=== PATIENT | female | born 1965 | race African-American/Black ===

== ENCOUNTER 2024-03-29 13:36 | Outpatient (CLI) | payer MEDICARE, MEDICAID, SELFPAY ==
--- NOTE | ~2024-03-29 | US_ITS ---
EXAM: RENAL ULTRASOUND HISTORY: CHRONIC KIDNEY DISEASE COMPARISON: None FINDINGS: RIGHT KIDNEY: 10.2 x 4.3 x 4.7 cm. The parenchyma of the right kidney is unremarkable in echogenicity. Mild hydronephrosis. No renal calculi. A single rounded anechoic avascular foci detected within the interpolar region measuring 5.4 x 5.3 x 5.9 mm, consistent with a simple cyst. LEFT KIDNEY: 10.0 x 5.1 x 4.8 cm No hydronephrosis or renal calculi. The parenchyma of the left kidney is unremarkable in echogenicity. BLADDER: The bladder is minimally distended. Bilateral ureteral jets were utilized. IMPRESSION: Mild right-sided hydronephrosis. Simple cyst within the right kidney for which no further follow-up is needed. Examination is otherwise unremarkable. Reviewed, dictated and finalized at location A. S FARMER
--- OUTSIDE RECORDS SUMMARY | 2024-03-29 13:43 | XMS_ITS | Encounter Summary ---
Author Organization [facility] Care Team Providers Care Brake Repairer Bus Name Role Phone Unknown, Notinfile Primary Care Provider Unavail able Lesli Willis MD Primary Care Provider [phone] Unknown, Notinfile Unavailable Unavailable Carly Woods MD Primary Care Provider Encounter Details Date Type Department Care Team (Latest Contact Info) Description 01/09/2018 Orders Only [facility] ProviderJune MD [address] [place] [id number] Social History Tobacco Use Types Packs/Day Years Used Date Smoking Tobacco: Never Assessed Comments Unknown Sex and Gender Information Value Date Recorded Sex Assigned at Not on file 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 Historical Provider [facility] Final Result documented in this encounter Visit Diagnoses Not on filedocumented in this encounter Care Teams Brake Repairer Bus Relationship Specialty Start Date End Date Unknown, Notinfile PCP - General 02/12/18 06/20/18 Lesli Willis MD [address] [facility] [address] [place] [address] PCP - General Internal Medicine 06/21/18 09/11/23 Carly Woods MD [address] [facility] [address] [place] [address] PCP - General Internal Medicine 09/12/23 Unknown, Notinfile 06/21/18 documented as of this encounter
--- OUTSIDE RECORDS SUMMARY | 2024-03-29 13:43 | XMS_ITS | Encounter Summary ---
Author Organization [facility] Care Team Providers Care Reuse Technician Name Role Phone Unknown, Notinfile Primary Care Provider Unavail able Lesli Willis MD Primary Care Provider [phone] Unknown, Notinfile Unavailable Unavailable Carly Woods MD Primary Care Provider Encounter Details Date Type Department Care Team (Latest Contact Info) Description 12/24/2014 Orders Only [facility]INCON[facility] ProviderJune MD [address] [place] [id number] Social History Tobacco Use Types Packs/Day Years Used Date Smoking Tobacco: Never Assessed Comments Unknown Sex and Gender Information Value Date Recorded Sex Assigned at Not on file 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 Historical Provider [facility]ELVIN Final Result documented in this encounter Visit Diagnoses Not on filedocumented in this encounter Care Teams Reuse Technician Relationship Specialty Start Date End Date Unknown, Notinfile PCP - General 02/12/18 06/20/18 Lesli Willis MD [address] [facility] [address] [place] [address] PCP - General Internal Medicine 06/21/18 09/11/23 Carly Woods MD [address] [facility] [address] [place] [address] PCP - General Internal Medicine 09/12/23 Unknown, Notinfile 06/21/18 documented as of this encounter
--- OUTSIDE RECORDS SUMMARY | 2024-03-29 13:43 | XMS_ITS | Patient Health Summary ---
Author Organization [facility] Address [address] [place] [address] Care Team Providers Care Mail Caller Name Role Phone Lesli Willis MD Primary Care Provider [phone] Olinda Bermudez RN Unavailable Unavailabl e Note from [facility],non-owned Affiliates and Associated Physician Practices is amultiple site organization consisting of ambulatory clinics and hospital sitesin [place], [place], [place] and [place]. This disclosure is being madepursuant to the Care Everywhere program and may not contain all information available regarding this patient. Last updated 17.[facility] Allergies * Ampicillin(Itching) -Low Criticality * Aspirin(Other) -Low Criticality * Codeine(Anaphylaxis) -High Criticality Medications * Be aware that medications may not be up to date on this document. Alwaysverify current medications with the patient. * metoprolol succinate XL 24hr (TOPROL XL) 100 MG tablet(Started 03/15/2017) Take 1 (one) tablet by mouth DAILY * albuterol HFA (PROAIR HFA) 108 (90 BASE) MCG/ACT inhaler(Started 11/03/2015) Inhale 2 (two) puffs by mouth every 6 hours as needed for Shortness of Breath or Cough * Iron-Vitamin C (IRON 100/C PO) Take 1 tablet by mouth once daily 100 mg iron 75 mg vitamin c per talbet * amLODIPine (NORVASC) 10 MG tablet(Started 08/04/2017) Take 1 (one) tablet by mouth once daily * budesonide-formoterol (SYMBICORT) 160-4.5 MCG/ACT inhaler(Started 03/03/2020) Inhale 2 (two) puffs by mouth 2 times daily * gabapentin (NEURONTIN) 600 MG tablet(Started 06/21/2021) Take 1 (one) tablet by mouth at bedtime * tiZANidine (Zanaflex) 4 MG tablet(Started 12/12/2021) Take 1 (one) tablet by mouth once daily as needed * losartan (Cozaar) 100 MG tablet Take 1 (one) tablet by mouth once daily * omeprazole (PriLOSEC) 20 MG capsule(Started 10/25/2023) TAKE 1 CAPSULE BY MOUTH EVERY DAY BEFORE BREAKFAST 1 refill by 10/24/2024 Active Problems Problem Noted Date Diagnosed Date Bariatric surgery status 01/05/2022 Pre-op testing 06/09/2017 Thyrotoxicosis without thyroid storm 06/18/2015 Immunizations * FLU VACCINE QUAD IIV4 SPLIT 0.25 ML IM(Given 11/07/2017) * HEP B VACCINE, ADULT 3 DOSE(Given 04/17/2007) * INFLUENZA VACCINE, QUADR. (FLUZONE; FLULAVAL; FLUARIX; AFLURIA QUADRIVALENT; 6MO+), 0.5 ML (IIV4)(Given 12/10/2021, 03/03/2020) Social History Tobacco Use Types Packs/Day Years Used Date Smoking Tobacco: Former Cigarettes Q uit: 06/17/2009 Smokeless Tobacco: Never Alcohol Use Standard Drinks/Week Comments No 0 (1 standard drink = 0.6 oz pur e alcohol) Hunger Vital Sign Answer Date Recorded Within the past 12 months, y ou worried that your food would run out before you got the money to buy more. Never true 01/07/20 22 Within the past 12 months, t he food you bought just didn't last and you didn't have money to get more. Never true 01/06/2022 Sex and Gender Information Value Date Recorded Sex Assigned at Not on file Gender Identity Not on file Sexual Orientation Not on file Last Filed Vital Signs Vital Sign Reading Time Taken Comments Blood Pressure 131/84 01/06/2023 10:13 AM MAILER APPRENTICE Pulse 55 01/06/2023 10:13 AM MAILER APPRENTICE Temperature 36.3 ??C (97.4 ??F) 01/06/2023 10:[address] Respiratory Rate 18 02/04/2022 8:34 AM MAILER APPRENTICE Oxygen Saturation 99% 01/06/2023 10:13 AM MAILER APPRENTICE Inhaled Oxygen Concentration - - Weight 87.6 kg (193 lb 3.2 oz) 01/06/2023 10:13 AM MAILER APPRENTICE Height 162.6 cm (5' 4 ) 01/06/2023 10:13 AM MAILER APPRENTICE Body Mass Index 33.16 01/06/2023 10:13 AM MAILER APPRENTICE Medical Devices Implanted Type Area Hammersmith Helper Device Identifier Shelf Expiration Date Model / Serial / Lot Stent Uret 6fr 26cm Pstnr Brd Teth Implanted:Qty: 1 on 06/09/2017 by Aleksander Marino MD at [facility] Left: [employer] 01/24/2021 [id number] / / Stent Uret 6fr 26cm Pgtl Crv Tpr Tip Implanted:Qty: 1 on 07/11/2017 by Aleksander Marino MD at [facility] [employer] 12/23/2019 [id number] / / [id number] Explanted Type Area Hammersmith Helper Device Identifier Shelf Expiration Date Model / Serial / Lot Stent Uret 6fr 24cm Pgtl Crv Tpr Tip Implanted:Qty: 1 Explanted:Qty: 1 on 06/09/2017 at [facility] Left: Ureter [place] [employer] 04/11/2020 [id number] / / Procedures * IRON + TIBC PANEL(Performed 01/06/2023) Performed for Morbid obesity (HCC), Bariatric surgery status, Vitamin deficiency, Vitamin D deficiency, Postsurgical malabsorption (HCC) * FOLATE(Performed 01/06/2023) Performed for Morbid obesity (HCC), Bariatric surgery status, Vitamin deficiency, Vitamin D deficiency, Postsurgical malabsorption (HCC) * VITAMIN D 25-HYDROXY(Performed 01/06/2023) Performed for Morbid obesity (HCC), Bariatric surgery status, Vitamin deficiency, Vitamin D deficiency, Postsurgical malabsorption (HCC) * PREALBUMIN(Performed 01/06/2023) Performed for Morbid obesity (HCC), Bariatric surgery status, Vitamin deficiency, Vitamin D deficiency, Postsurgical malabsorption (HCC) * MAGNESIUM BLOOD(Performed 01/06/2023) Performed for Morbid obesity (HCC), Bariatric surgery status, Vitamin deficiency, Vitamin D deficiency, Postsurgical malabsorption (HCC) * FERRITIN(Performed 01/06/2023) Performed for Morbid obesity (HCC), Bariatric surgery status, Vitamin deficiency, Vitamin D deficiency, Postsurgical malabsorption (HCC) * COPPER BLOOD(Performed 01/06/2023) Performed for Morbid obesity (HCC), Bariatric surgery status, Vitamin deficiency, Vitamin D deficiency, Postsurgical malabsorption (HCC) * COMPREHENSIVE METABOLIC PANEL(Performed 01/06/2023) Performed for Morbid obesity (HCC), Bariatric surgery status, Vitamin deficiency, Vitamin D deficiency, Postsurgical malabsorption (HCC) * CBC W/O DIFFERENTIAL(Performed 01/06/2023) Performed for Morbid obesity (HCC), Bariatric surgery status, Vitamin deficiency, Vitamin D deficiency, Postsurgical malabsorption (HCC) * REF LAB-REQUEST PROBLEM(Performed 01/06/2023) * ZINC BLOOD(Performed 01/06/2023) Performed for Morbid obesity (HCC), Bariatric surgery status, Vitamin deficiency, Vitamin D deficiency, Postsurgical malabsorption (HCC) * VITAMIN K1(Performed 01/06/2023) Performed for Morbid obesity (HCC), Bariatric surgery status, Vitamin deficiency, Vitamin D deficiency, Postsurgical malabsorption (HCC) * VITAMIN E(Performed 01/06/2023) Performed for Morbid obesity (HCC), Bariatric surgery status, Vitamin deficiency, Vitamin D deficiency, Postsurgical malabsorption (HCC) * VITAMIN B12(Performed 01/06/2023) Performed for Morbid obesity (HCC), Bariatric surgery status, Vitamin deficiency, Vitamin D deficiency, Postsurgical malabsorption (HCC) * VITAMIN B1(Performed 01/06/2023) Performed for Morbid obesity (HCC), Bariatric surgery status, Vitamin deficiency, Vitamin D deficiency, Postsurgical malabsorption (HCC) * VITAMIN A(Performed 01/06/2023) Performed for Morbid obesity (HCC), Bariatric surgery status, Vitamin deficiency, Vitamin D deficiency, Postsurgical malabsorption (HCC) * PTH INTACT(Performed 01/06/2023) Performed for Morbid obesity (HCC), Bariatric surgery status, Vitamin deficiency, Vitamin D deficiency, Postsurgical malabsorption (HCC) * VITAMIN D 25-HYDROXY(Performed 08/05/2022) Performed for Morbid obesity (HCC), Bariatric surgery status, Vitamin deficiency, Vitamin D deficiency, Postsurgical malabsorption (HCC) * IRON + TIBC PANEL(Performed 08/05/2022) Performed for Morbid obesity (HCC), Bariatric surgery status, Vitamin deficiency, Vitamin D deficiency, Postsurgical malabsorption (HCC) * FOLATE(Performed 08/05/2022) Performed for Morbid obesity (HCC), Bariatric surgery status, Vitamin deficiency, Vitamin D deficiency, Postsurgical malabsorption (HCC) * ZINC BLOOD(Performed 08/05/2022) Performed for Morbid obesity (HCC), Bariatric surgery status, Vitamin deficiency, Vitamin D deficiency, Postsurgical malabsorption (HCC) * VITAMIN K1(Performed 08/05/2022) Performed for Morbid obesity (HCC), Bariatric surgery status, Vitamin deficiency, Vitamin D deficiency, Postsurgical malabsorption (HCC) * VITAMIN E(Performed 08/05/2022) Performed for Morbid obesity (HCC), Bariatric surgery status, Vitamin deficiency, Vitamin D deficiency, Postsurgical malabsorption (HCC) * VITAMIN B12(Performed 08/05/2022) Performed for Morbid obesity (HCC), Bariatric surgery status, Vitamin deficiency, Vitamin D deficiency, Postsurgical malabsorption (HCC) * VITAMIN B1(Performed 08/05/2022) Performed for Morbid obesity (HCC), Bariatric surgery status, Vitamin deficiency, Vitamin D deficiency, Postsurgical malabsorption (HCC) * VITAMIN A(Performed 08/05/2022) Performed for Morbid obesity (HCC), Bariatric surgery status, Vitamin deficiency, Vitamin D deficiency, Postsurgical malabsorption (HCC) * PTH INTACT(Performed 08/05/2022) Performed for Morbid obesity (HCC), Bariatric surgery status, Vitamin deficiency, Vitamin D deficiency, Postsurgical malabsorption (HCC) * PREALBUMIN(Performed 08/05/2022) Performed for Morbid obesity (HCC), Bariatric surgery status, Vitamin deficiency, Vitamin D deficiency, Postsurgical malabsorption (HCC) * MAGNESIUM BLOOD(Performed 08/05/2022) Performed for Morbid obesity (HCC), Bariatric surgery status, Vitamin deficiency, Vitamin D deficiency, Postsurgical malabsorption (HCC) * FERRITIN(Performed 08/05/2022) Performed for Morbid obesity (HCC), Bariatric surgery status, Vitamin deficiency, Vitamin D deficiency, Postsurgical malabsorption (HCC) * COPPER BLOOD(Performed 08/05/2022) Performed for Morbid obesity (HCC), Bariatric surgery status, Vitamin deficiency, Vitamin D deficiency, Postsurgical malabsorption (HCC) * COMPREHENSIVE METABOLIC PANEL(Performed 08/05/2022) Performed for Morbid obesity (HCC), Bariatric surgery status, Vitamin deficiency, Vitamin D deficiency, Postsurgical malabsorption (HCC) * CBC W/O DIFFERENTIAL(Performed 08/05/2022) Performed for Morbid obesity (HCC), Bariatric surgery status, Vitamin deficiency, Vitamin D deficiency, Postsurgical malabsorption (HCC) * VITAMIN D 25-HYDROXY(Performed 04/28/2022) Performed for Morbid obesity (HCC), Bariatric surgery status, Vitamin deficiency, Vitamin D deficiency, Postsurgical malabsorption (HCC) * IRON + TIBC PANEL(Performed 04/28/2022) Performed for Morbid obesity (HCC), Bariatric surgery status, Vitamin deficiency, Vitamin D deficiency, Postsurgical malabsorption (HCC) * FOLATE(Performed 04/28/2022) Performed for Morbid obesity (HCC), Bariatric surgery status, Vitamin deficiency, Vitamin D deficiency, Postsurgical malabsorption (HCC) * ZINC BLOOD(Performed 04/28/2022) Performed for Morbid obesity (HCC), Bariatric surgery status, Vitamin deficiency, Vitamin D deficiency, Postsurgical malabsorption (HCC) * VITAMIN K1(Performed 04/28/2022) Performed for Morbid obesity (HCC), Bariatric surgery status, Vitamin deficiency, Vitamin D deficiency, Postsurgical malabsorption (HCC) * VITAMIN E(Performed 04/28/2022) Performed for Morbid obesity (HCC), Bariatric surgery status, Vitamin deficiency, Vitamin D deficiency, Postsurgical malabsorption (HCC) * VITAMIN B12(Performed 04/28/2022) Performed for Morbid obesity (HCC), Bariatric surgery status, Vitamin deficiency, Vitamin D deficiency, Postsurgical malabsorption (HCC) * VITAMIN B1(Performed 04/28/2022) Performed for Morbid obesity (HCC), Bariatric surgery status, Vitamin deficiency, Vitamin D deficiency, Postsurgical malabsorption (HCC) * VITAMIN A(Performed 04/28/2022) Performed for Morbid obesity (HCC), Bariatric surgery status, Vitamin deficiency, Vitamin D deficiency, Postsurgical malabsorption (HCC) * PTH INTACT(Performed 04/28/2022) Performed for Morbid obesity (HCC), Bariatric surgery status, Vitamin deficiency, Vitamin D deficiency, Postsurgical malabsorption (HCC) * PREALBUMIN(Performed 04/28/2022) Performed for Morbid obesity (HCC), Bariatric surgery status, Vitamin deficiency, Vitamin D deficiency, Postsurgical malabsorption (HCC) * MAGNESIUM BLOOD(Performed 04/28/2022) Performed for Morbid obesity (HCC), Bariatric surgery status, Vitamin deficiency, Vitamin D deficiency, Postsurgical malabsorption (HCC) * IRON BLOOD(Performed 04/28/2022) Performed for Morbid obesity (HCC), Bariatric surgery status, Vitamin deficiency, Vitamin D deficiency, Postsurgical malabsorption (HCC) * FERRITIN(Performed 04/28/2022) Performed for Morbid obesity (HCC), Bariatric surgery status, Vitamin deficiency, Vitamin D deficiency, Postsurgical malabsorption (HCC) * COPPER BLOOD(Performed 04/28/2022) Performed for Morbid obesity (HCC), Bariatric surgery status, Vitamin deficiency, Vitamin D deficiency, Postsurgical malabsorption (HCC) * COMPREHENSIVE METABOLIC PANEL(Performed 04/28/2022) Performed for Morbid obesity (HCC), Bariatric surgery status, Vitamin deficiency, Vitamin D deficiency, Postsurgical malabsorption (HCC) * CBC W/O DIFFERENTIAL(Performed 04/28/2022) Performed for Morbid obesity (HCC), Bariatric surgery status, Vitamin deficiency, Vitamin D deficiency, Postsurgical malabsorption (HCC) * CARDIAC RHYTHM STRIP ORDER(Performed 01/18/2022) * EKG 12-LEAD(Performed 01/07/2022) Performed for Bariatric surgery status * CBC W AUTO DIFFERENTIAL(Performed 01/07/2022) * BASIC METABOLIC PANEL (CALCIUM TOTAL)(Performed 01/07/2022) * GLUCOSE - POINT OF CARE(Performed 01/06/2022) * FL UGI SERIES(Performed 01/06/2022) Performed for Bariatric surgery status * GLUCOSE - POINT OF CARE(Performed 01/06/2022) * B-TYPE NATRIURETIC PEPTIDE(Performed 01/06/2022) * VITAMIN D 25-HYDROXY(Performed 01/06/2022) * CBC W AUTO DIFFERENTIAL(Performed 01/06/2022) * BASIC METABOLIC PANEL (CALCIUM TOTAL)(Performed 01/06/2022) * TROPONIN I(Performed 01/06/2022) * GLUCOSE - POINT OF CARE(Performed 01/05/2022) * TROPONIN I(Performed 01/05/2022) * GLUCOSE - POINT OF CARE(Performed 01/05/2022) * GLUCOSE - POINT OF CARE(Performed 01/05/2022) * ENDOTRACHEAL TUBE NOTE(Performed 01/05/2022) * LAPAROSCOPIC REVISION GASTRIC BYPASS/KYM-EN-Y(Performed 01/05/2022) * GLUCOSE - POINT OF CARE(Performed 01/05/2022) * POTASSIUM BLOOD(Performed 01/05/2022) Performed for Pre-op evaluation * COMPREHENSIVE METABOLIC PANEL(Performed 12/15/2021) Performed for Pre-op evaluation * EKG 12-LEAD(Performed 12/15/2021) Performed for Pre-op evaluation * HELICOBACTER PYLORI UREA BREATH TEST(Performed 12/03/2021) Performed for H. pylori infection * HELICOBACTER PYLORI UREASE (STL)(Performed 10/29/2021) Performed for Diagnosis deferred * [place] ED EGD FLEX TRANSORAL DX(Performed 10/29/2021) * EGD(Performed 10/29/2021) * FL UGI SERIES(Performed 08/09/2021) Performed for Morbid obesity (HCC), Intestinal malabsorption, unspecified type (HCC), Bariatric surgery status * ZINC BLOOD(Performed 08/02/2021) Performed for Morbid obesity (HCC), Intestinal malabsorption, unspecified type (HCC), Bariatric surgery status * VITAMIN K1(Performed 08/02/2021) Performed for Morbid obesity (HCC), Intestinal malabsorption, unspecified type (HCC), Bariatric surgery status * VITAMIN E(Performed 08/02/2021) Performed for Morbid obesity (HCC), Intestinal malabsorption, unspecified type (HCC), Bariatric surgery status * VITAMIN D 25-HYDROXY(Performed 08/02/2021) Performed for Morbid obesity (HCC), Intestinal malabsorption, unspecified type (HCC), Bariatric surgery status * VITAMIN B12(Performed 08/02/2021) Performed for Morbid obesity (HCC), Intestinal malabsorption, unspecified type (HCC), Bariatric surgery status * VITAMIN B1(Performed 08/02/2021) Performed for Morbid obesity (HCC), Intestinal malabsorption, unspecified type (HCC), Bariatric surgery status * VITAMIN A(Performed 08/02/2021) Performed for Morbid obesity (HCC), Intestinal malabsorption, unspecified type (HCC), Bariatric surgery status * PREALBUMIN(Performed 08/02/2021) Performed for Morbid obesity (HCC), Intestinal malabsorption, unspecified type (HCC), Bariatric surgery status * IRON + TIBC PANEL(Performed 08/02/2021) Performed for Morbid obesity (HCC), Intestinal malabsorption, unspecified type (HCC), Bariatric surgery status * FERRITIN(Performed 08/02/2021) Performed for Morbid obesity (HCC), Intestinal malabsorption, unspecified type (HCC), Bariatric surgery status * COPPER BLOOD(Performed 08/02/2021) Performed for Morbid obesity (HCC), Intestinal malabsorption, unspecified type (HCC), Bariatric surgery status * COMPREHENSIVE METABOLIC PANEL(Performed 08/02/2021) Performed for Morbid obesity (HCC), Intestinal malabsorption, unspecified type (HCC), Bariatric surgery status * CBC W AUTO DIFFERENTIAL(Performed 08/02/2021) Performed for Morbid obesity (HCC), Intestinal malabsorption, unspecified type (HCC), Bariatric surgery status * CARDIAC EKG ORDER(Performed 01/12/2018) * CARDIAC EKG ORDER(Performed 07/13/2017) * STONE ANALYSIS QUANT(Performed 07/11/2017) Performed for Renal calculus or stone * PATHOLOGY TISSUE(Performed 07/11/2017) Performed for Kidney stone * FL KOMAL SURGERY(Performed 07/11/2017) Performed for Renal calculus or stone * CYSTOSCOPY WITH RETROGRADE PYELOGRAM(Performed 07/11/2017) Performed for Kidney stone * CYSTOSCOPY URETEROSCOPY WITH LASER/HOLMIUM LITHOTRIPSY(Performed 07/11/2017) Performed for Kidney stone * ENDOTRACHEAL TUBE NOTE(Performed 07/11/2017) * POTASSIUM (EPOC) CHARLES - POCT(Performed 07/11/2017) * EKG 12-LEAD(Performed 07/11/2017) Performed for Pre-op testing * LAB RESULTS ORDER(Performed 07/07/2017) * XR ABDOMEN KUB(Performed 06/23/2017) Performed for Renal stones * CARDIAC RHYTHM STRIP ORDER(Performed 06/13/2017) * LARYNGEAL MASK AIRWAY(Performed 06/09/2017) * CYSTOSCOPY WITH INSERTION URETERAL STENT(Performed 06/09/2017) Performed for Diagnosis unknown * EXTRACORPOREAL SHOCK WAVE LITHOTRIPSY (ESWL)(Performed 06/09/2017) Performed for Diagnosis unknown * XR ABDOMEN KUB(Performed 06/09/2017) Performed for Pre-op testing * XR ABDOMEN KUB(Performed 05/10/2017) Performed for Calculus of kidney * URINALYSIS AUTO - POINT OF CARE (AMB) [facility](Performed 05/10/2017) * CBC W AUTO DIFFERENTIAL(Performed 05/10/2017) * BASIC METABOLIC PANEL (CALCIUM TOTAL)(Performed 05/10/2017) * CULTURE URINE(Performed 05/10/2017) * CT ABDOMEN PELVIS WO CONTRAST(Performed 03/23/2017) Performed for Kidney stones * URINALYSIS AUTO - POINT OF CARE (AMB) [facility](Performed 03/15/2017) * REF LAB-PLEASE NOTE(Performed 03/15/2017) * CULTURE URINE(Performed 03/15/2017) * LAB HISTORICAL RESULTS-ONBASE(Performed 11/05/2015) Results * (ABNORMAL) IRON + TIBC PANEL (01/06/2023 12:42 PM MAILER APPRENTICE) Only the most recent of4 resultswithin the time period is included. TIBC 290 250 - 450 ug/dL [facility] INSURANCE BILL UIBC 253 131 - 425 ug/dL [facility] INSURANCE BILL Iron 37 27 - 159 ug/dL [facility] INSURANCE BILL Iron Saturation 13(L) 15 - 55 % [facility] INSURANCE BILL Comment:FASTING Blood BLOOD SPECIMEN / Unknown 01/06/2023 12:42 PM MAILER APPRENTICE 01/06/2023 Narrative Resulting Agency Comment Lab Testing performed at: [facility] [place] [address] ??[facility] [id number] Karin Delvalle [facility] - CHEMIS TRY ORDERABLES Performing Organization Address City/State/[facility] Co de Phone Number [facility] INSURANCE BILL [address] [place] [address] * FOLATE (01/06/2023 12:42 PM MAILER APPRENTICE) Only the most recent of3 resultswithin the time period is included. Folate >20.0 >3.0 ng/mL [facility] INSURANCE BILL Comment: A serum folate concentration of less than 3.1 ng/mL is considered to represent clinical deficiency. FASTING Blood BLOOD SPECIMEN / Unknown 01/06/2023 12:42 PM MAILER APPRENTICE 01/06/2023 Narrative Resulting Agency Comment Lab Testing performed at: [facility] [place] [address] ??[facility] [id number] Karin Delvalle APRN-[employer]ING ROLLING MACHINE OPERATOR LAB - CHEMIS TRY ORDERABLES [facility] INSURANCE BILL [address] [place] [address] * COPPER BLOOD (01/06/2023 12:41 PM MAILER APPRENTICE) Only the most recent of4 resultswithin the time period is included. Copper 92 80 - 158 ug/dL [facility] Comment: ? Detection Limit = 5 FASTING Blood BLOOD SPECIMEN / Unknown 01/06/2023 12:41 PM MAILER APPRENTICE 01/06/2023 Narrative [facility] - 01/17/2023 4:07 PM MAILER APPRENTICE Test(s) [id number], Serum or Plasma was developed and its performance characteristics determined by [employer]. It has not been cleared or approved by the Food and Drug Administration. Resulting Agency Comment Lab Testing performed at: [facility] ??[facility] [id number] Karin Delvalle APRN-RING ROLLING MACHINE OPERATOR LAB - CHEMIS TRY ORDERABLES Performing Organization Address City/[facility] Co de Phone Number [facility] INSURANCE BILL [address] [place] [address] * VITAMIN D 25-HYDROXY (01/06/2023 12:41 PM MAILER APPRENTICE) Only the most recent of5 resultswithin the time period is included. Vitamin D, 25 Hydroxy 38.7 30.0 - 100.0 ng/mL [facility] Comment: Vitamin D deficiency has been defined by the [place] of Medicine and an Endocrine Society practice guideline as a level of serum 25-OH vitamin D less than 20 ng/mL (1,2). The Endocrine Society went on to further define vitamin D insufficiency as a level between 21 and 29 ng/mL (2). 1. IOM ([place] of Medicine). 2010. Dietary reference ?? intakes for calcium and D. [place]: The ?? National Academies Press. 2. Neli MF, Mary LOMAX, Maximus SAMAYOA et al. ?? Evaluation, treatment, and prevention of vitamin D ?? deficiency: an Endocrine Society clinical practice ?? guideline. JCEM. 2011 Aug; 96(7):1911-30. FASTING Blood BLOOD SPECIMEN / Unknown 01/06/2023 12:41 PM MAILER APPRENTICE 01/06/2023 Narrative Resulting Agency Comment Lab Testing performed at: [facility] [place] [address] ??[facility] [phone] Karin Delvalle APRN-RING ROLLING MACHINE OPERATOR LAB - CHEMIS TRY ORDERABLES [facility] INSURANCE BILL [address] [place] [address] * CBC W/O DIFFERENTIAL (01/06/2023 12:41 PM MAILER APPRENTICE) Only the most recent of3 resultswithin the time period is included. WBC 6.2 3.4 - 10.8 x10E3/uL [facility] INSURANCE BILL RBC 4.20 3.77 - 5.28 x10E6/uL [facility] INSURANCE BILL Hemoglobin 11.2 11.1 - 15.9 g/dL [facility] INSURANCE BILL Hematocrit 35.2 34.0 - 46.6 % [facility] INSURANCE BILL MCV 84 79 - 97 fL [facility] INSURANCE BILL MCH 26.7 26.6 - 33.0 pg [facility] INSURANCE BILL MCHC 31.8 31.5 - 35.7 g/dL [facility] INSURANCE BILL RDW 13.1 11.7 - 15.4 % [facility] INSURANCE BILL Platelet Count 179 150 - 450 x10E3/uL [facility] INSURANCE BILL nRBC NOT AVAILABLE [facility] INSURANCE BILL Comment: FASTING Result cannot be obtained for this observation. Blood BLOOD SPECIMEN / Unknown 01/06/2023 12:41 PM MAILER APPRENTICE 01/06/2023 Narrative Resulting Agency Comment Lab Testing performed at: [facility] [place] [address] ??[facility] [phone] Karin Delvalle APRN-RING ROLLING MACHINE OPERATOR LAB - HEMATO LOGY ORDERABLES [facility] INSURANCE BILL [address] [place] [address] * COMPREHENSIVE METABOLIC PANEL (01/06/2023 12:41 PM MAILER APPRENTICE) Only the most recent of5 resultswithin the time period is included. Glucose 85 70 - 99 mg/dL [facility] INSURANCE BILL BUN 17 6 - 24 mg/dL [facility] INSURANCE BILL Creatinine 1.00 0.57 - 1.00 mg/dL [facility] INSURANCE BILL eGFR by CKD-EPI 65 >59 mL/min/1.7 3 [facility] INSURANCE BILL BUN/Creatinine Ratio 17 9 - 23 [facility] INSURANCE BILL Sodium 141 134 - 144 mmol/L [facility] INSURANCE BILL Potassium 4.4 3.5 - 5.2 mmol/L [facility] INSURANCE BILL Chloride 103 96 - 106 mmol/L [facility] INSURANCE BILL CO2 25 20 - 29 mmol/L [facility] INSURANCE BILL Calcium 9.4 8.7 - 10.2 mg/dL [facility] INSURANCE BILL Protein Total 6.9 6.0 - 8.5 g/dL [facility] INSURANCE BILL Albumin 4.2 3.8 - 4.9 g/dL [facility] INSURANCE BILL Globulin Total 2.7 1.5 - 4.5 g/dL [facility] INSURANCE BILL Albumin/Globulin Ratio 1.6 1.2 - 2.2 [facility] INSURANCE BILL Bilirubin Total 1.1 0.0 - 1.2 mg/dL [facility] INSURANCE BILL Alkaline Phosphatase 110 44 - 121 IU/L [facility] INSURANCE BILL AST 21 0 - 40 IU/L [facility] INSURANCE BILL ALT 15 0 - 32 IU/L [facility] INSURANCE BILL Comment:FASTING Blood BLOOD SPECIMEN / Unknown 01/06/2023 12:41 PM MAILER APPRENTICE 01/06/2023 Narrative Resulting Agency Comment Lab Testing performed at: [facility] [place] [address] ??[facility] [phone] Karin Delvalle PUBLIC STENOGRAPHER-RING ROLLING MACHINE OPERATOR LAB - CHEMIS TRY ORDERABLES [facility] INSURANCE BILL [address] [place] [address] * PREALBUMIN (01/06/2023 12:41 PM MAILER APPRENTICE) Only the most recent of4 resultswithin the time period is included. Prealbumin 18 10 - 36 mg/dL [facility] INSURANCE BILL Comment:FASTING Blood BLOOD SPECIMEN / Unknown 01/06/2023 12:41 PM MAILER APPRENTICE 01/06/2023 Narrative Resulting Agency Comment Lab Testing performed at: [employer] [address] ??[facility] [phone] Karin Delvalle APRN-[place] LAB - CHEMIS TRY ORDERABLES Performing Organization Address [facility] Co de Phone Number [facility] INSURANCE BILL [address] [place] [address] * MAGNESIUM BLOOD (01/06/2023 12:41 PM MAILER APPRENTICE) Only the most recent of3 resultswithin the time period is included. Magnesium 2.3 1.6 - 2.3 mg/dL [facility] INSURANCE BILL Comment:FASTING Blood BLOOD SPECIMEN / Unknown 01/06/2023 12:41 PM MAILER APPRENTICE 01/06/2023 Narrative Resulting Agency Comment Lab Testing performed at: [facility] [address] ??[facility] [phone] Karin Delvalle APRN-[place] LAB - CHEMIS TRY ORDERABLES Performing Organization Address [facility] Co de Phone Number [facility] INSURANCE BILL [address] [place] [address] * FERRITIN (01/06/2023 12:41 PM MAILER APPRENTICE) Only the most recent of4 resultswithin the time period is included. Ferritin 84 15 - 150 ng/mL [facility] INSURANCE BILL Comment:FASTING Blood BLOOD SPECIMEN / Unknown 01/06/2023 12:41 PM MAILER APPRENTICE 01/06/2023 Narrative Resulting Agency Comment Lab Testing performed at: [facility] [address] ??[facility] [phone] Karin Delvalle APRN-RING ROLLING MACHINE OPERATOR LAB - CHEMIS TRY ORDERABLES Performing Organization Address [facility] Co de Phone Number [facility] INSURANCE BILL [address] [place] [address] * (ABNORMAL) REF LAB-REQUEST PROBLEM (01/06/2023 12:40 PM MAILER APPRENTICE) Request Problem NOT AVAILABLE (A) [facility] INSURANCE BILL Comment: Comment: Test not performed. Deterioration occurred during specimen handling. ?TEST: ??[id number] ??Zinc, Plasma or Serum CONTACTED BY WALKER Morgan RN AT YOUR FACILITY ON 01-27-23. FASTING Result cannot be obtained for this observation. 01/06/2023 12:4 0 PM MAILER APPRENTICE 01/06/2023 Narrative [facility] INSURANCE BILL - 01/27/2023 4:07 PM MAILER APPRENTICE Test(s) 083928-Tztd, Plasma or Serum was developed and its performance characteristics determined by [employer]. It has not been cleared or approved by the Food and Drug Administration. Resulting Agency Comment Lab Testing performed at: [employer] ??[facility] [phone] Karin Delvalle APRN-RING ROLLING MACHINE OPERATOR LAB - CHEMIS TRY ORDERABLES Performing Organization Address [facility] Co de Phone Number [facility] INSURANCE BILL [address] [place] [address] * VITAMIN K1 (01/06/2023 12:40 PM MAILER APPRENTICE) Only the most recent of4 resultswithin the time period is included. Vitamin K1 0.19 0.10 - 2.20 ng/mL [facility] INSURANCE BILL Comment:FASTING Blood BLOOD SPECIMEN / Unknown 01/06/2023 12:40 PM MAILER APPRENTICE 01/06/2023 Narrative [facility] INSURANCE BILL - 01/15/2023 8:06 AM MAILER APPRENTICE Test(s) 227277-Czzyhgf K1 was developed and its performance characteristics determined by [employer]. It has not been cleared or approved by the Food and Drug Administration. Resulting Agency Comment Lab Testing performed at: [employer] [address] ??[facility] [phone] Karin Delvalle [facility]NCHAR[facility] LAB - CHEMCrowdTogether TRY ORDERABLES Performing Organization Address [facility] de Phone Number [facility] INSURANCE BILL [address] [place] [address] * ZINC BLOOD (01/06/2023 12:40 PM MAILER APPRENTICE) Only the most recent of4 resultswithin the time period is included. Zinc, Plasma or Serum NOT AVAILABLE ug/dL [facility] INSURANCE BILL Comment: Test not performed. Deterioration occurred during specimen handling. CONTACTED BY WALKER Morgan RN AT YOUR FACILITY ON 01-27-23. ? Detection Limit = 5 FASTING Result cannot be obtained for this observation. Blood BLOOD SPECIMEN / Unknown 01/06/2023 12:40 PM MAILER APPRENTICE 01/06/2023 Narrative [facility] INSURANCE BILL - 01/27/2023 4:07 PM MAILER APPRENTICE Test(s) 537619-Gphu, Plasma or Serum was developed and its performance characteristics determined by [employer]. It has not been cleared or approved by the Food and Drug Administration. Resulting Agency Comment Lab Testing performed at: [employer] ??[facility] [phone] Karin Delvalle APRNTroodonSAUGUS GENERAL HOSPITAL PathAR CHEMCrowdTogether TRY ORDERABLES Performing Organization Address [facility] de Phone Number [facility] INSURANCE BILL [address] [place] [address] * VITAMIN A (01/06/2023 12:40 PM MAILER APPRENTICE) Only the most recent of4 resultswithin the time period is included. Vitamin A 28.5 20.1 - 62.0 ug/dL [facility] INSURANCE BILL Comment: Reference intervals for vitamin A determined [facility]. Individuals with vitamin A less than 20 ug/dL are considered vitamin A deficient and those with serum concentrations less than 10 ug/dL are considered severely deficient. ?. This test was developed and its performance characteristics determined by [facility]. It has not been cleared or approved by the Food and Drug Administration. FASTING Blood BLOOD SPECIMEN / Unknown 01/06/2023 12:40 PM MAILER APPRENTICE 01/06/2023 Narrative [facility] - 01/13/2023 6:07 AM MAILER APPRENTICE Test(s) 349405-Vrlfxby E(Alpha Tocopherol); 549184- Vitamin E(Gamma Tocopherol) was developed and its performance characteristics determined by [facility]. It has not been cleared or approved by the Food and Drug Administration. Resulting Agency Comment Lab Testing performed at: [address] ??[facility] [phone] Karin Delvalle APRN-RING ROLLING MACHINE OPERATOR LAB - CHEMIS TRY ORDERABLES [facility] INSURANCE BILL [address] [place] [address] * VITAMIN E (01/06/2023 12:40 PM MAILER APPRENTICE) Only the most recent of4 resultswithin the time period is included. Vitamin E Alpha Tocopherol 10.0 7.0 - 25.1 mg/L [facility] INSURANCE BILL Vitamin E Gamma Tocopherol 0.7 0.5 - 5.5 mg/L [facility] INSURANCE BILL Comment: Reference intervals for alpha and gamma-tocopherol determined from National Health and Nutrition Examination Survey, 1141-9832. Individuals with alpha-tocopherol levels less than 5.0 mg/L are considered vitamin E deficient. FASTING Blood BLOOD SPECIMEN / Unknown 01/06/2023 12:40 PM MAILER APPRENTICE 01/06/2023 Narrative [facility] INSURANCE BILL - 01/13/2023 6:07 AM MAILER APPRENTICE Test(s) 026477-Tslmnnx E(Alpha Tocopherol); 513888- Vitamin E(Gamma Tocopherol) was developed and its performance characteristics determined by [facility]. It has not been cleared or approved by the Food and Drug Administration. Resulting Agency Comment Lab Testing performed at: [facility] ??[facility] [phone] Karin Delvalle APRN-RING ROLLING MACHINE OPERATOR LAB - CHEMIS TRY ORDERABLES Performing Organization Address City/[facility]/ZIP Co de Phone Number [facility] INSURANCE BILL [address] [place] [address] * VITAMIN B1 (01/06/2023 12:40 PM MAILER APPRENTICE) Only the most recent of4 resultswithin the time period is included. Vitamin B1 Whole Blood 113.4 66.5 - 200.0 nmol/L [facility] Comment:FASTING Blood BLOOD SPECIMEN / Unknown 01/06/2023 12:40 PM MAILER APPRENTICE 01/06/2023 Narrative [facility] - 01/10/2023 6:06 AM MAILER APPRENTICE Test(s) 335052-Uqm. B1, Whole Blood was developed and its performance characteristics determined by [employer]. It has not been cleared or approved by the Food and Drug Administration. Resulting Agency Comment Lab Testing performed at: [facility] ??[facility] [phone] Karin Delvalle APRN-RING ROLLING MACHINE OPERATOR LAB - CHEMIS TRY ORDERABLES Performing Organization Address [facility] de Phone Number [facility] INSURANCE BILL [address] [place] [address] * PTH INTACT (01/06/2023 12:40 PM MAILER APPRENTICE) Only the most recent of3 resultswithin the time period is included. PTH Intact 35 15 - 65 pg/mL [facility] Comment:FASTING Blood BLOOD SPECIMEN / Unknown 01/06/2023 12:40 PM MAILER APPRENTICE 01/06/2023 Narrative Resulting Agency Comment Lab Testing performed at: [facility] [address] ??[facility] [phone] Karin Delvalle APRN-RING ROLLING MACHINE OPERATOR LAB - CHEMIS TRY ORDERABLES Performing Organization Address City/[facility]/ZIP Co de Phone Number [facility] [address] [place] [address] * VITAMIN B12 (01/06/2023 12:40 PM MAILER APPRENTICE) Only the most recent of4 resultswithin the time period is included. Pathologist [facility] Vitamin B12 627 232 - 1,245 pg/mL [facility] INSURANCE BILL Comment:FASTING Blood BLOOD SPECIMEN / Unknown 01/06/2023 12:40 PM MAILER APPRENTICE 01/06/2023 Narrative Resulting Agency Comment Lab Testing performed at: [facility] [place] [address] ??[facility] [phone] Karin Delvalle PUBLIC STENOGRAPHERINCOM Storage LAB - CHEMIS TRY ORDERABLES [facility] INSURANCE BILL [address] [place] [address] * IRON BLOOD (04/28/2022 10:10 AM MAILER APPRENTICE) [facility] Iron 33 27 - 159 ug/dL [facility] Blood BLOOD SPECIMEN / Unknown 04/28/2022 10:10 AM MAILER APPRENTICE 04/28/2022 Narrative Resulting Agency Comment Lab Testing performed at: [facility] [place] [address] ??[facility] [phone] Karin Delvalle APRNINCOM Storage LAB - CHEMIS TRY ORDERABLES [facility] INSURANCE BILL [address] [place] [address] * CARDIAC RHYTHM STRIP ORDER (01/18/2022 1:02 AM MAILER APPRENTICE) Only the most recent of2 resultswithin the time period is included. Narrative 01/18/2022 1:02 AM MAILER APPRENTICE Ordered by an unspecified provider. Scanned Document CARDIAC SERVICES ORD ERABLES * EKG 12-LEAD (01/07/2022 9:29 AM MAILER APPRENTICE) Only the most recent of3 resultswithin the time period is included. [facility] Ventricular Rate 48 BPM [facility] Atrial Rate 48 BPM [facility] P-R Interval 172 ms [facility] QRS Duration ms 88 ms [facility] Q-T Interval ms 462 ms [facility] QTC Calculation (Bezet) 412 ms [facility] Calculated P [employer] 46 degrees [facility]USE Calculated R [employer] 11 degrees [facility] Calculated T [employer] 16 degrees [facility] Interpretation EKG Sinus bradycardia Minimal voltage criteria for LVH, may be normal variant Borderline ECG When compared with ECG of 15-DEC-2021 13:17, No significant change was found Confirmed by ALEX VIEYRA, BETTY ([id number]) on 01/07/2022 11:41:00 AM [facility] 01/07/2022 9:29 AM MAILER APPRENTICE 01/07/2022 11:41 AM MAILER APPRENTICE Devante Tracey MD ECG ORDERABLES [facility] * (ABNORMAL) CBC W AUTO DIFFERENTIAL (01/07/2022 4:49 AM MAILER APPRENTICE) Only the most recent of4 resultswithin the time period is included. WBC 9.2 4.4 - 10.7 x10E9/L 01/07/2022 5:19 AM MAILER APPRENTICE [facility] WBC Corrected 01/07/2022 5:19 AM MAILER APPRENTICE [facility] RBC 4.02 3.80 - 5.20 x10E12/L 01/07/2022 5:19 AM MAILER APPRENTICE [facility] Hemoglobin 10.1(L) 12.0 - 15.6 gm/dL 01/07/2022 5:19 AM MAILER APPRENTICE [facility] Hematocrit 32.9(L) 35.9 - 45.5 % 01/07/2022 5:19 AM MAILER APPRENTICE [facility] MCV 81.8 80.7 - 98.3 fl 01/07/2022 5:19 AM MAILER APPRENTICE [facility] MCH 25.1(L) 26.7 - 34.0 pg 01/07/2022 5:19 AM MAILER APPRENTICE [facility] MCHC 30.7(L) 30.8 - 35.9 gm/dL 01/07/2022 5:19 AM MAILER APPRENTICE [facility] Platelet Count 194 153 - 416 x10E9/L 01/07/2022 5:19 AM MAILER APPRENTICE [facility] RDW-CV 14.5 12.1 - 14.9 % 01/07/2022 5:19 AM [facility] MPV 11.3 9.4 - 12.9 fl 01/07/2022 5:19 AM [facility] Neutrophils % 63.5 44.0 - 73.0 % 01/07/2022 5:19 AM [facility] Lymphocytes % 29.5 20.0 - 43.0 % 01/07/2022 5:19 AM [facility] Monocytes % 6.0 5.0 - 13.0 % 01/07/2022 5:19 AM [facility] Eosinophils % 0.4 0.0 - 6.0 % 01/07/2022 5:19 AM [facility] Basophils % 0.3 0.0 - 2.0 % 01/07/2022 5:19 AM [facility] Immature Granulocytes 0.3 0 - 1 % 01/07/2022 5:19 AM [facility] Neutrophil Absolute 5.86 2.01 - 7.14 x10E9/L 01/07/2022 5:19 AM [facility] Lymphocytes Absolute 2.73 1.07 - 3.94 x10E9/L 01/07/2022 5:19 AM [facility] Monocytes Absolute 0.55 0.26 - 1.07 x10E9/L 01/07/2022 5:19 AM [facility] Eosinophils Absolute 0.04 0 - 0.47 x10E9/L 01/07/2022 5:19 AM [facility] Basophils Absolute 0.03 0 - 0.08 x10E9/L 01/07/2022 5:19 AM [facility] Immature Granulocytes Absolute 0.03 0.00 - 0.06 x10E9/L 01/07/2022 5:19 AM [facility] nRBC Auto 0 /100 WBC 01/07/2022 5:19 AM [facility] Blood BLOOD SPECIMEN / Unknown Venipuncture / Unknown 01/07/2022 4:49 AM MAILER APPRENTICE 01/07/2022 5:00 AM MAILER APPRENTICE Devante Tracey MD LAB - HEMATOLOGY ORD ERABLES [facility] [address] [place] [address] * (ABNORMAL) BASIC METABOLIC PANEL (CALCIUM TOTAL) (01/07/2022 4:49 AM MAILER APPRENTICE) Only the most recent of3 resultswithin the time period is included. Glucose 97 70 - 105 mg/dL 01/07/2022 5:32 AM MAILER APPRENTICE [facility] Sodium 139 136 - 145 mmol/L 01/07/2022 5:32 AM [facility] Potassium 3.5 3.5 - 5.1 mmol/L 01/07/2022 5:32 AM [facility] Chloride 105 98 - 107 mmol/L 01/07/2022 5:32 AM [facility] CO2 24 23 - 31 mmol/L 01/07/2022 5:32 AM [facility] Calcium 9.0 8.4 - 10.4 mg/dL 01/07/2022 5:32 AM [facility] Anion Gap 10 8 - 18 mmol/L 01/07/2022 5:32 AM [facility] BUN 28(H) 9.8 - 20.1 mg/dL 01/07/2022 5:32 AM [facility] Creatinine 1.48(H) 0.57 - 1.11 mg/dL 01/07/2022 5:32 AM [facility] eGFR by CKD-EPI 41(L) >=90 mL/min/1.7 3 m2 01/07/2022 5:32 AM [facility] Blood BLOOD SPECIMEN / Unknown Venipuncture / Unknown 01/07/2022 4:49 AM MAILER APPRENTICE 01/07/2022 5:00 AM MAILER APPRENTICE Devante Tracey MD LAB - CHEMISTRY BESSIE BARNARD [facility] [address] [place] [address] * (ABNORMAL) GLUCOSE - POINT OF CARE (01/06/2022 11:31 AM MAILER APPRENTICE) Only the most recent of6 resultswithin the time period is included. Glucose WB/POC 143(H) 70 - 106 mg/dL 01/06/2022 11:36 AM MAILER APPRENTICE [facility] Specimen Type Cap Fingerstick 2021 11:36 AM MAILER APPRENTICE [facility] Blood BLOOD SPECIMEN / Unknown 01/06/2022 11:31 AM MAILER APPRENTICE 01/06/2022 11:35 AM MAILER APPRENTICE Devante Tracey MD LAB - POINT OF CARE ORDERABLES [facility] [address] [place] [address] * FL UGI SERIES WO KUB (01/06/2022 9:51 AM MAILER APPRENTICE) Only the most recent of2 resultswithin the time period is included. Anatomical Region Laterality Modality Abdomen Radiographic Chantel ging 01/06/2022 10:1 1 AM MAILER APPRENTICE Impressions 01/06/2022 10:44 AM MAILER APPRENTICE IMPRESSION: There is no evidence of obstruction or leak status post revision of Kym-en-Y gastric bypass. Edited by Ruth Durant on 01/06/2022 10:23 AM > Interpreting Provider: Yusra Burnham MD on 01/06/2022 10:44 AM Narrative 01/06/2022 10:44 AM MAILER APPRENTICE PROCEDURE: ??FL UGI SERIES, DATE/TIME OF EXAM: ??01/06/2022 9:53 AM, LOCATION [facility] INDICATION: Z98.84: Bariatric surgery status ADDITIONAL CLINICAL INFORMATION: Ordering Provider Reason For Exam: ??Postoperative day 1 laparoscopic revision of gastric bypass/Kym-en-Y Technologist Note: Additional: COMPARISON: None. TECHNIQUE: 50 mL of Isovue-370 was administered orally following acquisition of a metal cut off saw tender view of the abdomen. FINDINGS: Flight Operations Manager view shows atelectasis at the left lung base. Bowel gas pattern appears benign. Surgical clips are present in the right upper quadrant of the abdomen. Following administration of contrast, the esophagus empties readily into a small gastric remnant. The gastric remnant empties rapidly into a loop of small bowel of normal caliber. There is no evidence of obstruction or of leak. FLUOROSCOPY DOSE: ??9.61 mGy Reference air kerma (ka,r). FLUOROSCOPY TIME: ??0.24 minutes; Number of images: ??91 Procedure Note Yusra Burnham MD - 01/06/2022 PROCEDURE: FL UGI SERIES, DATE/TIME OF EXAM: 01/06/2022 9:53 AM,LOCATION [facility] INDICATION: Z98.84: Bariatric surgery status ADDITIONAL CLINICAL INFORMATION: Ordering Provider Reason For Exam: Postoperative day 1 laparoscopic revision of gastric bypass/Kym-en-Y Technologist Note: Additional: COMPARISON: None. TECHNIQUE: 50 mL of Isovue-370 was administered orally following acquisition of a metal cut off saw tender view of the abdomen. FINDINGS: Flight Operations Manager view shows atelectasis at the left lung base. Bowel gas pattern appears benign. Surgical clips are present in the right upper quadrantof the abdomen. Following administration of contrast, the esophagus empties readily intoa small gastric remnant. The gastric remnant empties rapidly into a loopof small bowel of normal caliber. There is no evidence of obstruction or of leak. FLUOROSCOPY DOSE: 9.61 mGy Reference air kerma (ka,r). FLUOROSCOPY TIME: 0.24 minutes; Number of images: 91 IMPRESSION: There is no evidence of obstruction or leak status post revision of Kym-en-Y gastric bypass. Edited by Ruth Durant on 01/06/2022 10:23 AM > Interpreting Provider: Yusra Burnham MD on 01/06/2022 10:44 AM Devante Tracey MD FLUOROSCOPY ORDERABL ES * (ABNORMAL) TROPONIN I (01/06/2022 2:51 AM MAILER APPRENTICE) Only the most recent of2 resultswithin the time period is included. Troponin I 0.049(HH) <0.038 ng/mL 01/06/2022 3:45 AM MAILER APPRENTICE [facility] Blood BLOOD SPECIMEN / Unknown Venipuncture / Unknown 01/06/2022 2:51 AM MAILER APPRENTICE 01/06/2022 2:58 AM MAILER APPRENTICE Devante Tracey MD LAB - CHEMISTRY BESSIE BARNARD [facility] Organization Address City/State/ZIP Co de Phone Number [facility] [address] [place] [address] * B-TYPE NATRIURETIC PEPTIDE (01/06/2022 2:51 AM MAILER APPRENTICE) BNP 51 <=100 pg/mL 01/06/2022 3:35 AM MAILER APPRENTICE [facility] Blood BLOOD SPECIMEN / Unknown Venipuncture / Unknown 01/06/2022 2:51 AM MAILER APPRENTICE 01/06/2022 2:58 AM MAILER APPRENTICE Devante Tracey MD LAB - CHEMISTRY BESSIE BARNARD [facility] [address] [place] [address] * ETT LINE PERFORMABLE (01/05/2022 11:14 AM MAILER APPRENTICE) Narrative Mariaa Luevano APRN-CRNA - 01/05/2022 11:14 AM MAILER APPRENTICE Mariaa Luevano APRN-CRNA ? 01/05/2022 11:33 AM Endotracheal Tube Placement: ? Patient Location: OR. Intubation Event Date/Time: ??01/05/2022 11:14 AM Procedure: intubation ([id number]). Procedure Section: ?? Sedation: under general anesthesia. Indications for Airway Management: ??anesthesia Induction: standard IV Patient Position: ??sniffing Mask Ventilation: easy with oral airway. Blade Type: Video Blade Size: 3 Laryngoscopy View: grade 1 (full cords) Intubation Adjuncts: stylet and video laryngoscope Placement: oral Tube type: cuff - inflated Tube Size (MM): 7 Depth of Insertion (CM): 22 Measured From: gums Cuff volume (mL): ??7 Cuff Inflated With: air Number of Attempts: 1. Placement Verified By: direct visualization, bilateral breath sounds, chest auscultation and CO2 monitor Tube secured with: ??adhesive tape. Dentition unchanged? ??Yes Difficult Airway? ??No. Procedure Start Time: 01/05/2022 11:14 AM. Procedure End Time: 01/05/2022 11:33 AM. Procedure Total Time: 19 ??minutes. Staff Section ? Anesthesia Provider: Mariaa Luevano APRN-CRNA, Performed the procedure Sam Hicks MD GENERAL ANESTHESIA O RDERABLES * (ABNORMAL) POTASSIUM BLOOD (01/05/2022 9:32 AM MAILER APPRENTICE) Potassium 3.4(L) 3.5 - 5.1 mmol/L 01/05/2022 9:58 AM MAILER APPRENTICE [facility] Blood BLOOD SPECIMEN / Unknown Venipuncture / Unknown 01/05/2022 9:32 AM MAILER APPRENTICE 01/05/2022 9:45 AM MAILER APPRENTICE Ana Lei DO LAB - CHEMISTRY BESSIE BARNARD [facility] [address] [place] [address] * HELICOBACTER PYLORI UREA BREATH TEST (12/03/2021 3:56 PM CDT) Helicobacter pylori Breath Negative Negative [facility] INSURANCE BILL Microbiology BREATH / Unknown 12/03/2021 3:56 PM CDT 12/03/2021 Narrative Resulting Agency Comment Lab Testing performed at: [facility] [place] [address] [facility] [address] ??[facility] [phone] Karin Delvalle APRN-RING ROLLING MACHINE OPERATOR LAB - MICROB IOLOGY ORDERABLES Performing Organization Address [facility] Co de Phone Number [facility] INSURANCE BILL [address] [place] [address] * (ABNORMAL) HELICOBACTER PYLORI UREASE (STL) (10/29/2021 8:08 AM CDT) Helicobacter pylori Urease Initial Negative Negative 10/30/2021 9:10 AM CDT [facility] Helicobacter pylori Urease Final Positive(A) Negative 10/30/2021 9:10 AM CDT [facility] Comment:This is an appended report. These results have been appended to a previously preliminary verified report. Microbiology GASTRIC ANTRAL BIOPSY SPECIMEN / Unknown 10/29/2021 8:08 AM CDT 10/29/2021 11:13 AM CDT Devante Tracey MD LAB - MICROBIOLOGY O RDERABLES [facility] [address] [facility] [place] [address] * EGD (10/29/2021 7:45 AM CDT) Report Endoscopy POC _ Patient Name: Justyna Angulo ? Procedure Date: 10/29/2021 7:45 AM ? Date of : 1965 ?Admit Type: Outpatient Age: 56 ? Gender: Female Attending MD: Devante Tracey MD ? _ Procedure: ? Upper GI endoscopy Indications: ? Assessment following Kym-en-Y gastrojejunostomy Providers: ? Devante Tracey MD (Doctor) Referring MD: ?Lesli Willis MD (Referring MD) Medicines: ? Propofol per Anesthesia Complications: ? No immediate complications. _ Estimated Blood Loss: ? Estimated blood loss: none. Procedure: ? Pre-Anesthesia Assessment: ? - Prior to the procedure, a History and Physical was ? performed, and patient medications and allergies were ? reviewed. The patient's tolerance of previous ? anesthesia was also reviewed. The risks and benefits ? of the procedure and the sedation options and risks ? were discussed with the patient. All questions were ? answered, and informed consent was obtained. Prior ? Anticoagulants: The patient has taken no previous ? anticoagulant or antiplatelet agents. ASA Grade ? Assessment: II - A patient with mild systemic disease. ? After reviewing the risks and benefits, the patient ? was deemed in satisfactory condition to undergo the ? procedure. ? After obtaining informed consent, the endoscope was ? passed under direct vision. Throughout the procedure, ? the patient's blood pressure, pulse, and oxygen ? saturations were monitored continuously. The Endoscope ? was introduced through the mouth, and advanced to the ? jejunum. The upper GI endoscopy was accomplished ? without difficulty. The patient tolerated the ? procedure well. ? Findings: ? The examined esophagus was normal. ? Evidence of a gastric bypass was found. A gastric pouch with a 4.5 cm ? length from the GE junction to the gastrojejunal anastomosis was found ? containing mildly erosive changes, mild rotation. The staple line ? appeared intact. The gastrojejunal anastomosis was characterized by ? healthy appearing mucosa dilated stoma 20mm. This was traversed. ? Biopsies were taken with a cold forceps for Helicobacter pylori testing ? using CLOtest. ? The examined jejunum was normal. _ ? Impression: ?- Normal esophagus. ? - Gastric bypass with a pouch 4.5 cm in length and ? intact staple line. Gastrojejunal anastomosis ? characterized by healthy appearing mucosa dilated ? stoma 20mm. Biopsied. ? - Normal examined jejunum. Recommendation: ?- Await pathology results. ? - Discharge patient to home. ? - Resume previous diet. ? Procedure Code(s): ? --- Professional --- ? 31578, Esophagogastroduoden oscopy, flexible, transoral; with biopsy, ? single or multiple ? --- Technical --- ? 80648, Esophagogastroduoden oscopy, flexible, transoral; with biopsy, ? single or multiple Diagnosis Code(s): ? --- Professional --- ? Z09, Encounter for follow-up examination after completed treatment for ? conditions other than malignant neoplasm ? Z98.0, Intestinal bypass and anastomosis status ? --- Technical --- ? Z09, Encounter for follow-up examination after completed treatment for ? conditions other than malignant neoplasm ? Z98.0, Intestinal bypass and anastomosis status CPT copyright 2019 [employer]. All rights reserved. The codes documented in this report are preliminary and upon hydramatic specialist review may be revised to meet current compliance requirements. Devante Tracey MD 10/29/2021 8:13:15 AM Number of Addenda: 0 Note Initiated On: 10/29/2021 7:45 AM [facility] 10/29/2021 7:45 AM CDT Narrative Procedure Note Devante Tracey MD - 10/29/2021 8:14 AM CDT PLAN: - f/u PAULA biopsy results - No follow up post procedure office appointment necessary, continue withpreoperative plan - schedule for LLRYGB and stoma reduction Devante Tracey MD Devante Tracey MD GI PROCEDURE ORDERAB LES [facility] [place] [place] [address] * CARDIAC EKG ORDER (01/12/2018 3:09 PM MAILER APPRENTICE) Only the most recent of2 resultswithin the time period is included. Narrative 01/12/2018 3:09 PM MAILER APPRENTICE Ordered by an unspecified provider. Scanned Document CARDIAC SERVICES ORD ERABLES * STONE ANALYSIS QUANT (07/11/2017 1:39 PM CDT) Color Brown 07/27/2017 12:15 PM CDT [facility] ([facility]) Size Comment mm 07/27/2017 12:15 PM CDT [facility] ([facility]) Comment:Specimen received as fragments. Weight 65.0 mg 07/27/2017 12:15 PM CDT [facility] ([facility]) Composition Comment 07/27/2017 12:15 PM CDT [facility] ([facility]) Comment:Percentage (Represen ts the % composition) Calcium Oxalate Monohydrate 95 % 07/27/2017 12:15 PM CDT [facility] ([facility]) Calcium phosphate 05 % 018 12:15 PM CDT [facility] ([facility]) Nidus No Nidus visualized 07/27/2017 12:15 PM CDT [facility] ([facility]) Comment Note: 07/27/2017 12:15 PM CDT [facility] ([facility]) Comment: Please do not submit specimens on Q-Tips, in tape, on filters, or in liquids such as blood, urine or formalin. ??This may cause unnecessary biohazards, erroneous results and/or delay in the processing of the specimen. Blood was observed on exterior of specimen. Please Note Comment 07/27/2017 12:15 PM CDT [facility] ([facility]) Comment: Calculi report without photograph will follow via computer, mail, or assistant construction superintendent delivery. Comment Comment 07/27/2017 12:15 PM CDT [facility] ([facility]) Comment: Physician questions regarding Calculi Analysis contact [facility] at: [phone]. Disclaimer Comment 07/27/2017 12:15 PM CDT [facility] ([facility]) Comment: This test was developed and its performance characteristics [facility]. It has not been cleared or approved by the Food and Drug Administration. Pathology/Cytolo gy CALCULUS SPECIMEN / Unknown Collection / Unknown 07/11/2017 1:39 PM CDT 07/19/2017 10:10 AM CDT Narrative [facility] ([facility]) - 07/27/2017 12:15 PM CDT Performed at: ??01 - [address] ??[id number] Offset Label Rewinder: Sebastian Green MD, Phone: ??[phone] Aleksander Marino MD LAB - URINE STOREKEEPER ENGINEERING RY ORDERABLES [facility]) [address] [place] [address], [facility] * PATHOLOGY TISSUE (07/11/2017 1:27 PM CDT) Case Report Surgical Pathology Report ? Case: [id number] ? Authorizing Provider: ??Aleksander Marino MD ? Collected: ? 07/11/2017 01:27 PM ? Ordering Location: ? [facility] ? Received: ?07/11/2017 03:25 PM ? Pathologist: ? Deena Guerrero MD ? Specimen: ?Calculus, left ureteral stone ? 07/12/2017 11:59 AM CDT [facility] Final Diagnosis Kidney, calculus , extraction: - For gross and chemical analysis only 07/12/2017 11:59 AM [facility] Clinical History 52-year-old woman who underwent cystoscopy and left ureteroscopy for kidney stones. 07/12/2017 11:59 AM CDT [facility] Gross Description The specimen is received fresh in one container labeled with the patient's name, Forlisaed Angulo and calculus and consists of multiple portions of hard red-brown stones with an aggregate measurement of 0.6 x 0.5 x 0.3 cm, and ranging in greatest dimension from 0.1 to 0.5 cm. The specimen is submitted for chemical analysis. TF/cmb 07/12/2017 11:59 AM CDT [facility] Disclaimer The performance characteristics of all immunohistochemical and indirect immunofluorescence stains (if any) cited in this report were determined by the [facility] of [facility]. Some of these tests were developed by our own laboratory and have not been cleared or approved by the US Food and Drug Administration. The FDA does not require this test to go through premarket FDA review. These tests are used for clinical purposes. They should not be regarded as investigational or for research. This laboratory is certified under the Clinical Laboratory Improvement Amendments (CLIA) as qualified to perform high complexity clinical laboratory testing. This case has been personally reviewed and interpreted by the attending (teaching) pathologist. 07/12/2017 11:59 AM CDT [facility] Embedded Images 07/12/2017 11:59 AM CDT [facility] Gross only CALCULUS SPECIMEN / Unknown 07/11/2017 1:27 PM CDT 07/11/2017 3:25 PM CDT Aleksander Cailin Marino MD LAB - PATHOLOGY/CYT OLOGY ORDERABLES Performing Organization Address [facility]/ZIP Co de Phone Number [facility] [address] [phone] * [place] OKMAL SURGERY (07/11/2017 1:00 PM CDT) Narrative [facility] - 07/11/2017 2:25 PM CDT Fluoroscopy was used for this exam in the OR. Please see the Operative report. Aleksander Cailin Marino MD FLUOROSCOPY ORDERAB LES [facility] * POTASSIUM (EPOC) CHARLES - POCT (07/11/2017 10:13 AM CDT) EPOC Potassium 4.0 3.5 - 4.5 mmol/L 07/11/2017 10:16 AM CDT [facility] Specimen Type Venous 07/11/2017 10:16 AM CDT [facility] Blood 07/11/2017 10:1 3 AM CDT 07/11/2017 10:16 AM CDT Narrative [facility] - 07/11/2017 10:16 AM CDT Family Practice Md: CATA ??HARINDER Aleksander Marino MD LAB - POINT OF CARE ORDERABLES [address] [phone] * LAB RESULTS ORDER (07/07/2017 7:08 AM CDT) Narrative 07/07/2017 7:08 AM CDT Ordered by an unspecified provider. Scanned Document LAB - THERAPEUTIC DR UG MONITORING ORDERABLES * XR ABDOMEN KUB (06/23/2017 12:06 PM CDT) Only the most recent of3 resultswithin the time period is included. Anatomical Region Laterality Modality Abdomen Radiographic Chantel ging 06/23/2017 1:36 PM CDT Impressions 06/23/2017 3:48 PM CDT IMPRESSION: Left renal calculi. Bowel gas and feces greatly limit the study for evaluation of calculi. Nonobstructive bowel gas pattern. Dictated by Alfonso Ma MD (executive vice president). I, Dr. MARYCHUY SWIFT M.D. have personally reviewed and interpreted this examination/study. This report was electronically signed by MARYCHUY SWIFT M.D. ??on 06/23/2017 3:48 PM . Narrative 06/23/2017 3:48 PM CDT EXAMINATION: XR ABDOMEN KUB HISTORY: N20.0: Renal stones COMPARISON: No prior study is available for comparison. FINDINGS: Surgical clips are seen in the right upper quadrant. A double-J stent is seen on the left. No abnormally dilated loops of bowel are identified. Abdominal calcifications suggestive of nephrolithiasis are seen. Several calcific densities overlying the left renal silhouette are noted, the largest measures approximately 1.2 cm, these likely represent left renal stones as provided in the history. The visible osseous structures are intact. The lung bases are not well-visualized. Procedure Note Marychuy Swift MD - 06/23/2017 EXAMINATION: XR ABDOMEN KUB HISTORY: N20.0: Renal stones COMPARISON: No prior study is available for comparison. FINDINGS: Surgical clips are seen in the right upper quadrant. A double-J stent is seen on the left. No abnormally dilated loops of bowel are identified. Abdominal calcifications suggestive of nephrolithiasis are seen. Several calcific densities overlying the left renal silhouette are noted, the largest measures approximately 1.2 cm, these likely represent left renal stonesas provided in the history. The visible osseous structures are intact. The lung bases are not well-visualized. IMPRESSION: Left renal calculi. Bowel gas and feces greatly limit the study for evaluation of calculi. Nonobstructive bowel gas pattern. Dictated by Alfonso Ma MD (executive vice president). I, Dr. MARYCHUY SWIFT M.D. have personally reviewed and interpreted this examination/study. This report was electronically signed by MARYCHUY SWIFT M.D. on 06/23/2017 3:48 PM . Aleksander Cailin Marino MD DIAGNOSTIC IMAGING ORDERABLES * URINALYSIS AUTO - POINT OF CARE (AMB) [facility] (05/10/2017) Only the most recent of2 resultswithin the time period is included. Glucose UA neg [facility] Bilirubin UA POCT neg [facility] Ketones UA POCT neg [facility] Specific [place] UA 1.015 [facility] Blood Urine POCT 3+ [facility] pH UA 7.0 [facility] Protein UA + [facility] Urobilinogen UA neg [facility] Nitrite UA neg [facility] WBC UA + [facility] Urine specimen (specimen) 05/10/2017 Aleksander Cailin Marino MD LAB - POINT OF CARE ORDERABLES [facility] [address] * CULTURE URINE (05/10/2017 12:00 AM CDT) Only the most recent of2 resultswithin the time period is included. Urine Culture Routine Final report [facility] ([facility]) Result 1 [facility] ([facility]) Comment: Mixed urogenital deborah 25,000-50,000 colony forming units per mL 05/10/2017 05/10/2017 Narrative [facility] ([facility]) - 05/12/2017 6:18 AM CDT Performed at: ?? - [facility] [address] [place], [place] ??[id number] Offset Label Rewinder: Sandor Pham PhD, Phone: ??[phone] Aleksander Cailin Marino MD LAB - MICROBIOLOGY ORDERABLES [facility] [address] [place] [address], [facility] * CT ABDOMEN PELVIS WO CONTRAST (03/23/2017 1:12 PM MAILER APPRENTICE) Anatomical Region Laterality Modality Abdomen, Pelvis Computed Tomogra phy 03/23/2017 1:15 PM MAILER APPRENTICE Impressions 03/23/2017 1:25 PM MAILER APPRENTICE 1. Calculus in the left renal pelvis with hydronephrosis. However the calculus does not appear to be trapped in the UPJ. No additional renal stones. 2. Other incidental findings as described. Narrative 03/23/2017 1:[address] abdomen and pelvis, noncontrast DATE: 03/23/2017. INDICATION: Renal calculus, left flank pain and hematuria. TECHNIQUE: Multidetector nonenhanced CT through the abdomen and pelvis utilizing a stone protocol. Triplanar reformations. Comparisons: None. Findings: Scattered scars in the lung bases. The lung bases are otherwise clear. A calculus in the left renal pelvis measures 1.3 x 1.0 x 1.0 cm. The left renal pelvis is enlarged and there is fatty stranding around the renal pelvis but not around the more lateral portions of the kidneys. The renal calyces are enlarged. The left ureter is normal in size. The right kidney and ureter are normal. Chronic gastric postoperative changes consistent with gastric bypass. The small bowel anastomosis is patent. The gallbladder is surgically absent. Within the limits of nonenhanced study the liver, spleen, pancreas and adrenal glands are normal. Retroperitoneal lymph nodes are small. Scattered distal colonic diverticula are not enlarged. Stool is increased in the rectum measuring up to 6.6 cm but without wall thickening or evidence of mechanical obstruction. The uterus is surgically absent. There is no free fluid or mesenteric edema. The L5 and S1 vertebral bodies are fused by bone. Procedure Note Lucrecia Arambula MD - 03/23/2017 CT abdomen and pelvis, noncontrast DATE: 03/23/2017. INDICATION: Renal calculus, left flank pain and hematuria. TECHNIQUE: Multidetector nonenhanced CT through the abdomen and pelvis utilizing a stone protocol. Triplanar reformations. Comparisons: None. Findings: Scattered scars in the lung bases. The lung bases are otherwise clear. A calculus in the left renal pelvis measures 1.3 x 1.0 x 1.0 cm. The left renal pelvis is enlarged and there is fatty stranding around the renal pelvis but not around the more lateral portions of the kidneys. The renal calyces are enlarged. The left ureter is normal in size. The right kidney and ureter are normal. Chronic gastric postoperative changes consistent with gastric bypass. The small bowel anastomosis is patent. The gallbladder is surgically absent. Within the limits of nonenhanced study the liver, spleen, pancreas and adrenal glands are normal. Retroperitoneal lymph nodes are small. Scattered distal colonic diverticula are not enlarged. Stool is increased in the rectum measuring up to 6.6 cm but without wall thickening or evidence of mechanical obstruction. The uterus is surgically absent. There is no free fluid or mesenteric edema. The L5 and S1 vertebral bodies are fused by bone. IMPRESSION 1. Calculus in the left renal pelvis with hydronephrosis. However the calculus does not appear to be trapped in the UPJ. No additional renal stones. 2. Other incidental findings as described. Aleksander Marino MD CT ORDERABLES * REF LAB-PLEASE NOTE (03/15/2017 12:00 AM MAILER APPRENTICE) Please Note [facility] ([facility]) Comment: The date and/or time of collection was not indicated on the requisition as required by state and federal law. ??The date of receipt of the specimen was used as the collection date if not supplied. 03/15/2017 03/15/2017 Narrative [facility] ([facility]) - 03/17/2017 6:16 AM MAILER APPRENTICE Performed at: ??01 - [facility] [place] [id number] [place], [place] ??[id number] Offset Label Rewinder: Sandor Pham PhD, Phone: ??[phone] Aleksander Marino MD LAB - CHEMISTRY ORD ERABLES Performing Organization Address City/[facility]/ZIP Co de Phone Number [facility] ([facility]) [address] [place] [address] * LAB HISTORICAL RESULTS-ONBASE (11/05/2015) 11/05/2015 Historical Provider LAB - CHEMISTRY O RDERABLES [place] [id number] Care Teams Mail Caller Relationship Specialty Start Date End Date Lesli Willis MD [address] [place] [address] PCP - General Internal Medicine 03/17/17 Olinda Bermudez, RN 06/09/17
--- OUTSIDE RECORDS SUMMARY | 2024-03-29 13:43 | XMS_ITS | Referral Summary ---
Author Organization [facility] Address [address] [place] [address] Care Team Providers Care Sheet Metal Installer Name Role Phone Lesli Willis MD Primary Care Provider [phone] Olinda Bermudez RN Unavailable Unavailabl e Source Comments [facility],non-owned Affiliates and Associated Physician Practices is amultiple site organization consisting of ambulatory clinics and hospital sitesin [place], [place], [place] and [place]. This disclosure is being madepursuant to the Care Everywhere program and may not contain all information available regarding this patient. Last updated 17.[facility] Allergies Active Allergy Reactions Criticality Noted Date Comments Ampicillin Itching Low 06/18/2015 Aspirin Other Low 03/15/2017 Stomach pain Codeine Anaphylaxis High 06/18/2015 Medications * Be aware that medications may not be up to date on this document. Alwaysverify current medications with the patient. Medication Sig Dispensed Refills Start Date End Date Status metoprolol succinate XL 24hr (TOPROL XL) 100 MG tablet Take 1 (one) tablet by mouth DAILY 03/15/2017 Active albuterol HFA (PROAIR HFA) 108 (90 BASE) MCG/ACT inhaler Inhale 2 (two) puffs by mouth every 6 hours as needed for Shortness of Breath or Cough 11/03/2015 Active Iron-Vitamin C (IRON 100/C PO) Take 1 tablet by mouth once daily 100 mg iron 75 mg vitamin c per talbet Active amLODIPine (NORVASC) 10 MG tablet Take 1 (one) tablet by mouth once daily 08/04/2017 Active budesonide-formoter ol (SYMBICORT) 160-4.5 MCG/ACT inhaler Inhale 2 (two) puffs by mouth 2 times daily 03/03/2020 Active gabapentin (NEURONTIN) 600 MG tablet Take 1 (one) tablet by mouth at bedtime 06/21/2021 Active tiZANidine (Zanaflex) 4 MG tablet Take 1 (one) tablet by mouth once daily as needed 12/12/2021 Active losartan (Cozaar) 100 MG tablet Take 1 (one) tablet by mouth once daily Active omeprazole (PriLOSEC) 20 MG capsule TAKE 1 CAPSULE BY MOUTH EVERY DAY BEFORE BREAKFAST 90 capsule 1 10/25/2023 Active Active Problems Problem Noted Date Diagnosed Date Bariatric surgery status 01/05/2022 Pre-op testing 06/09/2017 Thyrotoxicosis without thyroid storm 06/18/2015 Immunizations Name Administration Dates Next Due FLU VACCINE QUAD IIV4 SPLIT 0.25 ML IM 8 HEP B VACCINE, ADULT 3 DOSE 04/17/2007 INFLUENZA VACCINE, QUADR. (F LUZONE; FLULAVAL; FLUARIX; AFLURIA QUADRIVALENT; 6MO+), 0.5 ML (IIV4) 12/10/2021,03/03/2020 Social History Tobacco Use Types Packs/Day Years [...] Comments Blood Pressure 131/84 01/06/2023 10:13 AM FERTILIZER LOADER Pulse 55 01/06/2023 10:13 AM FERTILIZER LOADER Temperature 36.3 ??C (97.4 ??F) 01/06/2023 10:[address] Respiratory Rate 18 02/04/2022 8:34 AM FERTILIZER LOADER Oxygen Saturation 99% 01/06/2023 10:13 AM FERTILIZER LOADER Inhaled Oxygen Concentration - - Weight 87.6 kg (193 lb 3.2 oz) 01/06/2023 10:13 AM FERTILIZER LOADER Height 162.6 cm (5' 4 ) 01/06/2023 10:13 AM FERTILIZER LOADER Body Mass Index 33.16 01/06/2023 10:13 AM FERTILIZER LOADER Functional Status Functional Status Response Date of Assess ment Is person deaf or have serious hearing difficult y? No 01/05/2022 Is person blind or have serious difficulty seein g? No 01/05/2022 Does person have serious dif ficulty walking/climbing stairs? No 01/05/2022 Does person have difficulty dressing/bathing? No 01/05/2022 Does person have difficulty doing errands alone? No 01/05/2022 Cognitive Status Response Date of Assessm ent Does person have difficulty concentrating/remembering/making decisions? No 01/05/2022 Plan of Treatment Not on file Medical Devices Implanted Type Area Senior Support Analyst Device Identifier Shelf Expiration Date Model / Serial / Lot Stent Uret 6fr 26cm Pstnr Brd Teth Implanted:Qty: 1 on 06/09/2017 by Aleksander Marino MD at [facility] Left: [employer] 01/24/2021 [id number] / / Stent Uret 6fr 26cm Pgtl Crv Tpr Tip Implanted:Qty: 1 on 07/11/2017 by Aleksander Marino MD at [facility] [employer] 12/23/2019 [id number] / / [id number] Explanted Type Area Senior Support Analyst Device Identifier Shelf Expiration Date Model / Serial / Lot Stent Uret 6fr 24cm Pgtl Crv Tpr Tip Implanted:Qty: 1 Explanted:Qty: 1 on 06/09/2017 at [facility] Left: Ureter [employer] 04/11/2020 [id number] / / Procedures Procedure Name Priority Date/Time Associated Diagnosis Comments COMPREHENSIVE METABOLIC PANEL Routine 01/06/2023 12:41 PM FERTILIZER LOADER Morbid obesity (HCC) Bariatric surgery status Vitamin deficiency Vitamin D deficiency Postsurgical malabsorption (HCC) from Last 3 Months or Most Recently Relevant to Health Maintenance Results * COMPREHENSIVE METABOLIC PANEL (01/06/2023 12:41 PM FERTILIZER LOADER) Glucose 85 70 - 99 mg/dL [facility] [...] BLOOD SPECIMEN / Unknown 01/06/2023 12:41 PM FERTILIZER LOADER 01/06/2023 Narrative Resulting Agency Comment Lab Testing performed at: [facility] [place] [address] [facility] ??[facility] [id number] Karin Delvalle APRN-PADMINI LAB - CHEMIS TRY ORDERABLES [facility] INSURANCE BILL [address] [place] [address] from Last 3 Months or Most Recently Relevant to Health Maintenance Advance Directives * Full Code (Latest Code Status on File) Date Activated Date Inactivated Comments 01/05/2022 2:15 PM 01/07/2022 4:22 PM * Full Code Date Activated Date Inactivated Comments 07/11/2017 9:40 AM 07/11/2017 6:36 PM Care Teams Sheet Metal Installer Relationship Specialty Start Date End Date Lesli Willis MD [address] [place] [address] PCP - General Internal Medicine 03/17/17 Olinda Bermudez, RN 06/09/17
--- OUTSIDE RECORDS SUMMARY | 2024-03-29 13:43 | XMS_ITS | CONTINUITY OF CARE DOCUMENT ---
Author Name flores tanner Address Unknown Organization [facility] Address [address] [place] [address] Phone [phone] Care Team Providers Care Emergency Response Officer Name Role Phone Chris VIEYRA, Kailash Unavailable LILIANE NOWAK MD Unavailable [phone] LILIANE NOWAK MD Unavailable PROBLEMS Condition Status Date Provider Notes Bradycardia active Johanna Orellana INSURANCE PROVIDERS Payer name Policy type / Coverage type [employer] party ID [employer] Medicaid 0 [id number] [facility] COMPLETE CARE [id number] (PPO C-SNP) Commercial insurance company [id number] TREATMENT PLAN Date Name Complete Echo
--- OUTSIDE RECORDS SUMMARY | 2024-03-29 13:43 | XMS_ITS | Encounter Summary ---
Author Organization [facility] Facility Care Team Providers Care Street Cleaning Equipment Operator Name Role Phone Unknown, Notinfile Primary Care Provider Unavail able Lesli Willis MD Primary Care Provider [phone] Unknown, Notinfile Unavailable Unavailable Carly Woods MD Primary Care Provider Encounter Details Date Type Department Care Team (Latest Contact Info) Description 06/14/2017 Orders Only [facility] CLINCONV ProviderJune MD [address] [place] [address] Social History Tobacco Use Types Packs/Day Years Used Date Smoking Tobacco: Never Assessed Comments Unknown Sex and Gender Information Value Date Recorded Sex Assigned at Not on file Legal Sex Female 6:28 AM TUBE DRAWING SUPERVISOR Gender Identity Not on file Sexual Orientation Not on file documented as of this encounter Plan of Treatment Not on file documented as of this encounter Procedures Procedure Name Priority Date/Time Associated Diagnosis Comments PROCEDURE - RESULT 06/14/2017 12 :00 AM CDT documented in this encounter Results * PROCEDURE - RESULT (06/14/2017 12:00 AM CDT) Narrative 06/14/2017 12:00 AM CDT Ordered by an unspecified provider. Historical Provider Final Res ult documented in this encounter Visit Diagnoses Not on filedocumented in this encounter Care Teams Street Cleaning Equipment Operator Relationship Specialty Start Date End Date Unknown, Notinfestephania PCP - General 02/12/18 06/20/18 Lesli Willis MD [address] [place], [place] [address]E [address] [place] [address] PCP - General Internal Medicine 06/21/18 09/11/23 Carly Woods MD [address] [facility] [address] [place] [address] PCP - General Internal Medicine 09/12/23 Unknown, Notinfile 06/21/18 documented as of this encounter
--- OUTSIDE RECORDS SUMMARY | 2024-03-29 13:43 | XMS_ITS | Encounter Summary ---
Author Organization [facility] Facility Care Team Providers Care Grouter Helper Name Role Phone Unknown, Notinfile Primary Care Provider Unavail able Lesli Willis MD Primary Care Provider [phone] Unknown, Notinfile Unavailable Unavailable Carly Woods MD Primary Care Provider Encounter Details Date Type Department Care Team (Latest Contact Info) Description 09/06/2012 Orders Only [facility] CLINCONV ProviderJune MD [address] [place] [address] Social History Tobacco Use Types Packs/Day Years Used Date Smoking Tobacco: Never Assessed Comments Unknown Sex and Gender Information Value Date Recorded Sex Assigned at Not on file Legal Sex Female 6:28 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 Historical Provider [facility] DANILO MELVIN Final Result documented in this encounter Visit Diagnoses Not on filedocumented in this encounter Care Teams Grouter Helper Relationship Specialty Start Date End Date Unknown, Notinfile PCP - General 02/12/18 06/20/18 Lesli Willis MD [address] [facility] 1 [place] [address] PCP - General Internal Medicine 06/21/18 09/11/23 Carly Woods MD [address] [facility] [address] [place] [address] PCP - General Internal Medicine 09/12/23 Unknown, Notinfile 06/21/18 documented as of this encounter
--- OUTSIDE RECORDS SUMMARY | 2024-03-29 13:43 | XMS_ITS | Encounter Summary ---
Author Organization [facility] Facility Care Team Providers Care Artificial Teeth Inspector Name Role Phone Unknown, Notinfile Primary Care Provider Unavail able Lesli Willis MD Primary Care Provider [phone] Unknown, Notinfile Unavailable Unavailable Carly Woods MD Primary Care Provider Encounter Details Date Type Department Care Team (Latest Contact Info) Description 03/06/2016 Orders Only [facility] CLINCONV ProviderJune MD [address] [place] [address] Social History Tobacco Use Types Packs/Day Years Used Date Smoking Tobacco: Never Assessed Comments Unknown Sex and Gender Information Value Date Recorded Sex Assigned at Not on file Legal Sex Female 6:28 AM AUTISM TUTOR Gender Identity Not on file Sexual Orientation Not on file documented as of this encounter Plan of Treatment Not on file documented as of this encounter Procedures Procedure Name Priority Date/Time Associated Diagnosis Comments SCAN - LABS 05/06/2016 12:00 AM AUTISM TUTOR documented in this encounter Results * SCAN - LABS (05/06/2016 12:00 AM AUTISM TUTOR) Narrative 05/06/2016 12:00 AM AUTISM TUTOR Ordered by an unspecified provider. Historical Provider Final Res ult documented in this encounter Visit Diagnoses Not on filedocumented in this encounter Care Teams Artificial Teeth Inspector Relationship Specialty Start Date End Date Unknown, Notinfile PCP - General 02/12/18 06/20/18 Lesli Willis MD [address] [place] [address] 1 [place] [address] PCP - General Internal Medicine 06/21/18 09/11/23 Carly Woods MD [address] [facility] [address] [place] [address] PCP - General Internal Medicine 09/12/23 Unknown, Notinfile 06/21/18 documented as of this encounter
--- OUTSIDE RECORDS SUMMARY | 2024-03-29 13:43 | XMS_ITS | Encounter Summary ---
Author Organization [facility] Facility Care Team Providers Care Store Detective Name Role Phone Unknown, Notinfile Primary Care Provider Unavail able Lesli Willis MD Primary Care Provider [phone] Unknown, Notinfile Unavailable Unavailable Carly Woods MD Primary Care Provider Encounter Details Date Type Department Care Team (Latest Contact Info) Description 05/08/2014 Orders Only [facility] CLINCONV ProviderJune MD [address] [place] [address] Social History Tobacco Use Types Packs/Day Years Used Date Smoking Tobacco: Never Assessed Comments Unknown Sex and Gender Information Value Date Recorded Sex Assigned at Not on file Legal Sex Female 6:28 AM SYSTEM SALES CONSULTANT Gender Identity Not on file Sexual Orientation Not on file documented as of this encounter Plan of Treatment Not on file documented as of this encounter Procedures Procedure Name Priority Date/Time Associated Diagnosis Comments SCAN - LABS 05/08/2014 12:00 AM CDT documented in this encounter Results * SCAN - LABS (05/08/2014 12:00 AM CDT) Narrative 05/08/2014 12:00 AM CDT Ordered by an unspecified provider. Historical Provider Final Res ult documented in this encounter Visit Diagnoses Not on filedocumented in this encounter Care Teams Store Detective Relationship Specialty Start Date End Date Unknown, Notinfile PCP - General 02/12/18 06/20/18 Lesli Willis MD [address] [place], [place] [address]E [address] [place] [address] PCP - General Internal Medicine 06/21/18 09/11/23 Carly Woods MD [address] [facility] [address] [place] [address] PCP - General Internal Medicine 09/12/23 Unknown, Notinfile 06/21/18 documented as of this encounter
--- OUTSIDE RECORDS SUMMARY | 2024-03-29 13:43 | XMS_ITS | Clinical Summary ---
Author Organization [facility] Address [address] [place] [address] Care Team Providers Care Plaster Mechanic Name Role Phone Lesli Willis MD Primary Care Provider [phone] Olinda Bermudez RN Unavailable Unavailabl e Source Comments [facility],non-owned Affiliates and Associated Physician Practices is amultiple site organization consisting of ambulatory clinics and hospital sitesin [place], [place], [place] and [place]. This disclosure is being madepursuant to the Care Everywhere program and may not contain all information available regarding this patient. Last updated 17.[facility] Allergies Active Allergy Reactions Criticality Noted Date [...] AFLURIA QUADRIVALENT; 6MO+), 0.5 ML (IIV4) 12/10/2021,03/03/2020 Family History Medical History Relation Name Comments Heart Disease Brother Heart Disease Father Hypertension Mother Hypertension Sister Asthma Son Relation Name Status Comments Brother Father Mother Sister Son Social History Tobacco Use Types Packs/Day Years [...] Comments Blood Pressure 131/84 01/06/2023 10:13 AM EXPLOSIVE ORDNANCE MANAGER Pulse 55 01/06/2023 10:13 AM EXPLOSIVE ORDNANCE MANAGER Temperature 36.3 ??C (97.4 ??F) 01/06/2023 10:[address] Respiratory Rate 18 02/04/2022 8:34 AM EXPLOSIVE ORDNANCE MANAGER Oxygen Saturation 99% 01/06/2023 10:13 AM EXPLOSIVE ORDNANCE MANAGER Inhaled Oxygen Concentration - - Weight 87.6 kg (193 lb 3.2 oz) 01/06/2023 10:13 AM EXPLOSIVE ORDNANCE MANAGER Height 162.6 cm (5' 4 ) 01/06/2023 10:13 AM EXPLOSIVE ORDNANCE MANAGER Body Mass Index 33.16 01/06/2023 10:13 AM EXPLOSIVE ORDNANCE MANAGER Plan of Treatment Health Maintenance Due Date Last Done Comments COLOGUARD (AGES 45-75) - COLON CA SCREENING 1963 COLON MONITORING 1963 COLONOSCOPY - COLON CA SCREENING 1963 CT COLONOGRAPHY - COLON CA SCREENING 1963 Colorectal Cancer Screening 1963 FIT - COLON CA SCREENING 1963 FLEX SIG - COLON CA SCREENING 1963 LIPID TESTING 1963 MAMMOGRAM 1963 MEDICARE AWV ? 12 MONTHS 1963 PAP SMEAR 1963 HIV SCREENING 1978 HEPATITIS C SCREENING 04/03/1981 DTAP/TDAP/TD VACCINES (1 - Tdap) 1982 HEPATITIS B VACCINE (2 of 3 - 19+ 3-dose series) 05/15/2007 04/17/2007 PNEUMOCOCCAL VACCINE 50+ (1 of 1 - PCV) 2013 ZOSTER VACCINE (1 of 2) 2013 COVID-19 VACCINE (3 - season) 2023 06/11/2020, 05/14/2020 INFLUENZA VACCINE (#1) 2023 2, 12/14/2020, 03/03/2020, Additional history exists DEPRESSION SCREENING 02/28/2024 SCREENING FOR DIABETES 01/06/2026 3, 08/05/2022, 04/28/2022, Additional history exists Respiratory Syncytial Virus (RSV) Vaccine Pt: or over 60 yrs (1 - 1-dose 75+ series) 2038 HIB VACCINE Aged Out No longer eligi ble based on patient's age to complete this topic HPV VACCINE Aged Out No longer eligi ble based on patient's age to complete this topic MENINGOCOCCAL (Group B) VACCINE Aged Out No longer eligible based on patient's age to complete this topic MENINGOCOCCAL VACCINE Aged Out No shai saqib eligible based on patient's age to complete this topic Medical Devices Implanted Type Area Breast Buffer Device Identifier Shelf Expiration Date Model / Serial / Lot Stent Uret 6fr 26cm Pstnr Brd Teth Implanted:Qty: 1 on 06/09/2017 by Aleksander Marino MD at [facility] Left: [employer] 01/24/2021 [id number] / / Stent Uret 6fr 26cm Pgtl Crv Tpr Tip Implanted:Qty: 1 on 07/11/2017 by Aleksander Marino MD at [facility] [employer] 12/23/2019 [id number] / / [id number] Explanted Type Area Breast Buffer Device Identifier Shelf Expiration Date Model / Serial / Lot Stent Uret 6fr 24cm Pgtl Crv Tpr Tip Implanted:Qty: 1 Explanted:Qty: 1 on 06/09/2017 at [facility] Left: [employer] [place] [employer] 04/11/2020 [id number] / / Procedures Procedure Name Priority Date/Time Associated Diagnosis Comments COMPREHENSIVE METABOLIC PANEL Routine 01/06/2023 12:41 PM EXPLOSIVE ORDNANCE MANAGER Morbid obesity (HCC) Bariatric surgery status Vitamin deficiency Vitamin D deficiency Postsurgical malabsorption (HCC) from Last 3 Months or Most Recently Relevant to Health Maintenance Results * COMPREHENSIVE METABOLIC PANEL (01/06/2023 12:41 PM EXPLOSIVE ORDNANCE MANAGER) Glucose 85 70 - 99 mg/dL [facility] [...] BLOOD SPECIMEN / Unknown 01/06/2023 12:41 PM EXPLOSIVE ORDNANCE MANAGER 01/06/2023 Narrative Resulting Agency Comment Lab Testing performed at: [facility] ??[facility] [id number] Karin Delvalle AUTO GARAGE ATTENDANT-[facility] - CHEMIS TRY ORDERABLES [facility] INSURANCE BILL [address] [place] [address] from Last 3 Months or Most Recently Relevant to Health Maintenance Advance Directives * Full Code (Latest Code Status on File) Date Activated Date Inactivated Comments 01/05/2022 2:15 PM 01/07/2022 4:22 PM * Full Code Date Activated Date Inactivated Comments 07/11/2017 9:40 AM 07/11/2017 6:36 PM Care Teams Plaster Mechanic Relationship Specialty Start Date End Date Lesli Willis MD [address] [place] [id number] PCP - General Internal Medicine 03/17/17 Olinda Bermudez, RN 06/09/17
--- OUTSIDE RECORDS SUMMARY | 2024-03-29 13:43 | XMS_ITS | Encounter Summary ---
Author Organization [facility] Facility Care Team Providers Care Heel Brusher Name Role Phone Unknown, Notinfile Primary Care Provider Unavail able Lesli Willis MD Primary Care Provider [phone] Unknown, Notinfile Unavailable Unavailable Carly Woods MD Primary Care Provider Encounter Details Date Type Department Care Team (Latest Contact Info) Description 06/13/2017 Orders Only [facility] CLINCONV ProviderJune MD [address] [place] [address] Social History Tobacco Use Types Packs/Day Years Used Date Smoking Tobacco: Never Assessed Comments Unknown Sex and Gender Information Value Date Recorded Sex Assigned at Not on file Legal Sex Female 6:28 AM CHEMICAL APPLICATOR Gender Identity Not on file Sexual Orientation Not on file documented as of this encounter Plan of Treatment Not on file documented as of this encounter Procedures Procedure Name Priority Date/Time Associated Diagnosis Comments PROCEDURE - RESULT 06/13/2017 12 :00 AM CDT documented in this encounter Results * PROCEDURE - RESULT (06/13/2017 12:00 AM CDT) Narrative 06/13/2017 12:00 AM CDT Ordered by an unspecified provider. Historical Provider Final Res ult documented in this encounter Visit Diagnoses Not on filedocumented in this encounter Care Teams Heel Brusher Relationship Specialty Start Date End Date Unknown, Notinfestephania PCP - General 02/12/18 06/20/18 Lesli Willis MD [address] [place], [place] [address]E [address] [place] [address] PCP - General Internal Medicine 06/21/18 09/11/23 Carly Woods MD [address] [facility] [address] [place] [address] PCP - General Internal Medicine 09/12/23 Unknown, Notinfile 06/21/18 documented as of this encounter
--- OUTSIDE RECORDS SUMMARY | 2024-03-29 13:43 | XMS_ITS | Encounter Summary ---
Author Organization [facility] Facility Care Team Providers Care Milking System Installer Name Role Phone Unknown, Notinfile Primary Care Provider Unavail able Lesli Willis MD Primary Care Provider [phone] Unknown, Notinfile Unavailable Unavailable Carly Woods MD Primary Care Provider Encounter Details Date Type Department Care Team (Latest Contact Info) Description 07/24/2015 Orders Only [facility] CLINCONV ProviderJune MD [address] [place] [address] Social History Tobacco Use Types Packs/Day Years Used Date Smoking Tobacco: Never Assessed Comments Unknown Sex and Gender Information Value Date Recorded Sex Assigned at Not on file Legal Sex Female 6:28 AM IRRIGATIONIST Gender Identity Not on file Sexual Orientation Not on file documented as of this encounter Plan of Treatment Not on file documented as of this encounter Procedures Procedure Name Priority Date/Time Associated Diagnosis Comments CARDIOLOGY REPORT 07/28/2015 12: 00 AM CDT CARDIOLOGY REPORT 07/28/2015 12: 00 AM CDT documented in this encounter Results * CARDIOLOGY REPORT (07/28/2015 12:00 AM CDT) Anatomical Region Laterality Modality Other Narrative 07/28/2015 12:00 AM CDT Ordered by an unspecified provider. Historical Provider [facility] DANILO MELVIN Final Result * CARDIOLOGY REPORT (07/28/2015 12:00 AM CDT) Anatomical Region Laterality Modality Other Narrative 07/28/2015 12:00 AM CDT Ordered by an unspecified provider. us Historical Provider [facility] CARDI[facility] DANILO MELVIN Final Result documented in this encounter Visit Diagnoses Not on filedocumented in this encounter Care Teams Milking System Installer Relationship Specialty Start Date End Date Unknown, Notinfile PCP - General 02/12/18 06/20/18 Lesli Willis MD [address] [place] [address] 1 [place] [address] PCP - General Internal Medicine 06/21/18 09/11/23 Carly Woods MD [address] [place] [address] [address] [place] [address] PCP - General Internal Medicine 09/12/23 Unknown, Notinfile 06/21/18 documented as of this encounter
--- OUTSIDE RECORDS SUMMARY | 2024-03-29 13:43 | XMS_ITS | Clinical Summary ---
Author Organization [facility] Address [address] [place] [address]. [place], [place] [address] [place] [address] Care Team Providers Care Park Superintendent Name Role Phone Lesli Willis MD Primary Care Provider [phone] Allergies Active Allergy Reactions Criticality Noted Date Comments Ampicillin Itching Low 06/18/2015 Aspirin Other (see comment) Low 03/15/2017 Stomach pain Codeine Anaphylaxis High 06/18/2015 Medications amlodipine 5 MG tablet 01/28/2018 Active gabapentin 300 MG capsule 02/02/2018 Active hydrochlorothiazid e 50 MG tablet 12/27/2017 Acti ve losartan 100 MG tablet 12/27/2017 Active metoprolol succinate 100 MG 24 hr tablet 03/08/2018 Active potassium chloride CR 20 MEQ tablet 12/27/2017 Ac tive tizanidine 2 MG tablet 02/03/2018 Active Active Problems No known active problems Family History Medical History Relation Comments Hypertension Mother Relation Status Comments Mother Social History Tobacco Use Types Packs/Day Years Used Date Smoking Tobacco: Former Smokeless Tobacco: Never Alcohol Use Standard Drinks/Week Comments No 0 (1 standard drink = 0.6 oz pur e alcohol) AUDIT-C Answer Date Recorded Frequency of Alcohol Consumption Never 03/14/2018 Average Number of Drinks Not on file 019 Frequency of Binge Drinking Not on file 02/27 Comments Unknown Sex and Gender Information Value Date Recorded Sex Assigned at Not on file Legal Sex Female 5:04 PM CDT Gender Identity Not on file Sexual Orientation Not on file Last Filed Vital Signs Vital Sign Reading Time Taken Comments Blood Pressure 120/74 03/14/2018 10:57 AM TECHNICIAN SEMICONDUCTOR DEVELOPMENT Pulse 65 03/14/2018 10:57 AM TECHNICIAN SEMICONDUCTOR DEVELOPMENT Temperature 36.6 ??C (97.8 ??F) 03/14/2018 10:[address] Respiratory Rate - - Oxygen Saturation - - Inhaled Oxygen Concentration - - Weight 98 kg (216 lb) 03/14/2018 10:57 AM TECHNICIAN SEMICONDUCTOR DEVELOPMENT Height 162.6 cm (5' 4 ) 03/14/2018 10:57 AM TECHNICIAN SEMICONDUCTOR DEVELOPMENT Body Mass Index 37.08 03/14/2018 10:57 AM TECHNICIAN SEMICONDUCTOR DEVELOPMENT Plan of Treatment Health Maintenance Due Date Last Done Comments Cervical Cancer Screening Pa p Smear (Age 30 to 64) Every 3 Years 1963 Colorectal Cancer Screening Colonoscopy (10 Years) 1963 Annual Physical 1966 Hepatitis C 1981 DTaP, Tdap and Td Vaccines ( 1 - Tdap) 1982 Cervical Cancer Screening Pa p with HPV Testing (Age 30 to 64) Every 5 Years 1993 Cervical Cancer Screening wi th HPV 1993 Mammogram Screening 2003 Zoster Vaccines (1 of 2) 2013 COVID-19 Vaccine (2023-2 5 season) 2023 06/11/2020, 05/14/2020 Influenza Adult (#1) 2023 03/03/2020, 11/07/2017 RSV Immunization or 60+ Years (1 - 1-dose 75+ series) 2038 Meningococcal B Vaccine Aged Out No l onger eligible based on patient's age to complete this topic Meningococcal Vaccine Aged Out No shai saqib eligible based on patient's age to complete this topic Pneumococcal Vaccine: Pediatrics (0 to 5 Years) and At-Risk Patients (6 to 64 Years) Aged Out No longer eligible b ased on patient's age to complete this topic RSV Immunizations Under 20 Months Aged Out No longer eligible b ased on patient's age to complete this topic Insurance MEDICARE MEDICAID Care Teams Park Superintendent Relationship Specialty Start Date End Date Lesli Willis MD [address] [place] [id number] PCP - General INTERNAL MEDICINE 06/24/20
--- OUTSIDE RECORDS SUMMARY | 2024-03-29 13:44 | XMS_ITS | Encounter Summary ---
Author Organization [facility] Facility Care Team Providers Care Duct Cleaner Name Role Phone Unknown, Notinfile Primary Care Provider Unavail able Lesli Willis MD Primary Care Provider [phone] Unknown, Notinfile Unavailable Unavailable Carly Woods MD Primary Care Provider Encounter Details Date Type Department Care Team (Latest Contact Info) Description 10/22/2015 Orders Only [facility]G CLINCONV ProviderJune MD [address] [place] [address] Social History Tobacco Use Types Packs/Day Years Used Date Smoking Tobacco: Never Assessed Comments Unknown Sex and Gender Information Value Date Recorded Sex Assigned at Not on file Legal Sex Female 6:28 AM SHRINK PIT SUPERVISOR Gender Identity Not on file Sexual Orientation Not on file documented as of this encounter Plan of Treatment Not on file documented as of this encounter Procedures Procedure Name Priority Date/Time Associated Diagnosis Comments CARDIOLOGY REPORT 10/22/2015 12: 00 AM CDT documented in this encounter Results * CARDIOLOGY REPORT (10/22/2015 12:00 AM CDT) Anatomical Region Laterality Modality Other Narrative 10/22/2015 12:00 AM CDT Ordered by an unspecified provider. Historical Provider [facility] CARDIAC [facility] DANILO MELVIN Final Result documented in this encounter Visit Diagnoses Not on filedocumented in this encounter Care Teams Duct Cleaner Relationship Specialty Start Date End Date Unknown, Notinfile PCP - General 02/12/18 06/20/18 Lesli Willis MD [address] [facility] 1 [place] [address] PCP - General Internal Medicine 06/21/18 09/11/23 Carly Woods MD [address] [facility] [address] [place] [address] PCP - General Internal Medicine 09/12/23 Unknown, Notinfile 06/21/18 documented as of this encounter
--- OUTSIDE RECORDS SUMMARY | 2024-03-29 13:44 | XMS_ITS | Encounter Summary ---
Author Organization [facility] Facility Care Team Providers Care Human Resources Executive Assistant Name Role Phone Unknown, Notinfile Primary Care Provider Unavail able Lesli Willis MD Primary Care Provider [phone] Unknown, Notinfile Unavailable Unavailable Carly Woods MD Primary Care Provider Encounter Details Date Type Department Care Team (Latest Contact Info) Description 10/19/2015 Orders Only MMG CLINCONV ProviderJune MD [address] [place] [address] Social History Tobacco Use Types Packs/Day Years Used Date Smoking Tobacco: Never Assessed Comments Unknown Sex and Gender Information Value Date Recorded Sex Assigned at Not on file Legal Sex Female 6:28 AM TOGGLE PRESS OPERATOR Gender Identity Not on file Sexual Orientation Not on file documented as of this encounter Plan of Treatment Not on file documented as of this encounter Procedures Procedure Name Priority Date/Time Associated Diagnosis Comments SCAN - LABS 12/11/2015 12:00 AM CDT documented in this encounter Results * SCAN - LABS (12/11/2015 12:00 AM CDT) Narrative 12/11/2015 12:00 AM CDT Ordered by an unspecified provider. Historical Provider Final Res ult documented in this encounter Visit Diagnoses Not on filedocumented in this encounter Care Teams Human Resources Executive Assistant Relationship Specialty Start Date End Date Unknown, Notinfestephania PCP - General 02/12/18 06/20/18 Lesli Willis MD [address] [place], [place] [address] [address] [place] [address] PCP - General Internal Medicine 06/21/18 09/11/23 Carly Woods MD [address] [facility] [address] [place] [address] PCP - General Internal Medicine 09/12/23 Unknown, Notinfile 06/21/18 documented as of this encounter
--- OUTSIDE RECORDS SUMMARY | 2024-03-29 13:44 | XMS_ITS | Encounter Summary ---
Author Organization [facility] Facility Care Team Providers Care Spiral Spring Winder Name Role Phone Unknown, Notinfile Primary Care Provider Unavail able Lesli Willis MD Primary Care Provider [phone] Unknown, Notinfile Unavailable Unavailable Carly Woods MD Primary Care Provider Encounter Details Date Type Department Care Team (Latest Contact Info) Description 08/10/2015 Orders Only [facility] CLINCON[facility] ProviderJune MD [address] [place] [id number] Social History Tobacco Use Types Packs/Day Years Used Date Smoking Tobacco: Never Assessed Comments Unknown Sex and Gender Information Value Date Recorded Sex Assigned at Not on file Legal Sex Female 6:28 AM TRIMMER SORTER Gender Identity Not on file Sexual Orientation Not on file documented as of this encounter Plan of Treatment Not on file documented as of this encounter Procedures Procedure Name Priority Date/Time Associated Diagnosis Comments CARDIOLOGY REPORT 09/17/2015 12: 00 AM CDT documented in this encounter Results * CARDIOLOGY REPORT (09/17/2015 12:00 AM CDT) Anatomical Region Laterality Modality Other Narrative 09/17/2015 12:00 AM CDT Ordered by an unspecified provider. Historical Provider [facility] D[facility]ILO MELVIN Final Result documented in this encounter Visit Diagnoses Not on filedocumented in this encounter Care Teams Spiral Spring Winder Relationship Specialty Start Date End Date Unknown, Notinfile PCP - General 02/12/18 06/20/18 Lesli Willis MD [address] [facility] [address] [place] [address] PCP - General Internal Medicine 06/21/18 09/11/23 Carly Woods MD [address] [facility] [address] [place] [address] PCP - General Internal Medicine 09/12/23 Unknown, Notinfile 06/21/18 documented as of this encounter
--- OUTSIDE RECORDS SUMMARY | 2024-03-29 13:45 | XMS_ITS | Encounter Summary ---
Author Organization [facility] Facility Care Team Providers Care Order Desk Clerk Name Role Phone Unknown, Notinfile Primary Care Provider Unavail able Lesli Willis MD Primary Care Provider [phone] Unknown, Notinfile Unavailable Unavailable Carly Woods MD Primary Care Provider Encounter Details Date Type Department Care Team (Latest Contact Info) Description 03/25/2012 Orders Only [facility] CLINCONV ProviderJune MD [address] [place] [id number] Social History Tobacco Use Types Packs/Day Years Used Date Smoking Tobacco: Never Assessed Comments Unknown Sex and Gender Information Value Date Recorded Sex Assigned at Not on file Legal Sex Female 6:28 AM PARTS CLERK Gender Identity Not on file Sexual Orientation Not on file documented as of this encounter Plan of Treatment Not on file documented as of this encounter Procedures Procedure Name Priority Date/Time Associated Diagnosis Comments CARDIOLOGY REPORT 09/01/2015 12: 00 AM CDT documented in this encounter Results * CARDIOLOGY REPORT (09/01/2015 12:00 AM CDT) Anatomical Region Laterality Modality Other Narrative 09/01/2015 12:00 AM CDT Ordered by an unspecified provider. Historical Provider [facility] DANILO MELVIN Final Result documented in this encounter Visit Diagnoses Not on filedocumented in this encounter Care Teams Order Desk Clerk Relationship Specialty Start Date End Date Unknown, Notinfile PCP - General 02/12/18 06/20/18 Lesli Willis MD [address] [facility] [address] [place] [address] PCP - General Internal Medicine 06/21/18 09/11/23 Carly Woods MD [address] [facility] [address] [place] [address] PCP - General Internal Medicine 09/12/23 Unknown, Notinfile 06/21/18 documented as of this encounter
--- OUTSIDE RECORDS SUMMARY | 2024-03-29 13:45 | XMS_ITS | Clinical Summary ---
Author Organization [facility] Address [address] [place] [address] Care Team Providers Care Registered Art Therapist Name Role Phone Unknown, Notinfile Unavailable Unavailable Carly Woods MD Primary Care Provider Allergies Active Allergy Reactions Criticality Noted Date Comments Ampicillin Itching Low 06/18/2015 Aspirin Anaphylaxis High 07/10/2018 anaphylaxis Codeine Phosphate Anaphylaxis High 07/10/2018 anaphylaxis Medications amLODIPine (NORVASC) 10 mg tablet Take 1 tablet (10 mg total) by mouth daily 9 Active cyanocobalamin, vitamin B-12, 1,000 mcg tablet extended release daily Active losartan (COZAAR) 100 mg tablet Take 1 tablet (100 mg total) by mouth daily 9 Active metoprolol XL (TOPROL-XL) 100 mg 24 hr tablet TAKE 1 TABLET BY MOUTH EVERY DAY 90 tablet 1 0 Active hydroCHLOROthia zide (HYDRODIURIL) 50 mg tablet TAKE 1 TABLET BY MOUTH EVERY DAY IN THE MORNING 90 tablet 1 0 Active multivit-min/fe rrous fumarate (MULTI VITAMIN ORAL) Take by mouth daily Bariatric vitamin Active biotin 1 mg tablet Take 1 tablet (1,000 mcg total) by mouth 3 (three) times a day Active potassium chloride ER (potassium chloride ER) 20 mEq CR tablet Take 1 tablet (20 mEq total) by mouth daily 90 tablet 1 1 Active calcium carbonate-vitam in D3 (CALTRATE 600 + D) 1500 mg (600 mg elemental) -400 units per tablet Take 1 tablet by mouth 2 (two) times a day 2 Active omeprazole (PriLOSEC) 20 mg capsule Take 1 capsule (20 mg total) by mouth daily before breakfast 2 Active polyethylene glycol (MIRALAX) 17 gram packetIndicatio ns:constipation Take 1 packet (17 g total) by mouth as needed for constipation Active ferrous sulfate 325 mg (65 mg of elemental iron) tabletIndicatio ns:Iron Deficiency Anemia Take 1 tablet (325 mg total) by mouth daily with breakfast Active gabapentin (NEURONTIN) 600 mg tablet Take 1 tablet (600 mg total) by mouth 3 (three) times a day 3 Active tiZANidine (ZANAFLEX) 4 mg tablet Take 1 tablet (4 mg total) by mouth daily as needed 3 Active Symbicort 160-4.5 mcg/actuation inhaler INHALE 2 PUFFS BY MOUTH 2 TIMES A DAY RINSE MOUTH WITH WATER AFTER USE. DO NOT SWALLOW. 30.6 each 3 4 Active clobetasoL (TEMOVATE) 0.05 % cream PLEASE SEE ATTACHED FOR DETAILED DIRECTIONS 4 Active fluocinolone (DERMA-SMOOTH/F S) 0.01 % oil APPLY THIN LAYER TO SCALP EVERY NIGHT AT BEDTIME FOR UP TO 2 WEEKS, THEN USE NEEDED 4 Active ketoconazole (NIZORAL) 2 % shampoo SHAMPOO TWICE WEEKLY, LEAVE ON FOR 5 MINUTES THEN RINSE OFF 4 Active Ventolin HFA 90 mcg/actuation inhaler INHALE 2 PUFFS BY MOUTH 4 TIMES A DAY 54 each 3 4 Active Active Problems Problem Noted Date Diagnosed Date Pulmonary air trapping 09/12/2023 BMI 30.0-30.9,adult 08/05/2022 Disorder of shoulder 09/06/2021 Shoulder joint pain 09/06/2021 Small airways disease 09/06/2021 Chronic obstructive pulmonary disease 03/03/2020 Assessment & Plan (07/28/2020 11:08 AM CDT): Dr. Thomas. Albuterol inhaler. Symbicort inhaler. BMI 40.0-44.9, adult 02/05/2019 Cigarette nicotine dependence in remission 02/05 Chronic diastolic congestive heart failure (CMS/ HCC) 07/09/2018 Assessment & Plan (07/28/2020 11:07 AM CDT): Stable at this time. Salt restriction. Blood pressure control. Hydrochlorothiazide primarily for the blood pressure control. Will check CBC, complete metabolic panel, lipid profile, T4 and TSH. Assessment & Plan (01/27/2020 5:33 PM RESTORATIVE ART EMBALMER): Salt restriction. Blood pressure control. Assessment & Plan (07/19/2019 3:27 PM CDT): Salt restriction. Blood pressure control. Assessment & Plan (01/15/2019 11:22 AM RESTORATIVE ART EMBALMER): Salt restriction. Blood pressure control. Assessment & Plan (07/10/2018 10:56 AM CDT): Stable. Blood pressure control. Salt restriction. Status post cardiac catheterization 07/09/2018 Assessment & Plan (07/24/2020 4:39 PM CDT): Cardiac catheterization 09/06/2012 showed no significant coronary disease. Assessment & Plan (01/27/2020 5:32 PM RESTORATIVE ART EMBALMER): Cardiac catheterization 09/06/2012 showed no significant coronary artery disease. Assessment & Plan (07/19/2019 3:27 PM CDT): Cardiac catheterization 09/06/2012 showed no significant coronary artery disease. Assessment & Plan (01/15/2019 11:23 AM RESTORATIVE ART EMBALMER): Cardiac catheterization 09/06/2012 showed no significant coronary artery disease. Assessment & Plan (07/09/2018 1:07 PM CDT): Cardiac catheterization 09/06/2012 showed no significant coronary artery disease. Pulmonary nodules 11/07/2017 Obstructive sleep apnea 01/05/2016 Overview (07/02/2018): With nocturnal hypoxemia. Qualifies for nocturnal home O2. Elevated diaphragm 11/03/2015 Decreased diffusion capacity 11/03/2015 Hyperactive airway disease 11/03/2015 Mitral valve regurgitation 10/07/2015 Overview (07/02/2018): Moderate to severe mitral regurgitation by echo 08/10/2015. Moderate mitral prolapse. The ANJELICA showed no significant Mitral valve regurgitation. Assessment & Plan (07/24/2020 4:37 PM CDT): Moderate to severe mitral regurgitation by echo 08/10/2015. Moderate mitral prolapse. The ANJELICA showed no significant Mitral valve regurgitation. Echo Doppler 07/02/2019 showed mild MR. Assessment & Plan (01/27/2020 5:31 PM RESTORATIVE ART EMBALMER): Moderate to severe mitral regurgitation by echo 08/10/2015. Moderate mitral prolapse. The ANJELICA showed no significant Mitral valve regurgitation. Echo Doppler 07/02/2019 showed normal ejection fraction. Mild MR. Mild TR with normal right ventricular systolic pressure. Assessment & Plan (07/19/2019 3:29 PM CDT): Moderate to severe mitral regurgitation by echo 08/10/2015. Moderate mitral prolapse. The ANJELICA showed no significant Mitral valve regurgitation. Echo Doppler 07/02/2019, showed normal ejection fraction. Mild mitral regurgitation. Mild tricuspid regurgitation with normal right ventricular systolic pressure. Assessment & Plan (01/15/2019 11:21 AM RESTORATIVE ART EMBALMER): Moderate to severe mitral regurgitation by echo 08/10/2015. Moderate mitral prolapse. The ANJELICA showed no significant Mitral valve regurgitation Assessment & Plan (07/09/2018 1:04 PM CDT): Moderate to severe mitral regurgitation by echo 08/10/2015. Moderate mitral prolapse. The ANJELICA showed no significant Mitral valve regurgitation. Dizziness 09/17/2015 Assessment & Plan (07/23/2019 11:13 AM CDT): No dizziness on this visit. Exertional dyspnea 09/17/2015 Assessment & Plan (07/28/2020 11:09 AM CDT): Chronic. No cardiac factors to explain the dyspnea. Probably related to the pulmonary factors and to her weight. Assessment & Plan (01/27/2020 5:29 PM RESTORATIVE ART EMBALMER): Chronic. No cardiac factors to explain the dyspnea. Probably related to the pulmonary factors. Assessment & Plan (07/19/2019 3:25 PM CDT): Chronic. No cardiac factors to explain the dyspnea. Probably related to the pulmonary factors. Assessment & Plan (01/15/2019 11:21 AM RESTORATIVE ART EMBALMER): Chronic. No cardiac factors to explain the dyspnea. Probably related to the pulmonary factors. History of nicotine dependence 09/17/2015 Other secondary pulmonary hypertension 6 Assessment & Plan (07/24/2020 4:40 PM CDT): Related to the obstructive sleep apnea and morbid obesity. Echo Doppler June 2019, showed no pulmonary hypertension. Assessment & Plan (01/27/2020 5:34 PM RESTORATIVE ART EMBALMER): Related to the obstructive sleep apnea and morbid obesity. Echo Doppler June 2019 showed no pulmonary hypertension. Assessment & Plan (07/23/2019 11:14 AM CDT): Related to the obstructive sleep apnea and morbid obesity. The echo Doppler June 2019 showed no pulmonary hypertension. Post-nasal drainage 09/17/2015 Sleep disorder 09/17/2015 Anemia 07/17/2015 Assessment & Plan (07/28/2020 11:08 AM CDT): Check CBC hopefully today. Assessment & Plan (07/09/2018 1:06 PM CDT): On 03/06/2016 the hemoglobin was 10.2, hematocrit 33.8. Morbid obesity 07/17/2015 Assessment & Plan (07/24/2020 4:39 PM CDT): She has been encouraged to lose weight. Assessment & Plan (01/28/2020 11:50 AM RESTORATIVE ART EMBALMER): Lose weight. Assessment & Plan (07/23/2019 11:14 AM CDT): She was encouraged once again to lose weight. Assessment & Plan (07/10/2018 10:54 AM CDT): Was encouraged to lose weight. Precordial chest pain 07/17/2015 Assessment & Plan (07/24/2020 4:39 PM CDT): Stress echo 01/09/2018 was negative for ischemia. Assessment & Plan (01/27/2020 5:32 PM RESTORATIVE ART EMBALMER): Stress echo 01/09/2018 was negative for ischemia. Assessment & Plan (07/23/2019 11:15 AM CDT): Stress echo 01/09/2018 was negative for ischemia. Continues to have nonspecific chest wall pains off and on. Assessment & Plan (01/15/2019 11:22 AM RESTORATIVE ART EMBALMER): No chest pain on this visit. Stress echo 01/09/2018 was negative for ischemia. Functional class 2, met level 7. Highest heart rate 153. Assessment & Plan (07/10/2018 10:53 AM CDT): No chest pain on this visit. Stress echo 01/09/2018 was negative for ischemia. Functional class 2 met level 7. Highest heart rate 153. Thyrotoxicosis 07/17/2015 Overview (07/02/2018): Dr. Murray. Assessment & Plan (07/28/2020 11:10 AM CDT): Dr. Murray. Will check T4 and TSH hopefully today. Resolved Problems Problem Noted Date Diagnosed Date Resolved Date Heart failure, unspecified (CMS/HCC) 09/17/2015 07/09/2018 Immunizations Name Administration Dates Next Due Hep B Vaccine 04/17/2007 Influenza, Quadrivalent, Split, Intramuscular Influenza, Quadrivalent, Spl it, Preservative Free, Intramuscular 12/10/2021,03/03/2020 Surgical History Surgery Date Site/Laterality Comments REVISION GASTRIC RESTRICTIVE PROCEDURE FOR MORBID OBESITY 01/05/2022 CATARACT EXTRACTION 02/27/2023 - 02/27/2024 Left Medical History Medical History Date Comments Heart failure (HCC) HHD (hypertensive heart disease) Thyrotoxicosis Anemia Precordial chest pain Dizziness Family History Medical History Relation Name Comments Heart attack Father Heart attack Mother Relation Name Status Comments Father Mother Social History Tobacco Use Types Packs/Day Years Used Date Smoking Tobacco: Former Cigarettes - 2009 Smokeless Tobacco: Never Tobacco Cessation:Counseling Given: Not Answered Alcohol Use Standard Drinks/Week Comments Not Currently 0 (1 standard drink = 0.6 oz pur e alcohol) Comments Unknown Sex and Gender Information Value Date Recorded Sex Assigned at Not on file Legal Sex Female 6:28 AM RESTORATIVE ART EMBALMER Gender Identity Not on file Sexual Orientation Not on file Obstetrics History Last Filed Vital Signs Vital Sign Reading Time Taken Comments Blood Pressure 134/80 12/26/2023 9:37 AM CDT Pulse 51 12/26/2023 9:37 AM CDT Temperature 36.2 ??C (97.1 ??F) 03/26/2021 3:02 PM CS T Respiratory Rate 16 12/26/2023 9:37 AM CDT Oxygen Saturation 98% 12/26/2023 9:37 AM CDT Inhaled Oxygen Concentration - - Weight 80.1 kg (176 lb 8 oz) 12/26/2023 9:37 AM CDT Height 162.6 cm (5' 4 ) 12/15/2023 9:40 AM CDT Body Mass Index 30.3 12/15/2023 9:40 AM CDT Plan of Treatment Health Maintenance Due Date Last Done Comments Breast Cancer Screening-Mammogram 1963 Cervical Cancer Screening 1963 Colon Cancer Screening-Colonoscopy 1963 Depression Screening 1963 Hepatitis C Screening 1963 Pneumococcal vaccine <65 (1 of 2 - PCV) 1969 DTaP/Tdap/Td Vaccine (1 - Tdap) 1974 Regular Well Visit/Exam 18-64 1981 Zoster Vaccine (1 of 2) 2013 Influenza Vaccine (#1) 2023 2, 03/03/2020, 11/07/2017 Insurance MEDICARE [employer] MEDICARE [employer] Care Teams Registered Art Therapist Relationship Specialty Start Date End Date Carly Woods MD [address] [place] [id number] PCP - General Internal Medicine 09/12/23 Unknown, Notinfile 06/21/18
--- OUTSIDE RECORDS SUMMARY | 2024-03-29 13:45 | XMS_ITS | Referral Summary ---
Author Organization [facility] Address [address] [place] [address] Care Team Providers Care Tool/Die Maker Name Role Phone Unknown, Notinfile Unavailable Unavailable [...] TSH. Assessment & Plan (01/27/2020 5:33 PM RAIL CAR REPAIRER): Salt restriction. Blood pressure control. Assessment & Plan (07/19/2019 3:27 PM CDT): Salt restriction. Blood pressure control. Assessment & Plan (01/15/2019 11:22 AM RAIL CAR REPAIRER): Salt restriction. Blood pressure control. Assessment & Plan (07/10/2018 10:56 AM CDT): Stable. Blood pressure control. Salt restriction. Status post cardiac catheterization 07/09/2018 Assessment & Plan (07/24/2020 4:39 PM CDT): Cardiac catheterization 09/06/2012 showed no significant coronary disease. Assessment & Plan (01/27/2020 5:32 PM RAIL CAR REPAIRER): Cardiac catheterization 09/06/2012 showed no significant coronary artery disease. Assessment & Plan (07/19/2019 3:27 PM CDT): Cardiac catheterization 09/06/2012 showed no significant coronary artery disease. Assessment & Plan (01/15/2019 11:23 AM RAIL CAR REPAIRER): Cardiac catheterization 09/06/2012 showed no significant coronary [...] MR. Assessment & Plan (01/27/2020 5:31 PM RAIL CAR REPAIRER): Moderate to severe mitral regurgitation by echo [...] pressure. Assessment & Plan (01/15/2019 11:21 AM RAIL CAR REPAIRER): Moderate to severe mitral regurgitation by echo [...] weight. Assessment & Plan (01/27/2020 5:29 PM RAIL CAR REPAIRER): Chronic. No cardiac factors to explain the dyspnea. Probably related to the pulmonary factors. Assessment & Plan (07/19/2019 3:25 PM CDT): Chronic. No cardiac factors to explain the dyspnea. Probably related to the pulmonary factors. Assessment & Plan (01/15/2019 11:21 AM RAIL CAR REPAIRER): Chronic. No cardiac factors to explain the dyspnea. Probably related to the pulmonary factors. History of nicotine dependence 09/17/2015 Other secondary pulmonary hypertension 6 Assessment & Plan (07/24/2020 4:40 PM CDT): Related to the obstructive sleep apnea and morbid obesity. Echo Doppler June 2019, showed no pulmonary hypertension. Assessment & Plan (01/27/2020 5:34 PM RAIL CAR REPAIRER): Related to the obstructive sleep apnea and [...] weight. Assessment & Plan (01/28/2020 11:50 AM RAIL CAR REPAIRER): Lose weight. Assessment & Plan (07/23/2019 11:14 AM CDT): She was encouraged once again to lose weight. Assessment & Plan (07/10/2018 10:54 AM CDT): Was encouraged to lose weight. Precordial chest pain 07/17/2015 Assessment & Plan (07/24/2020 4:39 PM CDT): Stress echo 01/09/2018 was negative for ischemia. Assessment & Plan (01/27/2020 5:32 PM RAIL CAR REPAIRER): Stress echo 01/09/2018 was negative for ischemia. Assessment & Plan (07/23/2019 11:15 AM CDT): Stress echo 01/09/2018 was negative for ischemia. Continues to have nonspecific chest wall pains off and on. Assessment & Plan (01/15/2019 11:22 AM RAIL CAR REPAIRER): No chest pain on this visit. Stress [...] Quadrivalent, Spl it, Preservative Free, Intramuscular 12/10/2021,03/03/2020 Social History Tobacco Use Types Packs/Day Years Used Date Smoking Tobacco: Former Cigarettes 1 - 2009 Smokeless Tobacco: Never Tobacco Cessation:Counseling Given: Not Answered Alcohol Use Standard Drinks/Week Comments Not Currently 0 (1 standard drink = 0.6 oz pur e alcohol) Comments Unknown Sex and Gender Information Value Date Recorded Sex Assigned at Not on file Legal Sex Female 6:28 AM RAIL CAR REPAIRER Gender Identity Not on file Sexual Orientation [...] 12/15/2023 9:40 AM CDT Plan of Treatment Not on file Insurance MEDICARE [facility] MEDICARE IDPA [facility] MEDICARE [employer] Care Teams Tool/Die Maker Relationship Specialty Start Date End Date Carly Woods MD [address] [place] [id number] PCP - General Internal Medicine 09/12/23 Unknown, Notinfile 06/21/18
[2024-03-29 15:39] LABS: Basophils Percent Auto 0.3 % (0.2-1.2); Eosinophils Percent Auto 0.5 % (0-4.4); Hematocrit 34.6 % (37.0-47.0); Hemoglobin 10.5 g/dL (12.0-15.0); Immature Granulocyte Absolute 0.02 K/mm3 (0.00-0.031); Immature Granulocyte Percent A 0.3 % (0-0.5); Lymphocytes Absolute Auto 2.25 K/mm3 (0.9-3.2); Lymphocytes Percent Auto 34.6 % (18.3-44.2); Mean Corpuscular HGB Conc 30.3 g/dl (32-36); Mean Corpuscular Hemoglobin 27.1 pg (26-34); Mean Corpuscular Volume 89.4 fl (80-100); Mean Platelet Volume 11.5 fl (7.4-10.4); Monocytes Absolute Auto 0.4 K/mm3 (0.1-0.6); Monocytes Percent Auto 5.5 % (2.6-8.5); Neutrophils Absolute Auto 3.8 K/mm3 (1.3-6.7); Neutrophils Percent Auto 58.8 % (45.5-73.1); Platelet Count Result 196 k/mm3 (150-375); Red Blood Count 3.87 M/mm3 (4.2-5.4); Red Cell Distribution Width 13.1 % (11.5-14.5); White Blood Count 6.5 K/mm3 (4.5-10.0)
[2024-03-29 15:42] LABS: Add Urine Microscopic? NO; Appearance Urine Clear (Clear); Bilirubin Urine Negative (Negative); Blood Urine Negative (Negative); Color Urine Yellow (Yellow); Glucose Urine UA Negative (Negative); Ketones Urine Negative (Negative); Leukocyte Esterase Ur Negative LEU/UL (Negative); Nitrate Urine Negative (Negative); Protein Urine Negative (Negative); Specific Grav Ur 1.004 (1.001-1.035); Urobilinogen Urine 0.2 mg/dL (<2.0)
[2024-03-29 16:00] LABS: Parathyroid Intact 33.4 pg/mL (14.5-75.2)
[2024-03-29 16:20] LABS: Vitamin D 25 Hydroxy 52.5 ng/mL
[2024-04-01 15:33] LABS: Creatinine, Random Urine 13 mg/dL (20-275); Total Prot/Creat ratio mg/mg NOTE (0.024-0.184); Total Protein/Creatinine Ratio NOTE mg/g creat (24-184)
== END 2024-03-29 13:37 | disposition home or self-care (01) ==
PROVIDERS: PCP Internal Medicine Infectious Disease
DX: N13.39 Other hydronephrosis (principal); N28.1 Cyst of kidney, acquired; N18.30 Chronic kidney disease, stage 3 unspecified
CPT/HCPCS: 36415; 76775; 81003; 82306; 82570; 83970; 84156; 84166; 84244; 85025

== ENCOUNTER 2024-05-03 10:32 | Outpatient (CLI) | payer MEDICARE, MEDICAID, SELFPAY ==
--- NOTE | ~2024-05-03 | MR_ITS ---
EXAMINATION: MR lumbar spine wo con DATE: 05/03/2024 10:56 INDICATION: Chronic low back pain TECHNIQUE: Magnetic resonance imaging (MRI) of the lumbar spine was performed without intravenous con trast. Sequences included sagittal T2-weighted FSE, sagittal T2-weighted FS FSE, sagittal T1-weighted FSE, and axial T2-weighted FSE. COMPARISON: 11/19/2016 FINDINGS: 2 mm retrolisthesis of L5 on S1 with anterior fusion across the disc space. Alignment is otherwise no rmal. Remaining vertebral body heights are normal. Heterogeneous pattern of red and yellow marrow. Mi ld disc height loss at T12, and L3-L4 and mild disc desiccation without significant disc height loss at L2-L3 and L4-L5. The conus medullaris terminates at L1. There is normal signal in the caudal spina l cord. Paravertebral soft tissues are unremarkable. The following disc levels are specifically discu ssed: T12-L1: Disc is minimally bulging. There is mild bilateral facet joint osteoarthritis. There is mild bilateral neural foraminal stenosis. There is minimal central canal stenosis. L1-L2: Disc is bulging. There is moderate bilateral facet joint osteoarthritis. There is moderate rig ht and mild to moderate left neural foraminal stenosis. There is mild central canal stenosis. L2-L3: Disc is mildly bulging with superimposed left foraminal zone disc protrusion. There is moderat e left and mild to moderate right facet joint osteoarthritis. There is moderate right and mild to mod erate left neural foraminal stenosis. There is mild central canal stenosis. L3-L4: Disc is bulging. There is hypertrophy of the ligamentum flavum. There is severe bilateral face t joint osteoarthritis. There is right and mild to moderate left neural foraminal stenosis. There is moderate central canal stenosis. L4-L5: Disc is bulging with annular fissure at the left foraminal zone. There is severe bilateral fac et joint osteoarthritis. There is mild bilateral neural foraminal stenosis. There is moderate central canal stenosis. L5-S1: Disc space is fused. There is fusion across the right facet joint and early fusion across the left facet joint. There is mild to moderate bilateral neural foraminal stenosis. Th ere is mild central canal stenosis. IMPRESSION: 1. Anterior and posterior fusion at L5-S1. 2. Mild spondylosis and more cephalad lumbar spine with multilevel moderate to severe facet osteoarth ritis most notable for moderate to severe central canal stenosis at L3-L4 and multilevel mild to mode rate neural foraminal stenosis. Reviewed, dictated and finalized at location B. BUYER TOBACCO IMPRESSION: 1. Anterior and posterior fusion at L5-S1. 2. Mild spondylosis and more cephalad lumbar spine with multilevel moderate to severe facet osteoarthritis most notable for moderate to severe central canal s tenosis at L3-L4 and multilevel mild to moderate neural foraminal stenosis.
== END 2024-05-03 10:33 | disposition home or self-care (01) ==
LOC: MICIMG 10:33
PROVIDERS: PCP Internal Medicine Infectious Disease; Visit Provider Internal Medicine Infectious Disease
DX: M47.816 Spondylosis without myelopathy or radiculopathy, lumbar region (principal); M48.061 Spinal stenosis, lumbar region without neurogenic claudication; Z98.1 Arthrodesis status
CPT/HCPCS: 72148

== ENCOUNTER 2024-08-07 21:07 | Emergency (ER) | payer MEDICARE, SELFPAY ==
[2024-08-07] VITALS (12 sets, daily range): BP systolic 95–123; BP diastolic 61–95; PULSE 49–63; RESP 12–18; TEMP 36.9; O2SAT 99–100
--- NOTE | ~2024-08-07 | XR_ITS ---
XR chest 1V portable Ordering provider: Heri Robbins MD History: 59 years Female with . syncope . Comparison: June 08, 2017 FINDINGS: MEDIASTINUM: The cardiac silhouette is not enlarged. LUNGS: No infiltrates, effusions or pneumothorax. OTHER: No free air under the diaphragm. Degenerative changes of the spine. IMPRESSION: No acute cardiopulmonary pathology. Reviewed, dictated and finalized at location A.
--- NOTE | 2024-08-07 21:09 | ECG_ITS ---
Test Date: 2024-08-07 21:12:11 Measurements Intervals Ona Rate: 49 P: 28 OH: 173 QRS: 41 QRSD: 97 T: 40 QT: 469 QTc: 427 Interpretive Statements SINUS BRADYCARDIA EARLY PRECORDIAL R/S TRANSITION ABNORMAL ECG No previous ECG available for comparison Electronically Signed On 08-08-2024 05:49:07 CDT by Joel Hodges D.O.
[2024-08-07 22:02] LABS: Basophils Percent Auto 0.4 % (0.2-1.2); Eosinophils Percent Auto 0.4 % (0-4.4); Hemoglobin 10.7 g/dL (12.0-15.0); Immature Granulocyte Absolute 0.02 K/mm3 (0.00-0.031); Immature Granulocyte Percent A 0.2 % (0-0.5); Lymphocytes Percent Auto 18.8 % (18.3-44.2); Mean Corpuscular HGB Conc 30.6 g/dl (32-36); Mean Corpuscular Hemoglobin 27.4 pg (26-34); Mean Corpuscular Volume 89.7 fl (80-100); Mean Platelet Volume 11.1 fl (7.4-10.4); Monocytes Absolute Auto 0.6 K/mm3 (0.1-0.6); Monocytes Percent Auto 6.7 % (2.6-8.5); Neutrophils Percent Auto 73.5 % (45.5-73.1); Platelet Count Result 167 k/mm3 (150-375); Red Cell Distribution Width 13.2 % (11.5-14.5); White Blood Count 9.6 K/mm3 (4.5-10.0)
--- OUTSIDE RECORDS SUMMARY | 2024-08-07 22:13 | XMS_ITS | Encounter Summary ---
Author Organization [facility] Facility Care Team Providers Care Registered Dental Assistant Name Role Phone Unknown, Notinfile Primary Care Provider Unavail able Lesli Willis MD Primary Care Provider [phone] Unknown, Notinfile Unavailable Unavailable Carly Woods MD Primary Care Provider Encounter Details Date Type Department Care Team (Latest Contact Info) Description 03/25/2012 Orders Only [facility] ProviderJune MD [address] [place] [address] Social History Tobacco Use Types Packs/Day Years Used Date Smoking Tobacco: Never Assessed Comments Unknown Sex and Gender Information Value Date Recorded Sex Assigned at Not on file Legal Sex Female 6:28 AM 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
--- OUTSIDE RECORDS SUMMARY | 2024-08-07 22:13 | XMS_ITS | Encounter Summary ---
Author Organization [facility] Facility Care Team Providers Care Studio Owner Name Role Phone Unknown, Notinfile Primary Care Provider Unavail able Lesli Willis MD Primary Care Provider [phone] Unknown, Notinfile Unavailable Unavailable Carly Woods MD Primary Care Provider Encounter Details Date Type Department Care Team (Latest Contact Info) Description 12/24/2014 Orders Only [facility]INCON[facility] ProviderJune MD [address] [place] [address] Social History Tobacco Use Types Packs/Day Years Used Date Smoking Tobacco: Never Assessed Comments Unknown Sex and Gender Information Value Date Recorded Sex Assigned at Not on file Legal Sex Female 6:28 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
--- OUTSIDE RECORDS SUMMARY | 2024-08-07 22:13 | XMS_ITS | Encounter Summary ---
Author Organization [facility] Facility Care Team Providers Care Loom Blower Name Role Phone Unknown, Notinfile Primary Care Provider Unavail able Lesli Willis MD Primary Care Provider [phone] Unknown, Notinfile Unavailable Unavailable Caryl Woods MD Primary Care Provider Encounter Details Date Type Department Care Team (Latest Contact Info) Description 09/06/2012 Orders Only [facility]INCON[facility] ProviderJune MD [address] [place] [address] Social History Tobacco Use Types Packs/Day Years Used Date Smoking Tobacco: Never Assessed Comments Unknown Sex and Gender Information Value Date Recorded Sex Assigned at Not on file Legal Sex Female 6:28 AM NURSING EDUCATION CONSULTANT Gender Identity Not on file Sexual [...] on filedocumented in this encounter Care Teams Loom Blower Relationship Specialty Start Date End Date Unknown, Notinfile PCP - General 02/12/18 06/20/18 Lesli Willis MD [address] [address] PCP - General Internal Medicine 06/21/18 09/11/23 Carly Woods MD [address] [address] PCP - General Internal Medicine 09/12/23 Unknown, Notinfile 06/21/18 documented as of this encounter
--- OUTSIDE RECORDS SUMMARY | 2024-08-07 22:13 | XMS_ITS | Encounter Summary ---
Author Organization [facility] Address [address] [facility] [address] [place] [address] Phone Care Team Providers Care Photocomposing Keyboard Operator Name Role Phone Unknown, Notinfile Unavailable Unavailable Carly Woods MD Primary Care Provider Encounter Details Date Type Department Care Team (Latest Contact Info) Description 06/05/2024 Results Follow-Up [facility] Surgery [address] [facility] [address] [place] [phone] Jesus Tapia MD [address] [facility] [place] [place] [address] CBC with auto differential, Differential, auto, Comprehensive metabolic panel, eGFR Social History Tobacco Use Types Packs/Day Years Used Date Smoking Tobacco: Former Cigarettes 2009 Smokeless Tobacco: Never Alcohol Use Standard Drinks/Week Comments Not Currently 0 (1 standard drink = 0.6 oz pur e alcohol) Comments Unknown Sex and Gender Information Value Date Recorded Sex Assigned at Not on file 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
--- OUTSIDE RECORDS SUMMARY | 2024-08-07 22:13 | XMS_ITS | Encounter Summary ---
Author Organization [facility] Facility Care Team Providers Care Beet Worker Name Role Phone Unknown, Notinfile Primary Care Provider Unavail able Lesli Willis MD Primary Care Provider [phone] Unknown, Notinfile Unavailable Unavailable Carly Woods MD Primary Care Provider Encounter Details Date Type Department Care Team (Latest Contact Info) Description 10/19/2015 Orders Only [facility]INCON[facility] ProviderJune MD [address] [place] [address] Social History Tobacco Use Types Packs/Day Years Used Date Smoking Tobacco: Never Assessed Comments Unknown Sex and Gender Information Value Date Recorded Sex Assigned at Not on file 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
--- OUTSIDE RECORDS SUMMARY | 2024-08-07 22:13 | XMS_ITS | Referral Summary ---
Author Organization [facility] Address [address] [place] [address] Care Team Providers Care Media Marketing Coordinator Name Role Phone Unknown, Notinfile Unavailable Unavailable Carly Woods MD Primary Care Provider Encounters Date Type Department Care Team Description 07/17/2024 8:20 AM CDT Office Visit [facility] [address] [place] [address] [address] [place] [phone] Jesus Tapia MD Hydronephrosis, unspecified hydronephrosis type (Primary Dx) 06/28/2024 Telephone [facility] [address] [place] [address] Ly Thomas MD 06/26/2024 Results Follow-Up [facility] [address] [place] [address] [address] [place] [phone] Urogram W Contrast No 3D 06/16/2024 2:46 PM CDT - 06/16/2024 11:59 PM CDT Hospital Encounter [facility] [address] [place] [address] Hydronephrosis, unspecified hydronephrosis type Discharge Disposition: Discharge to home or self care 06/05/2024 1:41 PM CDT - 06/05/2024 11:59 PM CDT Hospital Encounter [facility] Lab [address] [facility] [place] [address] Hydronephrosis, unspecified hydronephrosis type Discharge Disposition: Discharge to home or self care 06/05/2024 Results Follow-Up [facility] [address] [place] [address] [address] [place] [address] Jesus Tapia MD CBC with auto differential, Differential, auto, Comprehensive metabolic panel, eGFR 06/05/2024 9:55 AM CDT Lab [facility] [address] [place] [address] Hydronephrosis, unspecified hydronephrosis type 06/05/2024 9:20 AM CDT Office Visit [facility] [address] [place] [address] [address] [place] [address] Jesus Tapia MD Hydronephrosis, unspecified hydronephrosis type (Primary Dx) 05/30/2024 8:30 PM CDT - 05/30/2024 11:59 PM CDT Hospital Encounter [facility] ([facility]) [address] [place] [address] Discharge Disposition: Discharge to home or self care 05/22/2024 10:00 AM CDT Office Visit [facility] [address] [place] [phone] Jesus Tapia MD Hydronephrosis, unspecified hydronephrosis type 05/21/2024 3:30 PM CDT Office Visit [facility] [address] [place] [address] Ly Thomas MD Obstructive sleep apnea (Primary Dx); Personal history of nicotine dependence; Elevated diaphragm; Other secondary pulmonary hypertension (HCC); Pulmonary nodules; Cigarette nicotine dependence in remission; Simple chronic bronchitis (HCC); Pulmonary air trapping from Last 3 Months Allergies Active Allergy Reactions Criticality Noted Date [...] by mouth daily as needed 3 Active clobetasoL (TEMOVATE) 0.05 % cream PLEASE SEE ATTACHED FOR DETAILED DIRECTIONS 4 Active fluocinolone (DERMA-SMOOTH/F S) 0.01 % oil APPLY THIN LAYER TO SCALP EVERY NIGHT AT BEDTIME FOR UP TO 2 WEEKS, THEN USE NEEDED 4 Active ketoconazole (NIZORAL) 2 % shampoo SHAMPOO TWICE WEEKLY, LEAVE ON FOR 5 MINUTES THEN RINSE OFF 4 Active budesonide-form oteroL (Symbicort) 160-4.5 mcg/actuation inhaler Inhale 2 puffs 2 (two) times a day Rinse mouth with water after use. Do not swallow. 3 each 3 5 08/20/19 25 Active albuterol HFA (Ventolin HFA) 90 mcg/actuation inhaler Inhale 2 puffs every 6 (six) hours as needed for wheezing 3 each 3 5 08/20/19 25 Active Active Problems Problem Noted Date Diagnosed Date Pulmonary air trapping 09/12/2023 BMI 30.0-30.9,adult 08/05/2022 Disorder of shoulder 09/06/2021 Shoulder joint pain 09/06/2021 Small airways disease 09/06/2021 Chronic obstructive pulmonary disease 03/03/2020 Assessment & Plan (07/28/2020 11:08 AM CDT): Dr. Thomas. Albuterol inhaler. Symbicort inhaler. BMI 40.0-44.9, adult 02/05/2019 Cigarette nicotine dependence in remission 02/05 Chronic diastolic congestive heart failure 07/09 Assessment & Plan (07/28/2020 11:07 AM CDT): Stable at this time. Salt restriction. Blood pressure control. Hydrochlorothiazide primarily for the blood pressure control. Will check CBC, complete metabolic panel, lipid profile, T4 and TSH. Assessment & Plan (01/27/2020 5:33 PM GRIPS): Salt restriction. Blood pressure control. Assessment & Plan (07/19/2019 3:27 PM CDT): Salt restriction. Blood pressure control. Assessment & Plan (01/15/2019 11:22 AM GRIPS): Salt restriction. Blood pressure control. Assessment & Plan (07/10/2018 10:56 AM CDT): Stable. Blood pressure control. Salt restriction. Status post cardiac catheterization 07/09/2018 Assessment & Plan (07/24/2020 4:39 PM CDT): Cardiac catheterization 09/06/2012 showed no significant coronary disease. Assessment & Plan (01/27/2020 5:32 PM GRIPS): Cardiac catheterization 09/06/2012 showed no significant coronary artery disease. Assessment & Plan (07/19/2019 3:27 PM CDT): Cardiac catheterization 09/06/2012 showed no significant coronary artery disease. Assessment & Plan (01/15/2019 11:23 AM GRIPS): Cardiac catheterization 09/06/2012 showed no significant coronary [...] MR. Assessment & Plan (01/27/2020 5:31 PM GRIPS): Moderate to severe mitral regurgitation by echo [...] pressure. Assessment & Plan (01/15/2019 11:21 AM GRIPS): Moderate to severe mitral regurgitation by echo [...] weight. Assessment & Plan (01/27/2020 5:29 PM GRIPS): Chronic. No cardiac factors to explain the dyspnea. Probably related to the pulmonary factors. Assessment & Plan (07/19/2019 3:25 PM CDT): Chronic. No cardiac factors to explain the dyspnea. Probably related to the pulmonary factors. Assessment & Plan (01/15/2019 11:21 AM GRIPS): Chronic. No cardiac factors to explain the dyspnea. Probably related to the pulmonary factors. History of nicotine dependence 09/17/2015 Other secondary pulmonary hypertension 6 Assessment & Plan (07/24/2020 4:40 PM CDT): Related to the obstructive sleep apnea and morbid obesity. Echo Doppler June 2019, showed no pulmonary hypertension. Assessment & Plan (01/27/2020 5:34 PM GRIPS): Related to the obstructive sleep apnea and [...] weight. Assessment & Plan (01/28/2020 11:50 AM GRIPS): Lose weight. Assessment & Plan (07/23/2019 11:14 AM CDT): She was encouraged once again to lose weight. Assessment & Plan (07/10/2018 10:54 AM CDT): Was encouraged to lose weight. Precordial chest pain 07/17/2015 Assessment & Plan (07/24/2020 4:39 PM CDT): Stress echo 01/09/2018 was negative for ischemia. Assessment & Plan (01/27/2020 5:32 PM GRIPS): Stress echo 01/09/2018 was negative for ischemia. Assessment & Plan (07/23/2019 11:15 AM CDT): Stress echo 01/09/2018 was negative for ischemia. Continues to have nonspecific chest wall pains off and on. Assessment & Plan (01/15/2019 11:22 AM GRIPS): No chest pain on this visit. Stress [...] Diagnosed Date Resolved Date Heart failure, unspecified 09/17/2015 0 07/09/2018 Immunizations Immunization Administration Dates Next Due Hep B Vaccine [...] on file Legal Sex Female 6:28 AM GRIPS Gender Identity Not on file Sexual Orientation Not on file Last Filed Vital Signs Vital Sign Reading Time Taken Comments Blood Pressure 119/72 05/21/2024 3:18 PM CDT Pulse 58 05/21/2024 3:18 PM CDT Temperature 36.4 C (97.5 F) 05/21/2024 3:18 PM CDT Respiratory Rate 18 05/21/2024 3:18 PM CDT Oxygen Saturation 97% 05/21/2024 3:18 PM CDT Inhaled Oxygen Concentration - - Weight 78 kg (172 lb) 07/17/2024 8:31 AM CDT Height 162.6 cm (5' 4.02) 07/17/2024 8:31 AM C DT Body Mass Index 29.51 07/17/2024 8:31 AM CDT Plan of Treatment Not on file Procedures Procedure Name Priority Date/Time Associated Diagnosis Comments CT UROGRAM Schedule Routine, Read Routine (OP Routine) 06/16/2024 2:57 PM CDT Hydronephrosis, unspecified hydronephrosis type EGFR Routine 06/05/2024 10:17 AM CDT Hydronephrosis, unspecified hydronephrosis type DIFFERENTIAL AUTO Routine 06/05/2024 10:17 AM CDT Hydronephrosis, unspecified hydronephrosis type COMPREHENSIVE METABOLIC PANEL Routine 06/05/2024 10:17 AM CDT Hydronephrosis, unspecified hydronephrosis type CBC WITH AUTO DIFFERENTIAL Routine 06/05/2024 10:17 AM CDT Hydronephrosis, unspecified hydronephrosis type POCT URINALYSIS DIPSTICK Routine 06/05/2024 9:24 AM CDT Hydronephrosis, unspecified hydronephrosis type URINALYSIS AND REFLEX TO MICROSCOPIC AND CULTURE Routine 06/05/2024 9:24 AM CDT Hydronephrosis, unspecified hydronephrosis type US TRANSFER OF OUTSIDE FILMS Routine 05/30/2024 8:30 PM CDT MEASURE POST VOID RESIDUAL Routine 05/22/2024 9:54 AM CDT Hydronephrosis, unspecified hydronephrosis type CT LUNG CANCER SCREENING Schedule Routine, Read Routine (OP Routine) 12/15/2023 9:35 AM CDT Personal history of nicotine dependence from Last 3 Months or Most Recently Relevant to Health Maintenance Results * CT Urogram W Contrast No 3D (06/16/2024 2:57 PM CDT) Anatomical Region Laterality Modality Body N/A Computed Tomogra phy 06/26/2024 6:54 AM CDT Narrative 06/26/2024 7:12 AM CDT EXAM DESCRIPTION: CT UROGRAM W CONTRAST NO 3D REASON FOR STUDY: mild right hydronephrosis Patient states umbilical pain x 2 months. Patient states it is hard to empty bladder for a while. Hx mathew. TECHNIQUE: CT scan of the abdomen and pelvis performed without and with intravenous and without oral contrast using helical scanning technique with dynamic intravenous contrast injection. Corticomedullary, nephrographic, excretory phase images were acquired. Reconstructed coronal and sagittal MPR images reviewed. All images stored on PACS. Automated exposure control was used as a dose optimization technique for this examination. CONTRAST TYPE/DOSE: 100mL of IOVERSOL 350 MG IODINE/ML INTRAVENOUS SYRINGE injected via intravenous COMPARISON: 12/15/2023 REFERENCE: Per ACR white paper recommendations, unless otherwise specified no follow-up imaging is recommended for incidental renal and adrenal lesions per consensus recommendations based on imaging criteria. Further lab evaluation could be pursued based on clinical findings. FINDINGS: LOWER CHEST: Right posterior calcified pleural thickening/pleural plaques which are nonspecific but may be seen with prior asbestos exposure, sequela of prior empyema or hemothorax, or previous surgery. Coronary atherosclerotic calcification. Tiny hiatal hernia. LIVER: No concerning lesions. GALLBLADDER/BILE DUCTS: Mild biliary ductal dilatation which can be physiologic in the setting of prior cholecystectomy. SPLEEN: Calcified granulomas, likely representing sequelae of prior granulomatous disease. PANCREAS: No significant ductal dilatation or discrete lesion. ADRENALS: No measurable nodule. KIDNEYS/URETERS: Subcentimeter hypodensities which are too small to further characterize. No hydronephrosis. No suspicious urothelial lesion. No upper tract filling defects. Suboptimal contrast opacification of the distal right ureter. No obstructing nephroureterolithiasis. BLADDER: No significant wall thickening. REPRODUCTIVE: Status post hysterectomy. Left ovary is not definitively visualized and poorly evaluated by CT. GASTROINTESTINAL: No dilated bowel loops. No obvious wall thickening. Non-dilated appendix. 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 Additional small bowel small bowel anastomosis in the upper abdomen suggestive of prior small bowel resection. Tiny hiatal hernia. No bowel obstruction. LYMPH NODES: No pathologically enlarged lymphadenopathy. PERITONEUM/RETROPERITONEUM: No ascites or free air. VASCULATURE: Multifocal atherosclerotic changes of the abdominal aorta and its major branches. No abdominal aortic aneurysm. MUSCULOSKELETAL: Diffuse bone demineralization. Multilevel degenerative changes most pronounced at L5-S1. Grade 1 anterolisthesis L4 on L5. Postsurgical changes status post L5 laminectomy. No aggressive appearing osseous lesions. No acute osseous abnormality. Small periumbilical fat containing hernia. OTHER: No significant abnormality. IMPRESSION: No acute abnormality with the abdomen or pelvis. No hydronephrosis. No obstructing nephroureterolithiasis. No suspicious urothelial lesion. No concerning renal lesion. 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 No bowel obstruction. Additional incidental and chronic findings as above. THIS IS AN ELECTRONICALLY VERIFIED FINAL REPORT 06/26/2024 7:12 AM - Electronically signed by Nito Acosta M.D. NS: NS Report ID: [id number] Reading Location: [id number] Procedure Note Nito Acosta MD - 06/26/2024 EXAM DESCRIPTION: CT UROGRAM W CONTRAST NO 3D REASON FOR STUDY: mild right hydronephrosis Patient states umbilical pain x 2 months. Patient states it is hard toempty bladder for a while. Hx mathew. TECHNIQUE: CT scan of the abdomen and pelvis performed without and with intravenous and without oral contrast using helical scanning techniquewith dynamic intravenous contrast injection. Corticomedullary, nephrographic, excretory phase images were acquired. Reconstructed coronal and sagittalMPR images reviewed. All images stored on PACS. Automated exposure control was used as a dose optimization technique for this examination. CONTRAST TYPE/DOSE: 100mL of IOVERSOL 350 MG IODINE/ML INTRAVENOUSSYRINGE injected via intravenous COMPARISON: 12/15/2023 REFERENCE: Per ACR white paper recommendations, unless otherwise specifiedno follow-up imaging is recommended for incidental renal and adrenal lesionsper consensus recommendations based on imaging criteria. Further labevaluation could be pursued based on clinical findings. FINDINGS: LOWER CHEST: Right posterior calcified pleuralthickening/pleural plaques which are nonspecific but may be seen with prior asbestosexposure, sequela of prior empyema or hemothorax, or previous surgery. Coronary atherosclerotic calcification. Tiny hiatal hernia. LIVER: No concerning lesions. GALLBLADDER/BILE DUCTS: Mild biliary ductal dilatation which can be physiologic in the setting of prior cholecystectomy. SPLEEN: Calcified granulomas, likely representing sequelae of prior granulomatous disease. PANCREAS: No significant ductal dilatation or discrete lesion. ADRENALS: No measurable nodule. KIDNEYS/URETERS: Subcentimeter hypodensities which are too small tofurther characterize. No hydronephrosis. No suspicious urothelial lesion. Noupper tract filling defects. Suboptimal contrast opacification of the distalright ureter. No obstructing nephroureterolithiasis. BLADDER: No significant wall thickening. REPRODUCTIVE: Status post hysterectomy. Left ovary is not definitively visualized and poorly evaluated by CT. GASTROINTESTINAL: No dilated bowel loops. No obvious wall thickening. Non-dilated appendix. 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 Additionalsmall bowel small bowel anastomosis in the upper abdomen suggestive of priorsmall bowel resection. Tiny hiatal hernia. No bowel obstruction. LYMPH NODES: No pathologically enlarged lymphadenopathy. PERITONEUM/RETROPERITONEUM: No ascites or free air. VASCULATURE: Multifocal atherosclerotic changes of the abdominal aortaand its major branches. No abdominal aortic aneurysm. MUSCULOSKELETAL: Diffuse bone demineralization. Multilevel degenerative changes most pronounced at L5-S1. Grade 1 anterolisthesis L4 on L5. Postsurgical changes status post L5 laminectomy. No aggressive appearing osseous lesions. No acute osseous abnormality. Small periumbilical fat containing hernia. OTHER: No significant abnormality. IMPRESSION: No acute abnormality with the abdomen or pelvis. No hydronephrosis. No obstructing nephroureterolithiasis. No suspicious urothelial lesion. No concerning renal lesion. 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 No bowel obstruction. Additional incidental and chronic findings as above. THIS IS AN ELECTRONICALLY VERIFIED FINAL REPORT 06/26/2024 7:12 AM - Electronically signed by Nito Acosta M.D. NS: NS Report ID: [id number] Reading Location: [place] [address] [place] Yousef John Tapia MD IMG CT PROCEDURES Fi nal Result * eGFR (06/05/2024 10:17 AM CDT) eGFR 60 >=60 mL/min/1. 73 m2 Comment: Interpretive Data Reference Interval Normal >/= 90 mL/min/1.73m2 Mildly decreased* 60 - 89 mL/min/1.73m2 Mildly to moderately decreased 45 - 59 mL/min/1.73m2 Moderately to severely decreased 30 - 44 mL/min/1.73m2 Severely decreased 15 - 29 mL/min/1.73m2 Kidney Failure < 15 mL/min/1.73m2 *Relative to young adult level Estimated glomerular filtration rate is determined by the 2020 CKD-EPI equation recommended by the National Kidney Foundation (A Unifying Approach to GFR Estimation: Recommendations of the NKF-ASK Task Force on Reassessing the Inclusion of Race in Diagnosing Kidney Disease, JASN 2020). The CKD-EPI equation should not be used for patients with unstable renal function and has not been validated in children and those over 70. Current interpretive data was last reviewed 2020. Testing performed by: [address] [address] Blood 06/05/2024 10:1 7 AM CDT 06/05/2024 12:40 PM CDT us Yousef John Tapia MD LAB BLOOD ORDERABLES Final Result [facility] [address] [place] [address] * Differential, auto (06/05/2024 10:17 AM CDT) Pathologist [facility] Neutrophil abs 3.64 1.50 - 6.50 K/cumm Comment:Testing performed by : [address] [address] [place] gran abs 0.01 0.00 - 0.10 K/cumm [facility] PERRY Comment:Testing performed by : [address] [address] Lymphocyte abs 1.81 0.80 - 3.30 K/cumm [facility] Comment:Testing performed by : [address] [address] Monocyte abs 0.41 0.20 - 0.80 K/cumm [facility] Comment:Testing performed by : [address] [address] Eosinophil abs 0.02 0.00 - 0.50 K/cumm [facility] Comment:Testing performed by : [address], [place]., [address] Basophil abs 0.02 0.00 - 0.10 K/cumm [facility] Comment:Testing performed by : [address] [address] Neutrophil pct 61.7 % [facility] Comment: Interpretive Data Percent cell count reference ranges are not reported, since discordance with absolute values may lead to misinterpretation of CBC data. Current Interpretive Data was last revised on 2017. Testing performed by: [address] [address] Imm gran pct 0.2 % [facility] Comment: Interpretive Data Percent cell count reference ranges are not reported, since discordance with absolute values may lead to misinterpretation of CBC data. Current Interpretive Data was last revised on 2017. Testing performed by: [address] [address] Lymphocyte pct 30.6 % [facility] Comment: Interpretive Data Percent cell count reference ranges are not reported, since discordance with absolute values may lead to misinterpretation of CBC data. Current Interpretive Data was last revised on 2017. Testing performed by: [address] [address] Monocyte pct 6.9 % CERNER Comment: Interpretive Data Percent cell count reference ranges are not reported, since discordance with absolute values may lead to misinterpretation of CBC data. Current Interpretive Data was last revised on 2017. Testing performed by: [address] [address] Eosinophil pct 0.3 % [facility] Comment: Interpretive Data Percent cell count reference ranges are not reported, since discordance with absolute values may lead to misinterpretation of CBC data. Current Interpretive Data was last revised on 2017. Testing performed by: [address] [address] Basophil pct 0.3 % [facility] PERRY Comment: Interpretive Data Percent cell count reference ranges are not reported, since discordance with absolute values may lead to misinterpretation of CBC data. Current Interpretive Data was last revised on 2017. Testing performed by: [address] [address] Blood 06/05/2024 10:1 7 AM CDT 06/05/2024 10:37 AM CDT us Jesus Tapia MD LAB BLOOD ORDERABLES Final Result [facility] Department [place] [address] * (ABNORMAL) CBC with auto differential (06/05/2024 10:17 AM CDT) WBC 5.91 3.80 - 9.90 K/cumm Comment:Testing performed by : [address] [address] Hgb 10.4(L) 11.9 - 15.5 g/dL [facility]INA PERRY Comment:Testing performed by : [address] [address] Hct 34.1(L) 35.6 - 45.5 % [facility]INA PERRY Comment:Testing performed by : [address] [address] Plt 148(L) 150 - 400 K/cumm KORINA PERRY Comment:Testing performed by : [address] [address] MPV 12.1 9.1 - 12.3 fL [facility] PERRY Comment:Testing performed by : [address] [address] RBC 3.86(L) 3.90 - 5.20 M/cumm KORINA PERRY Comment:Testing performed by : [address] [address] MCV 88.3 81.3 - 96.4 fL K[facility]INA PERRY Comment:Testing performed by : [address] [address] MCH 26.9(L) 27.1 - 33.3 pg [facility]INA PERRY Comment:Testing performed by : [address] [address] MCHC 30.5(L) 32.3 - 35.7 g/dL [facility] PERRY Comment:Testing performed by : [address] [address] RDW CV 13.8 11.1 - 14.9 % KORINA Comment:Testing performed by : [address] [address] RDW SD 44.9 35.7 - 48.1 fL [facility]INA PERRY Comment:Testing performed by : [address] [address] NRBC abs 0.00 0.00 - 0.01 K/cumm [facility]INA Comment:Testing performed by : [address] [address] Blood 06/05/2024 10:1 7 AM CDT 06/05/2024 10:37 AM CDT us Yousef John Tapia MD LAB BLOOD ORDERABLES Final Result [facility] [address] Department of Laboratories [place], [place] [id number] * Comprehensive metabolic panel (06/05/2024 10:17 AM CDT) Sodium 139 135 - 145 mmol/L Comment:Testing performed by : [address] [address] Potassium, pl 4.5 3.3 - 4.9 mmol/L KORINA Comment:Testing performed by : [address] [address] Chloride 104 97 - 110 mmol/L [facility]INA Comment:Testing performed by : [address] [address] CO2 26 22 - 32 mmol/L [facility]INA Comment:Testing performed by : [address] [address] Anion gap 9 2 - 15 mmol/L [facility]INA Comment:Testing performed by : [address] [address] BUN 24 6 - 25 mg/dL [facility] Comment:Testing performed by : [address] [address] Creatinine 1.06 0.60 - 1.10 mg/dL [facility] Comment:Testing performed by : [address] [address] Glucose 90 70 - 199 mg/dL [facility] Comment: Interpretive Data Fasting glucose >/= 126 mg/dl is diagnostic for diabetes. Fasting is defined as no caloric intake for at least 8 hours. Fasting glucose between 100 mg/dl to 125 mg/dl is diagnostic of prediabetes. In a patient with classic symptoms of hyperglycemia or hyperglycemic crisis, a random glucose >/= 200 mg/dl is diagnostic for diabetes. In the absence of unequivocal hyperglycemia, results should be confirmed by repeat testing. The classification and Diagnosis of Diabetes Diabetes Care 202; 46: S19-S40. Current interpretive data was last revised 2022. Testing performed by: [address] [address] Calcium 9.8 8.5 - 10.3 mg/dL [facility]INA Comment:Testing performed by : [address] [address] Bilirubin, total 1.2 0.1 - 1.2 mg/dL [facility] Comment:Testing performed by : [address] [address] Protein, pl 7.3 6.5 - 8.5 g/dL [facility] Comment:Testing performed by : [address] [address] Albumin 4.2 3.5 - 5.0 g/dL [facility] Comment:Testing performed by : [address] [address] Alk phos 103 40 - 130 Units/L [facility]INA PERRY Comment:Testing performed by : [address] [address] ALT 29 7 - 45 Units/L [facility]ORINA PERRY Comment:Testing performed by : [address] [address] AST 25 10 - 45 Units/L [facility] Comment:Testing performed by : [address] [address] Blood 06/05/2024 10:1 7 AM CDT 06/05/2024 12:40 PM CDT us Jesus Tapia MD LAB BLOOD ORDERABLES Final Result Performing Organization Address City/State/[facility] Co de Phone Number KORINA [address] [facility] [place] [address] * Urinalysis reflex to microscopic and culture Urine (06/05/2024 9:24 AM CDT) Color, ur Yellow Yellow Comment:Testing performed by : [address] [address] Clarity, ur Clear Clear KORINA Comment:Testing performed by : [address] [address] Specific gravity, ur 1.017 1.003 - 1.030 KORINA Comment:Testing performed by : [address] [address] pH, urine 6.0 KORINA Comment: Interpretive Data U rine pH is affected by diet, medications, systemic acid-base disturbances, and renal tubular function. pH may affect urinary stone formation. For example, urine pH below 6.0 may help reduce the tendency for calcium phosphate stones and pH greater than 6.0 may reduce the tendency for uric acid stone formation. Source: [facility] Current Interpretive Data was last revised on 2017 Testing performed by: [address] [address] Protein, ur ql Negative Negative KORINA PERRY Comment:Testing performed by : [facility], [address] [place] [address], [place]., [address] Glucose, ur ql Negative Negative KORINA Comment:Testing performed by : [address], [place]., [address] Ketones, ur Negative Negative KORINA Comment:Testing performed by : [address], [place]., [address] Bilirubin, ur Negative Negative KORINA Comment:Testing performed by : [address], [place]., [address] Blood, ur Negative Negative KORINA Comment:Testing performed by : [address], [place]., [address] Urobilinogen, ur <2.0 <2.0 mg/dL KORINA Comment:Testing performed by : [address], [place]., [address] Nitrite, ur Negative Negative KORINA Comment:Testing performed by : [address], [place]., [address] Leukocyte esterase, ur Negative Negative KORINA Comment:Testing performed by : [address], [place]., [address] UA reflex comment Reflex conditions for microscopic UA and culture not met. KORINA Comment:Testing performed by : [address], [place]., [address] Urine 06/05/2024 9:24 AM CDT 06/05/2024 5:22 PM CDT Umersefroilan Tapia MD LAB MICROBIOLOGY - G ENERAL ORDERABLES Final Result KORINA [address] [facility] [place] [address] * (ABNORMAL) POCT urinalysis dipstick (06/05/2024 9:24 AM CDT) Color, Urine, POC Yellow Clarity, ur, POC Clear Clear Glucose, ur, POC Negative Negative MG/DL Bilirubin, ur, POC 1+(A) Negative, Small, Moderate, Large Ketones, ur, POC Negative Negative Specific [place], POC 1.020 1.003 - 1.030 Blood, ur, POC Negative Negative pH, ur, POC 6.0 5.0 - 8.0 Protein, ur, POC Negative Negative Urobilinogen, urine, POC 0.2 0.2 - 1.0 mg/dL Nitrite, ur, POC Negative Negative Leukocytes, ur, POC Trace(A) Negative Lot Number 0 Urine 06/05/2024 9:24 AM CDT Jesus Tapia MD POINT OF CARE TEST O RDERABLES Final Result * US Outside Reference (05/30/2024 8:30 PM CDT) Impressions [facility] - 05/30/2024 8:30 PM CDT These images are for Reference purposes only and have not been reviewed by [facility] Radiology. There will be no report generated by a [facility] Radiologist. Narrative [facility] - 05/30/2024 8:30 PM CDT EXAMINATION: Images For Reference Purposes Only Jesus Tapia MD IMG US PROCEDURES Fi nal Result [facility] * Measure post void residual (05/22/2024 9:54 AM CDT) Narrative Cassie Baker Cailin - 05/22/2024 9:54 AM CDT Measurement of Post Void Residual urine and/or bladder capacity PVR = 81 ml Jesus Tapia MD NURSING ASSESSMENTS Final Result * CT Lung Cancer Screening (12/15/2023 9:35 AM CDT) Anatomical Region Laterality Modality Chest N/A Computed Tomogra phy 12/18/2023 6:18 AM CDT Narrative 12/18/2023 6:27 AM CDT EXAM DESCRIPTION: CT LUNG CANCER SCREENING REASON FOR STUDY: Screening CT of the chest in a former smoker with a 31 pack year smoking history. Additional history: Smoking cessation 14 years ago.. TECHNIQUE: Low dose CT scan of the chest was performed without intravenous contrast using helical scanning technique. The exam extends from the lung apices through the lung bases. Automatic exposure control was used as a dose optimization technique. NOTE: This study was performed for the specific purposes of lung cancer screening and is not an alternative to diagnostic chest CT. RADIATION DOSE: CT dose index volume (CTDIvol) = 2.05 mGy COMPARISON: 12/13/2022, 12/10/2021 and 12/09/2020. FINDINGS: SMOKING RELATED LUNG DISEASE: Mild to moderate emphysema. There is some unchanged scarring within the upper lobes. Minimal bronchial wall thickening. LUNG NODULES: 6 mm juxta fissural nodule right lower lobe image 149, stable. No new suspicious pulmonary nodule within either lung. CORONARY ARTERY CALCIFICATION: Present OTHER: There is no pneumonic consolidation. There are areas of subsegmental scarring and atelectasis noted. The central airways are widely patent. There is no effusion or pneumothorax. There are a few pleural calcifications as could be seen with sequela of prior asbestos exposure. The thyroid gland is grossly stable in size. Nodule on the left measuring 1.5 cm. This can be further evaluated with thyroid ultrasound. There is no mediastinal or hilar lymphadenopathy. The heart is at the upper limits of normal in size without significant pericardial effusion. The thoracic aorta is normal in caliber. The main pulmonary trunk is mildly enlarged, though stable compared to the prior study. There is no axillary lymphadenopathy. The chest wall is unremarkable. Visualized upper abdomen reveals postsurgical changes of bariatric surgery. Cholecystectomy changes are noted. No significant interval change in appearance compared to the prior examination. Thoracic spondylosis and degenerative disc disease. IMPRESSION: Mild to moderate emphysema. Stable 6 mm juxta fissural nodule right lower lobe. No new suspicious nodularity. Coronary artery calcifications. Additional findings as above. Thyroid nodule recommendation: According to guidelines published in the White Paper of the ACR Incidental Thyroid Findings Committee, follow-up recommendations for incidentally detected thyroid nodule are as follows: In patients 35 years with an incidental thyroid nodule ITN detected on CT, MRI, or extrathyroidal ultrasound, the committee recommends further evaluation with dedicated thyroid ultrasound if the nodule is 1.5 cm, without suspicious imaging features, and the patient has normal life expectancy. Lung-RADS category 2S: Benign appearance or behavior. Finding other than a pulmonary nodule which is potentially clinically significant. Recommendation: Low dose Screening CT of chest in 12 months. THIS IS AN ELECTRONICALLY VERIFIED FINAL REPORT 12/18/2023 6:27 AM - Electronically signed by Doris Wiley M.D. TW T: Report ID: [id number] Reading Location: [place] [address] Procedure Note Doris Wiley MD - 12/18/2023 EXAM DESCRIPTION: CT LUNG CANCER SCREENING REASON FOR STUDY: Screening CT of the chest in a former smoker with a31 pack year smoking history. Additional history: Smoking cessation 14 yearsago.. TECHNIQUE: Low dose CT scan of the chest was performed without intravenous contrast using helical scanning technique. The exam extends from the lung apices through the lung bases. Automatic exposure control was used as adose optimization technique. NOTE: This study was performed for the specific purposes of lung cancer screening and is not an alternative to diagnostic chest CT. RADIATION DOSE: CT dose index volume (CTDIvol) = 2.05 mGy COMPARISON: 12/13/2022, 12/10/2021 and 12/09/2020. FINDINGS: SMOKING RELATED LUNG DISEASE: Mild to moderate emphysema.There is some unchanged scarring within the upper lobes. Minimal bronchial wall thickening. LUNG NODULES: 6 mm juxta fissural nodule right lower lobe image 149,stable. No new suspicious pulmonary nodule within either lung. CORONARY ARTERY CALCIFICATION: Present OTHER: There is no pneumonic consolidation. There are areas ofsubsegmental scarring and atelectasis noted. The central airways are widely patent.There is no effusion or pneumothorax. There are a few pleural calcifications as could be seen with sequela of prior asbestos exposure. The thyroid glandis grossly stable in size. Nodule on the left measuring 1.5 cm. This can be further evaluated with thyroid ultrasound. There is no mediastinal orhilar lymphadenopathy. The heart is at the upper limits of normal in sizewithout significant pericardial effusion. The thoracic aorta is normal incaliber. The main pulmonary trunk is mildly enlarged, though stable compared to the prior study. There is no axillary lymphadenopathy. The chest wall is unremarkable. Visualized upper abdomen reveals postsurgical changes of bariatric surgery. Cholecystectomy changes are noted. No significant interval change in appearance compared to the prior examination. Thoracic spondylosis and degenerative disc disease. IMPRESSION: Mild to moderate emphysema. Stable 6 mm juxta fissural nodule right lower lobe. No new suspicious nodularity. Coronary artery calcifications. Additional findings as above. Thyroid nodule recommendation: According to guidelines published in theWhite Paper of the ACR Incidental Thyroid Findings Committee, follow-up recommendations for incidentally detected thyroid nodule are as follows:In patients 35 years with an incidental thyroid nodule ITN detected on CT,MRI, or extrathyroidal ultrasound, the committee recommends further evaluationwith dedicated thyroid ultrasound if the nodule is 1.5 cm, without suspicious imaging features, and the patient has normal life expectancy. Lung-RADS category 2S: Benign appearance or behavior. Finding other thana pulmonary nodule which is potentially clinically significant. Recommendation: Low dose Screening CT of chest in 12 months. THIS IS AN ELECTRONICALLY VERIFIED FINAL REPORT 12/18/2023 6:27 AM - Electronically signed by Doris Wiley M.D. TW T: Report ID: [id number] Reading Location: [place] [address] Ly Thomas MD IMG CT PROCEDURES Final Res ult from Last 3 Months or Most Recently Relevant to Health Maintenance [place] [address] [facility] IDPA [facility] MEDICARE ADVANTAGE IDPA [facility] MEDICARE ADVANTAGE Care Teams Media Marketing Coordinator Relationship Specialty Start Date End Date Carly Woods MD [address] [place] [address] PCP - General Internal Medicine 09/12/23 Unknown, Notinfile 06/21/18
--- OUTSIDE RECORDS SUMMARY | 2024-08-07 22:13 | XMS_ITS | Encounter Summary ---
Author Organization [facility] Facility Care Team Providers Care Wet Machine Cutter Name Role Phone Unknown, Notinfile Primary Care Provider Unavail able Lesli Willis MD Primary Care Provider [phone] Unknown, Notinfile Unavailable Unavailable Carly Woods MD Primary Care Provider Encounter Details Date Type Department Care Team (Latest Contact Info) Description 05/08/2014 Orders Only [facility] CLINCONV ProviderJune MD [address] [place] [address] Social History Tobacco Use Types Packs/Day Years Used Date Smoking Tobacco: Never Assessed Comments Unknown Sex and Gender Information Value Date Recorded Sex Assigned at Not on file Legal Sex Female 6:28 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
--- OUTSIDE RECORDS SUMMARY | 2024-08-07 22:13 | XMS_ITS | Encounter Summary ---
Author Organization [facility] Facility Care Team Providers Care Forklift Supervisor Name Role Phone Unknown, Notinfile Primary Care Provider Unavail able Lesli Willis MD Primary Care Provider [phone] Unknown, Notinfile Unavailable Unavailable Carly Wodos MD Primary Care Provider Encounter Details Date Type Department Care Team (Latest Contact Info) Description 03/06/2016 Orders Only [facility] CLINCONV ProviderJune MD [address] [place] [address] Social History Tobacco Use Types Packs/Day Years Used Date Smoking Tobacco: Never Assessed Comments Unknown Sex and Gender Information Value Date Recorded Sex Assigned at Not on file 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 Historical Provider Final Res ult documented in this encounter Visit Diagnoses Not on filedocumented in this encounter Care Teams Forklift Supervisor Relationship Specialty Start Date End Date Unknown, Notinfile PCP - General 02/12/18 06/20/18 Lesli Willis MD [address] [address] PCP - General Internal Medicine 06/21/18 09/11/23 Carly Woods MD [address] [address] PCP - General Internal Medicine 09/12/23 Unknown, Notinfile 06/21/18 documented as of this encounter
--- OUTSIDE RECORDS SUMMARY | 2024-08-07 22:13 | XMS_ITS | CONTINUITY OF CARE DOCUMENT ---
Author Name flores tanner Address Unknown Organization [facility] Address [address] [facility] [address] [place] [address] Phone [phone] Care Team Providers Care Assembler Golf Wood Head Name Role Phone Chris VIEYRA, Kailash Unavailable LILIANE NOWAK MD Unavailable [phone] LILIANE NOWAK MD Unavailable PROBLEMS Condition Status Date Provider Notes Bradycardia active Johanna Orellana INSURANCE PROVIDERS Payer name Policy type / Coverage type [place] red republican [employer] Medicaid 0 [id number] [facility] COMPLETE CARE [id number] (PPO C-SNP) Commercial insurance company [id number] TREATMENT PLAN Date Name Complete Echo
--- OUTSIDE RECORDS SUMMARY | 2024-08-07 22:13 | XMS_ITS | Encounter Summary ---
Author Organization [facility] Facility Care Team Providers Care Slate Cutter Name Role Phone Unknown, Notinfile Primary Care Provider Unavail able Lesli Willis MD Primary Care Provider [phone] Unknown, Notinfile Unavailable Unavailable Carly Woods MD Primary Care Provider Encounter Details Date Type Department Care Team (Latest Contact Info) Description 06/14/2017 Orders Only [facility] CLINCONV ProviderJune MD [address] [place] [address] Social History Tobacco Use Types Packs/Day Years Used Date Smoking Tobacco: Never Assessed Comments Unknown Sex and Gender Information Value Date Recorded Sex Assigned at Not on file 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
--- OUTSIDE RECORDS SUMMARY | 2024-08-07 22:13 | XMS_ITS | Encounter Summary ---
Author Organization [facility] Facility Care Team Providers Care Cloth Finishing Range Operator Name Role Phone Unknown, Notinfile Primary Care Provider Unavail able Lesli Willis MD Primary Care Provider [phone] Unknown, Notinfile Unavailable Unavailable Carly Woods MD Primary Care Provider Encounter Details Date Type Department Care Team (Latest Contact Info) Description 07/24/2015 Orders Only [facility] CLINCONV ProviderJune MD [address] [place] [address] Social History Tobacco Use Types Packs/Day Years Used Date Smoking Tobacco: Never Assessed Comments Unknown Sex and Gender Information Value Date Recorded Sex Assigned at Not on file Legal Sex Female 6:28 AM LIBRARY ASSOCIATE Gender Identity Not on file Sexual Orientation [...] on filedocumented in this encounter Care Teams Cloth Finishing Range Operator Relationship Specialty Start Date End Date Unknown, Notinfile PCP - General 02/12/18 06/20/18 Lesli Willis MD [address] [place] [address] PCP - General Internal Medicine 06/21/18 09/11/23 Carly Woods MD [address] [place] [address] PCP - General Internal Medicine 09/12/23 Unknown, Notinfile 06/21/18 documented as of this encounter
--- OUTSIDE RECORDS SUMMARY | 2024-08-07 22:13 | XMS_ITS | Clinical Summary ---
Author Organization [facility] Address [address] [facility] [place] [address] Care Team Providers Care Box Estimator Name Role Phone Lesli Willis MD Primary Care Provider [phone] Olinda Bermudez RN Unavailable Unavailabl e Source Comments [facility],non-owned Affiliates and Associated Physician Practices is amultiple site organization consisting of ambulatory clinics and hospital sitesin [place], [place], [place] and [place]. This disclosure is being madepursuant to the Care Everywhere program and may not contain all information available regarding this patient. Last updated 17.[facility] Allergies Active Allergy Reactions Criticality Noted Date Comments Ampicillin Itching Low 06/18/2015 Aspirin Other Low 03/15/2017 Stomach pain Codeine Anaphylaxis High 06/18/2015 Medications * Be aware that medications may not be up to date on this document. Alwaysverify current medications with the patient. metoprolol succinate XL 24hr (TOPROL XL) 100 MG tablet Take 1 (one) tablet by mouth DAILY 8 Active albuterol HFA (PROAIR HFA) 108 (90 BASE) MCG/ACT inhaler Inhale 2 (two) puffs by mouth every 6 hours as needed for Shortness of Breath or Cough 6 Active Iron-Vitamin C (IRON 100/C PO) Take 1 tablet by mouth once daily 100 mg iron 75 mg vitamin c per talbet Active amLODIPine (NORVASC) 10 MG tablet Take 1 (one) tablet by mouth once daily 8 Active budesonide-form oterol (SYMBICORT) 160-4.5 MCG/ACT inhaler Inhale 2 (two) puffs by mouth 2 times daily 1 Active gabapentin (NEURONTIN) 600 MG tablet Take 1 (one) tablet by mouth at bedtime 2 Active tiZANidine (Zanaflex) 4 MG tablet Take 1 (one) tablet by mouth once daily as needed 2 Active losartan (Cozaar) 100 MG tablet Take 1 (one) tablet by mouth once daily Active omeprazole (PriLOSEC) 20 MG capsule TAKE 1 CAPSULE BY MOUTH EVERY DAY BEFORE BREAKFAST 90 capsule 1 4 Active Active Problems Problem Noted Date Diagnosed Date Bariatric surgery status 01/05/2022 Pre-op testing 06/09/2017 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 Never true 01/06/2022 Comments No Sex and Gender Information Value Date Recorded Sex Assigned at Not on file Legal Sex Female 5:52 PM CLINICAL SPECIALIST MEDICAL DEVICE Gender Identity Not on file Sexual Orientation Not on file Last Filed Vital Signs Vital Sign Reading Time Taken Comments Blood Pressure 131/84 01/06/2023 10:13 AM CLINICAL SPECIALIST MEDICAL DEVICE Pulse 55 01/06/2023 10:13 AM CLINICAL SPECIALIST MEDICAL DEVICE Temperature 36.3 C (97.4 F) 01/06/2023 10:13 AM CLINICAL SPECIALIST MEDICAL DEVICE Respiratory Rate 18 02/04/2022 8:34 AM CLINICAL SPECIALIST MEDICAL DEVICE Oxygen Saturation 99% 01/06/2023 10:13 AM CLINICAL SPECIALIST MEDICAL DEVICE Inhaled Oxygen Concentration - - Weight 87.6 kg (193 lb 3.2 oz) 01/06/2023 10:13 AM CLINICAL SPECIALIST MEDICAL DEVICE Height 162.6 cm (5' 4) 01/06/2023 10:13 AM CLINICAL SPECIALIST MEDICAL DEVICE Body Mass Index 33.16 01/06/2023 10:13 AM CLINICAL SPECIALIST MEDICAL DEVICE Plan of Treatment Health Maintenance Due Date Last Done Comments COLOGUARD (AGES 45-75) - COLON CA SCREENING 1963 COLON MONITORING 1963 COLONOSCOPY - COLON CA SCREENING 1963 CT COLONOGRAPHY - COLON CA SCREENING 1963 Colorectal Cancer Screening 1963 FIT - COLON CA SCREENING 1963 FLEX SIG - COLON CA SCREENING 1963 LIPID TESTING 1963 MAMMOGRAM 1963 MEDICARE AWV 12 MONTHS 1963 PAP SMEAR 1963 HIV SCREENING 1978 HEPATITIS C SCREENING 04/03/1981 DTAP/TDAP/TD VACCINES (1 - Tdap) 1982 HEPATITIS B VACCINE (2 of 3 - 19+ 3-dose series) 05/15/2007 04/17/2007 PNEUMOCOCCAL VACCINE 50+ (1 of 1 - PCV) 2013 ZOSTER VACCINE (1 of 2) 2013 COVID-19 VACCINE (3 - season) 2023 06/11/2020, 05/14/2020 DEPRESSION SCREENING 02/28/2024 INFLUENZA VACCINE (Season Ended) 2024 12/10/2021, 12/14/2020, 03/03/2020, Additional history exists SCREENING FOR DIABETES 01/06/2026 , 08/05/2022, 04/28/2022, Additional history exists Respiratory Syncytial Virus (RSV) Vaccine Pt: or over 60 yrs (1 - 1-dose 75+ series) 2038 HIB VACCINE Aged Out No longer eligi ble based on patient's age to complete this topic HPV VACCINE Aged Out No longer eligi ble based on patient's age to complete this topic MENINGOCOCCAL (Group B) VACCINE SHARED DECISION-MAKING Aged Out No longer eligible based on patient's age to complete this topic MENINGOCOCCAL GROUPS A/C/Y/W VACCINE Aged Out No longer eligible based on patient's age to complete this topic Medical Devices Implanted Type Area Lvn Lpn Device Identifier Shelf Expiration Date Model / Serial / Lot Stent Uret 6fr 26cm Pstnr Brd Teth Implanted:Qty: 1 on 06/09/2017 by Aleksander Marino MD at [facility] Left: [employer] 01/24/2021 [id number] / / Stent Uret 6fr 26cm Pgtl Crv Tpr Tip Implanted:Qty: 1 on 07/11/2017 by Aleksander Marino MD at [facility] [place] [employer] 12/23/2019 [id number] / / [id number] Explanted Type Area Lvn Lpn Device Identifier Shelf Expiration Date Model / Serial / Lot Stent Uret 6fr 24cm Pgtl Crv Tpr Tip Implanted:Qty: 1 Explanted:Qty: 1 on 06/09/2017 at [facility] Left: [employer] [place] [employer] 04/11/2020 [id number] / / Procedures Procedure Name Priority Date/Time Associated Diagnosis Comments COMPREHENSIVE METABOLIC PANEL Routine 01/06/2023 12:41 PM CLINICAL SPECIALIST MEDICAL DEVICE Morbid obesity Bariatric surgery status Vitamin deficiency Vitamin D deficiency Postsurgical malabsorption from Last 3 Months or Most Recently Relevant to Health Maintenance Results * COMPREHENSIVE METABOLIC PANEL (01/06/2023 12:41 PM CLINICAL SPECIALIST MEDICAL DEVICE) Glucose 85 70 - 99 mg/dL [facility] [...] BLOOD SPECIMEN / Unknown 01/06/2023 12:41 PM CLINICAL SPECIALIST MEDICAL DEVICE 01/06/2023 Narrative Resulting Agency Comment Lab Testing performed at: [place] [id number] [facility] [id number] Karin Delvalle SENIOR MATERIALS PLANNER-FRAME GATE MORTISER OPERATOR LAB - CHEMISTRY BESSIE BARNARD Final Result [facility] INSURANCE BILL [address] [place] [address] from Last 3 Months or Most Recently Relevant to Health Maintenance Insurance MEDICAID - [place] MEDICARE MEDICARE MEDICAID - OUT OF STATE Advance Directives * Full Code (Latest Code Status on File) Date Activated Date Inactivated Comments 01/05/2022 2:15 PM 01/07/2022 4:22 PM * Full Code Date Activated Date Inactivated Comments 07/11/2017 9:40 AM 07/11/2017 6:36 PM Care Teams Box Estimator Relationship Specialty Start Date End Date Lesli Willis MD [address] [place] [address] PCP - General Internal Medicine 03/17/17 Olinda Bermudez RN 06/09/17
--- OUTSIDE RECORDS SUMMARY | 2024-08-07 22:13 | XMS_ITS | Encounter Summary ---
Author Organization [facility] Facility Care Team Providers Care Pipe Installer Name Role Phone Unknown, Notinfile Primary Care Provider Unavail able Lesli Willis MD Primary Care Provider Unknown, Notinfile Unavailable Unavailable Carly Woods MD Primary Care Provider Encounter Details Date Type Department Care Team (Latest Contact Info) Description 01/09/2018 Orders Only [facility]IN[facility] ProviderJune MD [address] [place] [id number] Social History Tobacco Use Types Packs/Day Years Used Date Smoking Tobacco: Never Assessed Comments Unknown Sex and Gender Information Value Date Recorded Sex Assigned at Not on file Legal Sex Female 6:28 AM CELLOPHANE CASTING MACHINE REPAIRER Gender Identity Not on file Sexual Orientation Not on file documented as of this encounter Plan of Treatment Not on file documented as of this encounter Procedures Procedure Name Priority Date/Time Associated Diagnosis Comments CARDIOLOGY REPORT 01/10/2018 12: 00 AM CELLOPHANE CASTING MACHINE REPAIRER documented in this encounter Results * CARDIOLOGY REPORT (01/10/2018 12:00 AM CELLOPHANE CASTING MACHINE REPAIRER) Anatomical Region Laterality Modality Other Narrative 01/10/2018 12:00 AM CELLOPHANE CASTING MACHINE REPAIRER Ordered by an unspecified provider. Historical Provider [facility] DANILO MELVIN Final Result documented in this encounter Visit Diagnoses Not on filedocumented in this encounter Care Teams Pipe Installer Relationship Specialty Start Date End Date Unknown, Notinfile PCP - General 02/12/18 06/20/18 Lesli Willis MD [address] [address] PCP - General Internal Medicine 06/21/18 09/11/23 Carly Woods MD [address] [address] PCP - General Internal Medicine 09/12/23 Unknown, Notinfile 06/21/18 documented as of this encounter
--- OUTSIDE RECORDS SUMMARY | 2024-08-07 22:13 | XMS_ITS | Encounter Summary ---
Author Organization [facility] Facility Care Team Providers Care Aeronautical Test Engineer Name Role Phone Unknown, Notinfile Primary Care Provider Unavail able Lesli Willis MD Primary Care Provider [phone] Unknown, Notinfile Unavailable Unavailable Carly Woods MD Primary Care Provider Encounter Details Date Type Department Care Team (Latest Contact Info) Description 06/13/2017 Orders Only [facility]INCON[facility] ProviderJune MD [address] [place] [address] Social History Tobacco Use Types Packs/Day Years Used Date Smoking Tobacco: Never Assessed Comments Unknown Sex and Gender Information Value Date Recorded Sex Assigned at Not on file 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
--- OUTSIDE RECORDS SUMMARY | 2024-08-07 22:13 | XMS_ITS | Encounter Summary ---
Author Organization [facility] Address [address] [facility] [address] [place] [address] Phone Care Team Providers Care Director Of Trauma Name Role Phone Unknown, Notinfile Unavailable Unavailable Carly Woods MD Primary Care Provider Encounter Details Date Type Department Care Team (Late st Contact Info) Description 06/26/2024 Results Follow-Up [facility] Surgery [address] [facility] [address] [place] [phone] Jesus Tapia MD [address] [facility] [place] [address] CT Urogram W Contrast No 3D Social History Tobacco Use Types Packs/Day Years Used Date Smoking Tobacco: Former Cigarettes 2009 Smokeless Tobacco: Never Alcohol Use Standard Drinks/Week Comments Not Currently 0 (1 standard drink = 0.6 oz pur e alcohol) Comments Unknown Sex and Gender Information Value Date Recorded Sex Assigned at Not on file 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
--- OUTSIDE RECORDS SUMMARY | 2024-08-07 22:13 | XMS_ITS | Encounter Summary ---
Author Organization [facility] Facility Care Team Providers Care Lei Seller Name Role Phone Unknown, Notinfile Primary Care Provider Unavail able Lesli Willis MD Primary Care Provider [phone] Unknown, Notinfile Unavailable Unavailable Carly Woods MD Primary Care Provider Encounter Details Date Type Department Care Team (Latest Contact Info) Description 10/22/2015 Orders Only [facility]INCON[facility] ProviderJune MD [address] [place] [address] Social History Tobacco Use Types Packs/Day Years Used Date Smoking Tobacco: Never Assessed Comments Unknown Sex and Gender Information Value Date Recorded Sex Assigned at Not on file 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
--- OUTSIDE RECORDS SUMMARY | 2024-08-07 22:13 | XMS_ITS | Encounter Summary ---
Author Organization [facility] Facility Care Team Providers Care Costume Shop Coordinator Name Role Phone Unknown, Notinfile Primary Care Provider Unavail able Lesli Willis MD Primary Care Provider [phone] Unknown, Notinfile Unavailable Unavailable Carly Woods MD Primary Care Provider Encounter Details Date Type Department Care Team (Latest Contact Info) Description 08/10/2015 Orders Only [facility]INCON[facility] ProviderJune MD [address] [place] [address] Social History Tobacco Use Types Packs/Day Years Used Date Smoking Tobacco: Never Assessed Comments Unknown Sex and Gender Information Value Date Recorded Sex Assigned at Not on file 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
--- OUTSIDE RECORDS SUMMARY | 2024-08-07 22:13 | XMS_ITS | Clinical Summary ---
Author Organization [facility] Address [address] [place] [address] Care Team Providers Care Undercutter Operator Name Role Phone Unknown, Notinfile Unavailable [...] TSH. Assessment & Plan (01/27/2020 5:33 PM DRYWALL HANGER): Salt restriction. Blood pressure control. Assessment & Plan (07/19/2019 3:27 PM CDT): Salt restriction. Blood pressure control. Assessment & Plan (01/15/2019 11:22 AM DRYWALL HANGER): Salt restriction. Blood pressure control. Assessment & Plan (07/10/2018 10:56 AM CDT): Stable. Blood pressure control. Salt restriction. Status post cardiac catheterization 07/09/2018 Assessment & Plan (07/24/2020 4:39 PM CDT): Cardiac catheterization 09/06/2012 showed no significant coronary disease. Assessment & Plan (01/27/2020 5:32 PM DRYWALL HANGER): Cardiac catheterization 09/06/2012 showed no significant coronary artery disease. Assessment & Plan (07/19/2019 3:27 PM CDT): Cardiac catheterization 09/06/2012 showed no significant coronary artery disease. Assessment & Plan (01/15/2019 11:23 AM DRYWALL HANGER): Cardiac catheterization 09/06/2012 showed no significant coronary [...] MR. Assessment & Plan (01/27/2020 5:31 PM DRYWALL HANGER): Moderate to severe mitral regurgitation by echo [...] pressure. Assessment & Plan (01/15/2019 11:21 AM DRYWALL HANGER): Moderate to severe mitral regurgitation by echo [...] weight. Assessment & Plan (01/27/2020 5:29 PM DRYWALL HANGER): Chronic. No cardiac factors to explain the dyspnea. Probably related to the pulmonary factors. Assessment & Plan (07/19/2019 3:25 PM CDT): Chronic. No cardiac factors to explain the dyspnea. Probably related to the pulmonary factors. Assessment & Plan (01/15/2019 11:21 AM DRYWALL HANGER): Chronic. No cardiac factors to explain the dyspnea. Probably related to the pulmonary factors. History of nicotine dependence 09/17/2015 Other secondary pulmonary hypertension 6 Assessment & Plan (07/24/2020 4:40 PM CDT): Related to the obstructive sleep apnea and morbid obesity. Echo Doppler June 2019, showed no pulmonary hypertension. Assessment & Plan (01/27/2020 5:34 PM DRYWALL HANGER): Related to the obstructive sleep apnea and [...] weight. Assessment & Plan (01/28/2020 11:50 AM DRYWALL HANGER): Lose weight. Assessment & Plan (07/23/2019 11:14 AM CDT): She was encouraged once again to lose weight. Assessment & Plan (07/10/2018 10:54 AM CDT): Was encouraged to lose weight. Precordial chest pain 07/17/2015 Assessment & Plan (07/24/2020 4:39 PM CDT): Stress echo 01/09/2018 was negative for ischemia. Assessment & Plan (01/27/2020 5:32 PM DRYWALL HANGER): Stress echo 01/09/2018 was negative for ischemia. Assessment & Plan (07/23/2019 11:15 AM CDT): Stress echo 01/09/2018 was negative for ischemia. Continues to have nonspecific chest wall pains off and on. Assessment & Plan (01/15/2019 11:22 AM DRYWALL HANGER): No chest pain on this visit. Stress [...] Date Heart failure, unspecified 09/17/2015 0 07/09/2018 Encounters Date Type Department Care Team Description 07/17/2024 8:20 AM CDT Office Visit [facility] Surgery [address] [place], [place] [phone] Jesus Tapia MD Hydronephrosis, unspecified hydronephrosis type (Primary Dx) 06/28/2024 Telephone [facility] Pulmonology [address] [address] [place] [address] Ly Thomas MD 06/26/2024 Results Follow-Up [facility] Surgery [address] [place] [id number] Jesus Tapia MD CT Urogram W Contrast No 3D 06/16/2024 2:46 PM CDT - 06/16/2024 11:59 PM CDT Hospital Encounter [facility] [address] [place] [address] Hydronephrosis, unspecified hydronephrosis type Discharge Disposition: Discharge to home or self care 06/05/2024 1:41 PM CDT - 06/05/2024 11:59 PM CDT Hospital Encounter [facility] Office Building 1 Lab [address] [place] [address] Hydronephrosis, unspecified hydronephrosis type Discharge Disposition: Discharge to home or self care 06/05/2024 9:55 AM CDT Lab [facility] Office Building [address] [place] [address] Hydronephrosis, unspecified hydronephrosis type 06/05/2024 9:20 AM CDT Office Visit [facility] Surgery [address] [facility] [address] [place] [phone] Jesus Tapia MD Hydronephrosis, unspecified hydronephrosis type (Primary Dx) 06/05/2024 Results Follow-Up [facility] Surgery [address] [facility] [address] [place] [address] Jesus Tapia MD CBC with auto differential, Differential, auto, Comprehensive metabolic panel, eGFR 05/30/2024 8:30 PM CDT - 05/30/2024 11:59 PM CDT Hospital Encounter [facility] ([facility] [address] [place] [address] Discharge Disposition: Discharge to home or self care 05/22/2024 10:00 AM CDT Office Visit [facility] Surgery [address] [address] [place] [phone] Jesus Tapia MD Hydronephrosis, unspecified hydronephrosis type 05/21/2024 3:30 PM CDT Office Visit [facility] Pulmonology [address] [facility] [address] [place] [address] Ly Thomas MD Obstructive sleep apnea (Primary Dx); Personal history of nicotine dependence; Elevated diaphragm; Other secondary pulmonary hypertension (HCC); Pulmonary nodules; Cigarette nicotine dependence in remission; Simple chronic bronchitis (HCC); Pulmonary air trapping from Last 3 Months Immunizations Immunization Administration Dates Next Due Hep [...] on file Legal Sex Female 6:28 AM DRYWALL HANGER Gender Identity Not on file Sexual Orientation [...] 162.6 cm (5' 4.02) 07/17/2024 8:31 AM CD T Body Mass Index 29.51 07/17/2024 8:31 AM CDT Plan of Treatment Health Maintenance Due Date Last Done Comments Breast Cancer Screening-Mammogram 1965 Cervical Cancer Screening 1963 Colon Cancer Screening-Colonoscopy 1963 Depression Screening 1963 Hepatitis C Screening 1963 DTaP/Tdap/Td Vaccine (1 - Tdap) 1974 Regular Well Visit/Exam 18-64 1981 Pneumococcal vaccine <65 (1 of 2 - PCV) 1982 Zoster Vaccine (1 of 2) 2013 Influenza Vaccine (Season Ended) 2024 12/10/2021, 03/03/2020, 11/07/2017 Lung Cancer Screening 12/15/2024 12/15/2023 , 12/13/2022, 12/10/2021, Additional history exists Hepatitis B Screening Completed 04/17/2007 Procedures Procedure Name Priority Date/Time Associated Diagnosis [...] Nito Acosta M.D. NS: NS Report ID: [id number] Reading Location: [id number] Procedure Note Nito Acosta MD - 06/26/2024 [...] Nito Acosta M.D. NS: NS Report ID: [id number] Reading Location: [place] [address] us Yousef John Tapia MD IMG CT [...] was last reviewed 2020. Testing performed by: [address] [address] Blood 06/05/2024 10:1 7 AM CDT 06/05/2024 12:40 PM CDT us Jesus Tapia MD LAB BLOOD ORDERABLES Final Result [facility] [address] [facility] Department [place] [address] * Differential, auto (06/05/2024 10:17 AM CDT) Neutrophil abs 3.64 1.50 - 6.50 K/cumm Comment:Testing performed by : [address] [address] Imm gran abs 0.01 0.00 - 0.10 K/cumm KORINA Comment:Testing performed by : [address] [address] Lymphocyte abs 1.81 0.80 - 3.30 K/cumm KORINA Comment:Testing performed by : [address] [address] Monocyte abs 0.41 0.20 - 0.80 K/cumm KORINA Comment:Testing performed by : [address] [address] Eosinophil abs 0.02 0.00 - 0.50 K/cumm KORINA Comment:Testing performed by : [address] [address] Basophil abs 0.02 0.00 - 0.10 K/cumm KORINA Comment:Testing performed by : [address] [address] Neutrophil pct 61.7 % KORINA Comment: Interpretive Data Percent cell count reference ranges are not reported, since discordance with absolute values may lead to misinterpretation of CBC data. Current Interpretive Data was last revised on 2017. Testing performed by: [address] [address] Imm gran pct 0.2 % [facility] Comment: Interpretive Data Percent cell count reference ranges are not reported, since discordance with absolute values may lead to misinterpretation of CBC data. Current Interpretive Data was last revised on 2017. Testing performed by: [address] [address] Lymphocyte pct 30.6 % [facility] Comment: Interpretive Data Percent cell count reference ranges are not reported, since discordance with absolute values may lead to misinterpretation of CBC data. Current Interpretive Data was last revised on 2017. Testing performed by: [address] [address] Monocyte pct 6.9 % [facility] Comment: Interpretive Data Percent cell count reference ranges are not reported, since discordance with absolute values may lead to misinterpretation of CBC data. Current Interpretive Data was last revised on 2017. Testing performed by: [address] [address] Eosinophil pct 0.3 % [facility] Comment: Interpretive Data Percent cell count reference ranges are not reported, since discordance with absolute values may lead to misinterpretation of CBC data. Current Interpretive Data was last revised on 2017. Testing performed by: [address] [address] Basophil pct 0.3 % [facility] Comment: Interpretive Data Percent cell count reference ranges are not reported, since discordance with absolute values may lead to misinterpretation of CBC data. Current Interpretive Data was last revised on 2017. Testing performed by: [address] [address] Blood 06/05/2024 10:1 7 AM CDT 06/05/2024 10:37 AM CDT us Yousef John Tapia MD LAB BLOOD ORDERABLES Final Result [facility] [address] [facility] Department [place] [address] * (ABNORMAL) CBC with auto differential (06/05/2024 10:17 AM CDT) [facility] Signature WBC 5.91 3.80 - 9.90 K/cumm Comment:Testing performed by : [address] [address] Hgb 10.4(L) 11.9 - 15.5 g/dL KORINA Comment:Testing performed by : [address] [address] Hct 34.1(L) 35.6 - 45.5 % KORINA Comment:Testing performed by : [address], [address] Plt 148(L) 150 - 400 K/cumm KORINA Comment:Testing performed by : [address], [address] MPV 12.1 9.1 - 12.3 fL KORINA Comment:Testing performed by : [address], [address] RBC 3.86(L) 3.90 - 5.20 M/cumm KORINA Comment:Testing performed by : [address], [address] MCV 88.3 81.3 - 96.4 fL KORINA Comment:Testing performed by : [address] [address] MCH 26.9(L) 27.1 - 33.3 pg KORINA Comment:Testing performed by : [address], [address] MCHC 30.5(L) 32.3 - 35.7 g/dL KORINA Comment:Testing performed by : [address], [address] RDW CV 13.8 11.1 - 14.9 % KORINA Comment:Testing performed by : [address], [address] RDW SD 44.9 35.7 - 48.1 fL KORINA Comment:Testing performed by : [address] [address] NRBC abs 0.00 0.00 - 0.01 K/cumm KORINA Comment:Testing performed by : [address] [address] Blood 06/05/2024 10:1 7 AM CDT 06/05/2024 10:37 AM CDT us Umersefroilan Tapia MD LAB BLOOD ORDERABLES Final Result [facility] [address] [facility] Department [place] [address] * Comprehensive metabolic panel (06/05/2024 10:17 AM CDT) Sodium 139 135 - 145 mmol/L Comment:Testing performed by : [address] [address] Potassium, pl 4.5 3.3 - 4.9 mmol/L KORINA Comment:Testing performed by : [address] [address] Chloride 104 97 - 110 mmol/L KORINA Comment:Testing performed by : [address] [address] CO2 26 22 - 32 mmol/L KORINA Comment:Testing performed by : [address] [address] Anion gap 9 2 - 15 mmol/L KORINA Comment:Testing performed by : [address] [address] BUN 24 6 - 25 mg/dL KORINA Comment:Testing performed by : [address] [address] Creatinine 1.06 0.60 - 1.10 mg/dL KORINA Comment:Testing performed by : [address] [address] Glucose 90 70 - 199 mg/dL KORINA [...] classification and Diagnosis of Diabetes Diabetes Care 2021; 46: S19-S40. Current interpretive data was last revised 2022. Testing performed by: [address] [address] Calcium 9.8 8.5 - 10.3 mg/dL KORINA Comment:Testing performed by : [address] [address] Bilirubin, total 1.2 0.1 - 1.2 mg/dL KORINA Comment:Testing performed by : [address] [address] Protein, pl 7.3 6.5 - 8.5 g/dL KORINA Comment:Testing performed by : [address] [address] Albumin 4.2 3.5 - 5.0 g/dL KORINA Comment:Testing performed by : [address] [address] Alk phos 103 40 - 130 Units/L KORINA Comment:Testing performed by : [address] [address] ALT 29 7 - 45 Units/L KORINA Comment:Testing performed by : [address] [address] AST 25 10 - 45 Units/L K[facility]INA Comment:Testing performed by : [address] [address] Blood 06/05/2024 10:1 7 AM CDT 06/05/2024 12:40 PM CDT us Yousef John Tapia MD LAB BLOOD ORDERABLES Final Result [facility] [address] [facility] Department [place] [address] * Urinalysis reflex to microscopic and culture Urine (06/05/2024 9:24 AM CDT) Color, ur Yellow Yellow Comment:Testing performed by : [address] [address] Clarity, ur Clear Clear KORINA Comment:Testing performed by : [address] [address] Specific gravity, ur 1.017 1.003 - 1.030 KORINA Comment:Testing performed by : [address] [address] pH, urine 6.0 KORINA Comment: Interpretive Data U rine pH is affected by diet, medications, systemic acid-base disturbances, and renal tubular function. pH may affect urinary stone formation. For example, urine pH below 6.0 may help reduce the tendency for calcium phosphate stones and pH greater than 6.0 may reduce the tendency for uric acid stone formation. Source: [facility] Current Interpretive Data was last revised on 2017 Testing performed by: [address] [address] Protein, ur ql Negative Negative KORINA Comment:Testing performed by : [address] [address] Glucose, ur ql Negative Negative KORINA Comment:Testing performed by : [address] [address] Ketones, ur Negative Negative KORINA Comment:Testing performed by : [address] [address] Bilirubin, ur Negative Negative KORINA Comment:Testing performed by : [address] [address] Blood, ur Negative Negative KORINA Comment:Testing performed by : [address] [address] Urobilinogen, ur <2.0 <2.0 mg/dL KORINA Comment:Testing performed by : [address] [address] Nitrite, ur Negative Negative KORINA Comment:Testing performed by : [address] [address] Leukocyte esterase, ur Negative Negative KORINA PERRY Comment:Testing performed by : [facility], [address] [place] [address], [place]., [address] UA reflex comment Reflex conditions for microscopic UA and culture not met. KORINA PERRY Comment:Testing performed by : [facility], [address] [place] [address]., [address] Urine 06/05/2024 9:24 AM CDT 06/05/2024 5:22 PM CDT us Jesus Tapia MD LAB MICROBIOLOGY - G ENERAL ORDERABLES Final Result [facility] P[facility] [address] [facility] Department [place] [address] * (ABNORMAL) POCT urinalysis dipstick (06/05/2024 9:24 AM CDT) Color, Urine, POC Yellow Clarity, ur, POC Clear Clear Glucose, ur, POC Negative Negative MG/DL Bilirubin, ur, POC 1+(A) Negative, Small, Moderate, Large Ketones, ur, POC Negative Negative Specific [place], POC 1.020 1.003 - 1.030 Blood, ur, POC Negative Negative pH, ur, POC 6.0 5.0 - 8.0 Protein, ur, POC Negative Negative Urobilinogen, urine, POC 0.2 0.2 - 1.0 mg/dL Nitrite, ur, POC Negative Negative Leukocytes, ur, POC Trace(A) Negative Lot Number 0 Urine 06/05/2024 9:24 AM CDT us Jesus Tapia MD POINT OF CARE TEST O RDERABLES Final Result * US Outside Reference (05/30/2024 8:30 PM CDT) Impressions [facility] - 05/30/2024 8:30 PM CDT These images are for Reference purposes only and have not been reviewed by [facility]. There will be no report generated by a [facility] Radiologist. Narrative [facility] - 05/30/2024 8:30 PM CDT EXAMINATION: Images For Reference Purposes Only Jesus Tapia MD IMG US PROCEDURES Fi nal Result [facility] * Measure post void residual (05/22/2024 9:54 AM CDT) Narrative Cassie Baker JANNIE - 05/22/2024 9:54 AM CDT Measurement of [...] Doris Wiley M.D. TW T: Report ID: [id number] Reading Location: [id number] Procedure Note Doris Wiley MD - 12/18/2023 [...] Doris Wiley M.D. TW T: Report ID: [id number] Reading Location: [id number] Ly Thomas MD IMG CT PROCEDURES Final Res ult from Last 3 Months or Most Recently Relevant to Health Maintenance Insurance MEDICARE [facility] MEDICARE ADVANTAGE [facility] Address: [address] [address] [place] [address] [employer]PA [facility] MEDICARE ADVANTAGE Care Teams Undercutter Operator Relationship Specialty [place] [address] [place] [address] PCP - General Internal Medicine 09/12/23 Unknown, Notinfile 06/21/18
[2024-08-07 22:17] LABS: Alanine Aminotransferase 20 U/L (6-35); Albumin Level 4.1 g/dL (3.5-5.1); Alkaline Phosphatase 95 U/L (38-126); Anion Gap 7 mmol/L (4-12); Aspartate Amino Transferase 28 U/L (14-36); Bilirubin,Total 1.2 mg/dL (0.2-1.3); Blood Urea Nitrogen 19 mg/dL (7-17); Calcium 9.2 mg/dL (8.4-10.2); Carbon Dioxide 22 mmol/L (22-30); Chloride 110 mmol/L (98-107); Estimated CRCL calculation 44 ml/min; Estimated Glomerular Filt Rate 44; Glucose 100 mg/dL (65-110); Potassium 3.8 mmol/L (3.4-5.0); Sodium 139 mmol/L (137-145); Total Protein 7.2 g/dL (6.3-8.2)
[2024-08-07] MEDS: SODIUM CHLORIDE 0.9% IV 1,000 ML 999 ML IV CONT (22:20)
[2024-08-08] VITALS: BP 107/66; PULSE 56; RESP 10; O2SAT 100
--- NOTE | 2024-08-08 00:10 | ED.GENADULT ---
HPI - General Adult General Chief complaint: Syncope Stated complaint: SYNCOPAL EPISODE WHILE ON COMMODE Time Seen by Provider: 08/07/24 21:10 History of Present Illness HPI narrative: This is a 59-year-old female presenting after syncopal event. Patient has had diarrhea for the last 3 days. While she was on the commode today she lost consciousness and fell forward onto her knees. Her daughter then went into the room and she woke up immediately return to her baseline mental status. She did not strike her head. She is not on blood thinners. The patient did not want to come to the emergency room but her daughter insisted she come to get checked out. This time the patient has no complaints other than the 3 days of diarrhea no fevers chills chest pain difficulty breathing abdominal pain or urinary symptoms. Related Data Allergies Allergy/AdvReac Type Severity Reaction Status Date / Time No Known Allergies Allergy Mild Verified 02/22/09 15:05 [facility] Family History Family History (Updated 10/24/13 @ 07:13 by DOCTOR UNKNOWN) Mother Hypertension Family history of heart disease in male family member before age 55 Sibling Asthma Father Family history of heart disease in male family member before age 55 Social History Social History Smoking status: Never smoker Alcohol intake: never Exam Narrative: APPEARANCE: No apparent distress. A&O x3 Head: atraumatic. EYES: EOMI, NOSE: Atraumatic NECK: Trachea midline RESPIRATORY: No increased rate of breathing clear to auscultation CARDIOVASCULAR: RRR, no peripheral edema ABDOMINAL: Non-distended soft nontender MUSCULOSKELETAl: No obvious deformities NEURO: Alert. Cranial nerves 2-12 grossly intact. Sensation light touch, motor function cerebellar function intact for 4 extremities. Gait exam was normal. SKIN:: Warm, dry. Normal color PSYCHIATRIC: Normal affect Course Vital Signs Vital signs: Vital Signs Temperature 98.5 F 08/07/24 21: Pulse Rate 50 L 08/07/24 21: Respiratory Rate 12 08/07/24 21:09 Blood Pressure 98/65 L 08/07/24 21:09 Pulse Oximetry 100 08/07/24 21:09 Oxygen Delivery Room Air 08/07/24 21:09 Temperature 98.5 F 08/07/24 21:09 Pulse Rate 54 L 08/07/24 23:31 Respiratory Rate 15 08/07/24 23:31 Blood Pressure 113/69 08/07/24 23:31 Pulse Oximetry 100 08/07/24 23:31 Oxygen Delivery Room Air 08/07/24 21:09 Medical Decision Making [facility] Narrative Medical decision making narrative: -Course: 59-year-old female presenting after a syncopal event in the setting of 3 days of diarrhea and having a bowel movement. Blood pressure was low with EMS. Blood pressure was fluid responsive. she has received 2 L of normal saline. Laboratory studies and chest x-ray were unremarkable. EKG shows sinus bradycardia which the daughter and the patient assure me is normal for her. I discussed the the need for a CT brain or C-spine as she had a fall and the family has declined. They say that she did not strike her head she does not have any signs of head trauma or neck pain. On re-evaluation patient states she is feeling better. Her blood pressure has improved to which she says is her baseline. She has been able to ambulate around the ED with a steady gait. She will be discharged with antidiarrheal medication. Given return precautions. -DDX includes but is not limited to: Vasovagal syncope, orthostatic syncope gastroenteritis, dehydration Independent EKG interpretation: Rhythm [sinus], Rate [49], [place] -[normal], [place] -[normal], QRS [narrow], QTC [normal], T waves -[negative for concerning inversions], ST Segments - [Negative for concerning elevations] Final interpretations: Sinus bradycardia Vital Signs Vital Signs: Vital Signs Temperature 98.5 F 08/07/24 21:09 Pulse Rate 50 L 08/07/24 21:09 Respiratory Rate 12 08/07/24 21:09 Blood Pressure 98/65 L 08/07/24 21:09 Pulse Oximetry 100 08/07/24 21:09 Oxygen Delivery Room Air 08/07/24 21:09 Temperature 98.5 F 08/07/24 21:09 Pulse Rate 54 L 08/07/24 23:31 Respiratory Rate 15 08/07/24 23:31 Blood Pressure 113/69 08/07/24 23:31 Pulse Oximetry 100 08/07/24 23:31 Oxygen Delivery Room Air 08/07/24 21:09 Lab Data 08/07/24 21:57 08/07/24 21:57 Labs: Lab Results 08/07/24 Range/Units 21:57 WBC 9.6 (4.5-10.0) K/mm3 RBC 3.90 L (4.2-5.4) M/mm3 Hgb 10.7 L (12.0-15.0) g/dL Hct 35.0 L (37.0-47.0) % MCV 89.7 (80-100) fl MCH 27.4 (26-34) pg MCHC 30.6 L (32-36) g/dl RDW 13.2 (11.5-14.5) % Plt Count 167 (150-375) k/mm3 MPV 11.1 H (7.4-10.4) fl Immature Gran % (Auto) 0.2 (0-0.5) % Neut % (Auto) 73.5 H (45.5-73.1) % Lymph % (Auto) 18.8 (18.3-44.2) % [place] % (Auto) 6.7 (2.6-8.5) % Eos % (Auto) 0.4 (0-4.4) % Baso % (Auto) 0.4 (0.2-1.2) % Lymph # (Auto) 1.80 (0.9-3.2) K/mm3 [place] # (Auto) 0.6 (0.1-0.6) K/mm3 Eos # (Auto) 0.0 (0-0.3) K/mm3 Baso # (Auto) 0.0 (0.0-0.1) K/mm3 Abs Immat Gran (auto) 0.02 (0.00-0.031) K/mm3 Absolute Neuts (auto) 7.0 H (1.3-6.7) K/mm3 Absolute Nucleated RBC 0.000 (0.0-0.012) K/mm3 Nucleated RBC % 0.0 (0.0-0.2) % Sodium 139 (137-145) mmol/L Potassium 3.8 (3.4-5.0) mmol/L Chloride 110 H (98-107) mmol/L Carbon Dioxide 22 (22-30) mmol/L Anion Gap 7 (4-12) mmol/L BUN 19 H (7-17) mg/dL Creatinine 1.23 H (0.7-1.0) mg/dL Estim Creat Clear Calc 44 ml/min Estimated GFR 44 L (59 - ) Glucose 100 (65-110) mg/dL Calcium 9.2 (8.4-10.2) mg/dL Total Bilirubin 1.2 (0.2-1.3) mg/dL AST 28 (14-36) U/L ALT 20 (6-35) U/L Alkaline Phosphatase 95 (38-126) U/L Total Protein 7.2 (6.3-8.2) g/dL Albumin 4.1 (3.5-5.1) g/dL Discharge Plan Discharge Clinical Impression: Syncope due to orthostatic hypotension, Diarrhea Patient Disposition: Home Condition: Stable Instructions: Antibiotic Form, Dehydration (ED), Syncope (ED) Additional Instructions: You were seen in the emergency department for a syncopal event. This is likely due to your diarrhea. Please make sure you are drinking plenty of fluids. Please try [id number] diarrhea medicines like Pepto-Bismol or imodium. She develops any new symptoms such as fevers chest pain difficulty breathing abdominal pain or bloody diarrhea please return to the ED. If you feel she is getting worse please return emergency department for re-evaluation. Patient Language: Turkish Prescriptions: New loperamide [Imodium A-D] 2 mg capsule 2 mg PO Q6H PRN (Reason: loose stool) Qty: 14 0RF Follow-up/Referrals: Chuck,Jeffy Carroll [Primary Care Provider] -
[2024-08-08 00:15] VITALS: BP 108/74; PULSE 68; RESP 16; O2SAT 100
== END 2024-08-08 00:42 | disposition home or self-care (01) ==
PROVIDERS: Emergency Provider Emergency Medicine; PCP Internal Medicine Infectious Disease
DX: I95.1 Orthostatic hypotension (principal); R19.7 Diarrhea, unspecified; R00.1 Bradycardia, unspecified
CPT/HCPCS: 36415; 71045; 80053; 85025; 93005; 96360; 99284; J7030

== ENCOUNTER 2024-08-09 10:00 | Outpatient (CLI) | payer MEDICARE, SELFPAY ==
--- NOTE | ~2024-08-09 | CT_ITS ---
CT of the Abdomen and Pelvis: Indication: Abdominal pain Technique: 2.5 mm axial scans were obtained through the abdomen and pelvis following intravenous adm inistration of 100 cc of Omnipaque 350. Dose reduction technique was used on this scan by utilizing a utomated exposure control and iterative reconstruction technique. The dose-length product (DLP) was 6 03.05 mGy-cm. Findings: Scans through the lung bases are unremarkable. Intrahepatic and extrahepatic dilatation is presumably related to prior cholecystectomy. No hepatic m ass evident. The spleen, pancreas, adrenals and kidneys are within normal limits. No evidence of aor tic aneurysm. No lymphadenopathy. Questionable mild diffuse small bowel wall thickening. No bowel obstruction. No abscess or free air. Images through the pelvis were performed. Urinary bladder unremarkable. No pelvic mass seen. No ascit es. Impression: Questionable nonspecific enteritis. Intrahepatic and extrahepatic biliary dilatation is likely related to prior cholecystectomy. Reviewed, dictated and finalized at [facility]. Impression: Questionable nonspecific enteritis. Intrahepatic and extrahepatic biliary dilatation is likely related to prior cho lecystectomy.
[2024-08-09 10:31] LABS: Estimated Glomerular Filt Rate 46
== END 2024-08-09 10:01 | disposition home or self-care (01) ==
PROVIDERS: PCP Internal Medicine Infectious Disease; Visit Provider Internal Medicine Infectious Disease
DX: K83.8 Other specified diseases of biliary tract (principal)
CPT/HCPCS: 74177; Q9967